=== PATIENT | female | born 1995 | race Caucasian/White ===

== ENCOUNTER 2017-08-24 13:19 | Emergency (ER) | payer SELFPAY ==
[~2017-08-24] VITALS: Ht 157.5 cm; Wt 49.6 kg
[~2017-08-24 13:19] MED LIST: ONDA4TAB10 SL; PRLSR20 PO; SUMA50TA15 PO
[2017-08-24 13:34] VITALS: TEMP 37.7; Ht 157.5 cm; Wt 49.6 kg
[2017-08-24] MEDS ORDERED: ONDANSETRON INJ 2 MG/ML 2 ML VIAL IV STA (14:37)
[2017-08-24] MEDS ORDERED: SODIUM CHLORIDE 0.9% 1000ML 1,000 ML IV STA (14:37)
[2017-08-24 15:21] VITALS: O2SAT 98
[2017-08-24 15:23] LABS: BASO % 0.2 %; BASO ABS # 0.02 K/uL (0-0.2); EOS % 3.2 %; EOS ABS # 0.27 K/uL (0-0.5); HEMOGLOBIN 13.4 g/dL (12.0-16.0); IG# 0.01 K/uL (0.00-0.02); LYMPH % 22.1 %; LYMPH ABS # 1.85 K/uL (1.2-3.4); MEAN CELL VOLUME 92.6 fL (80-100); MEAN CORPUSCULAR HEMOGLOBIN 31.8 pg (25-34); MEAN CORPUSCULAR HGB CONC 34.4 g/dl (32-36); MEAN PLATELET VOLUME 8.9 fL (7.4-10.4); MONO % 7.3 %; MONO ABS # 0.61 K/uL (0.11-0.59); NEUT % 67.1 %; PLATELET COUNT 321 K/uL (130-400); RED CELL DISTRIBUTION WIDTH CV 13.2 % (11.5-14.5); RED CELL DISTRIBUTION WIDTH SD 44.6 fL (36.4-46.3); WHITE BLOOD COUNT 8.36 K/uL (4.8-10.8)
--- NOTE | 2017-08-24 15:30 | EMERGENCY ROOM VISIT NOTE ---
History First contact with patient: 14:25 Chief Complaint: DIZZY Stated Complaint: DIZZY,SKIN TURNS BLUE Nursing Triage Summary: Pt states was checked for the flu last week, neg. Pt states, "This morning I went to work, got drenched in sweat. My fingers turn blue. My skin feels like it's on fire and I threw up one time. I have been nauseated since and feel dizzy. It feels like I'm short of breath, but I don't think I really am. My heart isn't beating fast or anything. I've had really sharp cramps for two weeks now." History of Present Illness The patient is a 21 year old female who presents to the Emergency Room with complaints of feeling lightheaded/dizzy like she might pass out that started today. Patient states her symptoms started while she was at work. She states she became very lightheaded, nauseated and vomited one time, and states she was drenched in sweat. She states her hands and feet started to become numb and tingling, then turned blue and her lips also turned blue. She states her symptoms lasted for several hours, but have mostly resolved at this time. She reports some tightness in her chest during the symptoms, but denies any chest pain or shortness of breath. She states the dizziness is worse when she is standing or walking around, and better if she is sitting or lying down. She states she had a similar episode 3 weeks ago. She was seen by her primary care provider last week to be tested for the flu due to fevers and her rash, she states this was negative. She denies any continued fevers, but states she has been having body aches and chills. She states she called her primary care provider today and was told to come to the ER for further evaluation. She also states that she has been having severe abdominal cramps for the past week that calming go, these are currently constant and she rates her pain as 6/10. She has not taken any medication for pain. She reports a history of ovarian cysts and irregular periods, she is unsure of her last menstrual period but thinks it was 2 or 3 months ago. She states she is sexually active and monogamous with her fianc, she states she did take a test at home yesterday and reports this was negative. She denies any dysuria, hematuria, or urinary frequency. Review of Systems A complete 10 point review of systems was reviewed with the patient with pertinent positives and negatives as per history of present illness. All else were negative. Past Medical/Surgical History Medical Problems: (1) Esophageal Reflux (2) Ovarian Cyst Nec/Nos (3) Personal History, Pneumonia (Recurrent) Surgical Problems: (1) No significant past surgical history Family History FH: migraines Social History Smoking Status: Current Every Day Smoker Alcohol Use: occasionally Drug Use: none Marital Status: in relationship Housing Status: lives with family Occupation Status: student Current/Historical Medications Scheduled Ondasetron Odt (Zofran Odt), 4 MG SL Q6H Allergies Reviewed in chart Physical Exam Vital Signs Date Time Temp Pulse Resp B/P (MAP) Pulse Ox O2 Delivery O2 Flow Rate FiO2 08/24/17 17:33 83 20 103/70 100 Room Air 08/24/17 16:33 73 20 105/64 79 96/79 79 114/74 08/24/17 16:18 72 08/24/17 15:21 98 Room Air 08/24/17 13:34 37.7 98 18 116/77 99 Room Air Physical Exam CONSTITUTIONAL: Pleasant and cooperative. No acute distress. Mildly dehydrated , but otherwise well appearing and well nourished. HEENT: Normocephalic, atraumatic. Pupils equal, round and reactive to light, EOMI. TMs normal. Pharynx normal. Tacky mucous membranes. NECK: Supple, full active range of motion without discomfort. RESPIRATORY: Clear to auscultation bilaterally with no wheezing, crackles, rhonchi or stridor. Equal expansion bilaterally. CARDIOVASCULAR: Regular rate and rhythm with no murmurs, rubs or gallops. Normal peripheral perfusion, extremities are pink and warm with intact pulses and brisk cap refill. No edema. GASTROINTESTINAL: Soft, diffuse mildly tender in the lower abdomen, most tender in the left lower quadrant, nondistended. No rebound tenderness or guarding. No CVA tenderness. No palpable masses or HSM. Bowel sounds present in all quadrants. PELVIC EXAM: VULVA: No ulcers, vesicles or atrophy. VAGINA: Clear-white discharge, no foul odor, no blood. CERVIX: Closed, pink, nontender, no cervical motion tenderness, no discharge. UTERUS: Normal size, nontender. ADNEXA: No masses or tenderness. A nurse was present as a raw hide trimmer during the examination. MUSCULOSKELETAL: Full range of motion of all joints without discomfort. INTEGUMENTARY: No rash or other significant dermatologic conditions noted. NEUROLOGIC: Alert and oriented X 4 with normal affect. Cranial nerves II-XII grossly intact. No focal neurologic deficits noted. Normal strength and sensation in all 4 extremities. Negative pronator drift. Negative Romberg. Normal speech. Normal gait observed. Medical Decision & Procedures ER Provider Diagnostic Interpretation: PELVIC COMPLETE NON OB HISTORY: 21 years-old Female lower abdominal pain, eval ovarian cyst, r/o torsion acute left lower quadrant abdominal pain COMPARISON: Pelvic ultrasound 01/16/2016 TECHNIQUE: Multiple real-time sonographic images of the deep pelvic structures were obtained transabdominally assessing grayscale appearance, color and spectral flow FINDINGS: Anteflexed uterus measures 8.5 x 3.7 x 5.0 cm. Endometrium measures 1.6 cm and is homogeneous. No myometrial mass lesions identified. The right ovary measures 3.6 x 1.9 x 2.6 cm and is unremarkable with arterial inflow documented. Left ovary is also within normal limits measuring 3.8 x 1.7 x 3.9 cm with arterial inflow documented. No adnexal mass lesions identified. Normal follicles are seen. Trace free pelvic fluid, likely physiologic. IMPRESSION: 1. Unremarkable sonographic appearance of the uterus and ovaries. No evidence of ovarian torsion or ovarian cyst. 2. Trace free pelvic fluid, likely physiologic. 3. Endometrium measures within the upper limits of normal at 1.6 cm, likely secondary to secretory phase of menstrual cycle. ----- CHEST 2 VIEWS ROUTINE HISTORY: 21 years-old Female EVALUATE ALTERED MENTAL STATUS/WEAKNESS acute dizziness with altered mental status COMPARISON: Chest radiograph 04/11/2016 TECHNIQUE: PA and lateral views of the chest FINDINGS: Cardiomediastinal and hilar silhouettes are within normal limits. No pneumothorax, pleural effusion, focal airspace consolidation or overt pulmonary edema. Bones of the chest appear grossly intact. IMPRESSION: No acute process. Laboratory Results 08/24/17 15:05 Red Blood Count 4.21, Mean Corpuscular Volume 92.6, Mean Corpuscular Hemoglobin 31.8, Mean Corpuscular Hemoglobin Concent 34.4, Mean Platelet Volume 8.9, Neutrophils (%) (Auto) 67.1, Lymphocytes (%) (Auto) 22.1, Monocytes (%) (Auto) 7.3, Eosinophils (%) (Auto) 3.2, Basophils (%) (Auto) 0.2, Neutrophils # (Auto) 5.60, Lymphocytes # (Auto) 1.85, Monocytes # (Auto) 0.61, Eosinophils # (Auto) 0.27, Basophils # (Auto) 0.02 08/24/17 15:05 Test 08/24/17 15:05 08/24/17 17:45 08/24/17 18:01 White Blood Count 8.36 K/uL (4.8-10.8) Red Blood Count 4.21 M/uL (4.2-5.4) Hemoglobin 13.4 g/dL (12.0-16.0) Hematocrit 39.0 % (37-47) Mean Corpuscular Volume 92.6 fL (80-100) Mean Corpuscular Hemoglobin 31.8 pg (25-34) Mean Corpuscular Hemoglobin Concent 34.4 g/dl (32-36) Platelet Count 321 K/uL (130-400) Mean Platelet Volume 8.9 fL (7.4-10.4) Neutrophils (%) (Auto) 67.1 % Lymphocytes (%) (Auto) 22.1 % Monocytes (%) (Auto) 7.3 % Eosinophils (%) (Auto) 3.2 % Basophils (%) (Auto) 0.2 % Neutrophils # (Auto) 5.60 K/uL (1.4-6.5) Lymphocytes # (Auto) 1.85 K/uL (1.2-3.4) Monocytes # (Auto) 0.61 K/uL (0.11-0.59) Eosinophils # (Auto) 0.27 K/uL (0-0.5) Basophils # (Auto) 0.02 K/uL (0-0.2) RDW Standard Deviation 44.6 fL (36.4-46.3) RDW Coefficient of Variation 13.2 % (11.5-14.5) Immature Granulocyte % (Auto) 0.1 % Immature Granulocyte # (Auto) 0.01 K/uL (0.00-0.02) Urine Color YELLOW Urine Appearance CLEAR (CLEAR) Urine pH 7.5 (4.5-7.5) Urine Specific [place] 1.010 (1.000-1.030) Urine Protein NEG (NEG) Urine Glucose (UA) NEG (NEG) Urine Ketones NEG (NEG) Urine Occult Blood NEG (NEG) Urine Nitrite NEG (NEG) Urine Bilirubin NEG (NEG) Urine Urobilinogen NEG (NEG) Urine Leukocyte Esterase NEG (NEG) Urine Test NEG (NEG) Anion Gap 6.0 mmol/L (3-11) Est Creatinine Clear Calc Drug Dose 95.5 ml/min Estimated GFR () 136.5 Estimated GFR (Non- 117.7 BUN/Creatinine Ratio 15.6 (10-20) Calcium Level 9.0 mg/dl (8.5-10.1) Total Bilirubin 0.6 mg/dl (0.2-1) Direct Bilirubin 0.1 mg/dl (0-0.2) Aspartate Amino Transf (AST/SGOT) 13 U/L (15-37) Alanine Aminotransferase (ALT/SGPT) 17 U/L (12-78) Alkaline Phosphatase 59 U/L (45-117) Total Protein 7.8 gm/dl (6.4-8.2) Albumin 4.2 gm/dl (3.4-5.0) Thyroid Stimulating Hormone (TSH) 0.888 uIu/ml (0.300-4.500) Monoscreen NEG (NEG) Influenza Type A Antigen Neg for Influ A (NEG) Influenza Type B Antigen Neg for Influ B (NEG) Medications Administered Medications (Trade) Dose Ordered Sig/Lorenza Route Start Time Stop Time Status Last Admin Dose Admin Sodium Chloride 1,000 ml @ 999 mls/hr Q1H1M STAT IV 08/24/17 14:37 08/24/17 15:37 DC 08/24/17 15:23 999 MLS/HR Ondansetron HCl (Zofran Inj) 4 mg NOW STAT IV 08/24/17 14:37 08/24/17 14:41 DC 08/24/17 15:23 4 MG Ketorolac Tromethamine (Toradol Inj) 15 mg NOW STAT IV 08/24/17 17:17 08/24/17 17:19 DC 08/24/17 17:41 15 MG ECG Indication: other (dizziness) Rate (beats per minute): 68 Rhythm: normal sinus Findings: no acute ischemic change, no ectopy Change: no significant change (when compared to EKG from 10/10/2010) Medical Decision CC: Patient presenting with complaint of lightheadedness, feeling like she will pass out Interpretation of Labs: No leukocytosis, no anemia, no significant electrolyte abnormalities, normal renal function, normal liver enzymes and lipase. TSH within normal limits. Monospot negative. Influenza negative. UA negative, urine negative. Differential Diagnosis: Includes, but not limited to dehydration, orthostasis, vasovagal, near syncope, cardiac arrhythmia, electrolyte abnormality, ovarian cyst, ectopic , ovarian torsion, influenza, mononucleosis, UTI, among others. Medication Reconciliation: I attest that I have personally reviewed the patient' s current medication list. Initial vital signs review: I reviewed the patient's vital signs and interpret them as follows: T: Afebrile; BP: Normotensive; HR: Within normal limits; RR : Within normal; Pulse Ox: Within normal limits on room air. Blood pressure screening: The patient was found to have normal blood pressure on screening and does not require follow-up for repeat blood pressure check. Negative orthostatic vital signs, although these appear to be done after patient received IV fluid bolus, and her heart rate is noted to be about 20-30 points lower than on arrival after IV fluids. Summary: Patient was evaluated at bedside, history and physical exam performed. Patient is alert and oriented, in no acute distress, resting calmly in the stretcher. Neurologic exam is normal with no focal deficits. The patient appears mildly dehydrated on exam. Orders were placed at bedside for labs, UA and urine , IV fluids for hydration, Zofran for nausea, chest x-ray, EKG, pelvic ultrasound to evaluate for ovarian pathology Patient discussed with Dr. Rubi, who agrees with my assessment and plan. Labs reviewed as above, unremarkable. EKG shows normal sinus rhythm with no acute ischemic changes and unchanged from previous EKG by my interpretation. Pelvic ultrasound is unremarkable, no ovarian cyst or torsion. Chest x-ray is unremarkable. Patient reassessed multiple times throughout ED stay, she is feeling much better after the Zofran and IV fluids. She is still complaining of some abdominal cramps, she was given IV Toradol for this. I discussed the option of a pelvic exam with the patient, she states she would like to do this and would like to be tested for STDs. Pelvic exam was unremarkable, no CMT, generalized tenderness, or abnormal discharge to concern for active STD or PID. Cultures for chlamydia, gonorrhea, trichomoniasis were sent to the lab. Patient was updated on all results and plan for discharge, and was encouraged to follow up closely with her PCP for continued evaluation and management of her symptoms. She was also given strict return precautions should her symptoms worsen, she verbalized understanding. The patient was discharged home in stable condition and ambulatory. Impression Primary Impression: Light headed Additional Impressions: Dehydration Pelvic pain Departure Information Dispostion Home / Self-Care Condition GOOD Prescriptions Ondasetron Odt (ZOFRAN ODT) 4 Mg Tab 4 MG SL Q6H for Nausea, #6 TAB Prov: Justyna Wright, NIELS 08/24/17 Referrals Michelle Reid D.O. (PCP) Patient Instructions ED Near Syncope [place], ED Pelvic [facility] Additional Instructions You have been treated in the Emergency Department for your pelvic pain and dizziness. Laboratory results and imaging studies have ruled out any emergent causes for your symptoms which would warrant admission or surgery. Your Influenza test today was NEGATIVE. Cultures were sent to the lab to test for chlamydia, gonorrhea, trichomoniasis. These tests generally take 2-3 days for results, you will be notified of any results that are abnormal. You have been prescribed Zofran to be used for any nausea or vomiting, one tablet every 6-8 hours as needed. Take as prescribed. For pain control, you can use the following [id number] medicines (if >12 yo): - Regular strength (325mg/tab) Tylenol (acetaminophen) 2 tabs every 4-6 hours as needed. Do not exceed 10 tablets in a 24 hour period. Avoid taking more than 3000 mg of Tylenol per day. This includes any other sources of acetaminophen you may take on a regular basis. - Regular strength (200 mg/tab) Advil (ibuprofen) 6 tabs every 6-8 hours as needed. Do not exceed a dose of 2400 mg per day. Drink plenty of fluids to stay well hydrated. As with any trip to the Emergency Department, you should follow-up with your Primary Care Provider in the next few days for continued management of your symptoms. Return to the emergency department if your symptoms worsen, including development of chest pain, shortness of breath, severe dizziness or passing out , persistent vomiting, vomiting or coughing up blood, blood in your stool or urine, fevers > 101.5, or any other concerns. Work Instructions Return To Work: 2 days Problem Qualifiers
[2017-08-24 15:41] LABS: ALBUMIN 4.2 gm/dl (3.4-5.0); CREATININE 0.73 mg/dl (0.60-1.20); POTASSIUM 3.8 mmol/L (3.5-5.1)
[2017-08-24 15:52] LABS: TOTAL PROTEIN 7.8 gm/dl (6.4-8.2)
--- NOTE | 2017-08-24 17:02 | DIAGNOSTIC IMAGING REPORT ---
PELVIC COMPLETE NON OB HISTORY: 21 years-old Female lower abdominal pain, eval ovarian cyst, r/o torsion acute left lower quadrant abdominal pain COMPARISON: Pelvic ultrasound 01/16/2016 TECHNIQUE: Multiple real-time sonographic images of the deep pelvic structures were obtained transabdominally assessing grayscale appearance, color and spectral flow FINDINGS: Anteflexed uterus measures 8.5 x 3.7 x 5.0 cm. Endometrium measures 1.6 cm and is homogeneous. No myometrial mass lesions identified. The right ovary measures 3.6 x 1.9 x 2.6 cm and is unremarkable with arterial inflow documented. Left ovary is also within normal limits measuring 3.8 x 1.7 x 3.9 cm with arterial inflow documented. No adnexal mass lesions identified. Normal follicles are seen. Trace free pelvic fluid, likely physiologic. IMPRESSION: 1. Unremarkable sonographic appearance of the uterus and ovaries. No evidence of ovarian torsion or ovarian cyst. 2. Trace free pelvic fluid, likely physiologic. 3. Endometrium measures within the upper limits of normal at 1.6 cm, likely secondary to secretory phase of menstrual cycle. The above report was generated using voice recognition software. It may contain grammatical, syntax or spelling errors. Electronically signed by: Koko Keating M.D. 08/24/2017 5:00 PM Dictated Date/Time: 08/24/2017 4:57 PM
--- NOTE | 2017-08-24 17:11 | DIAGNOSTIC IMAGING REPORT ---
CHEST 2 VIEWS ROUTINE HISTORY: 21 years-old Female EVALUATE ALTERED MENTAL STATUS/WEAKNESS acute dizziness with altered mental status COMPARISON: Chest radiograph 04/11/2016 TECHNIQUE: PA and lateral views of the chest FINDINGS: Cardiomediastinal and hilar silhouettes are within normal limits. No pneumothorax, pleural effusion, focal airspace consolidation or overt pulmonary edema. Bones of the chest appear grossly intact. IMPRESSION: No acute process. The above report was generated using voice recognition software. It may contain grammatical, syntax or spelling errors. Electronically signed by: Koko Keating M.D. 08/24/2017 5:09 PM Dictated Date/Time: 08/24/2017 5:08 PM
[2017-08-24] MEDS ORDERED: KETOROLAC TROMETHAMINE 30 MG/ML VIAL IV STA (17:17)
[2017-08-24] MEDS ORDERED: ONDA4TAB10 SL (17:33)
[2017-08-24 18:17] LABS: INFLUENZA B ANTIGEN Neg for Influ B (NEG)
[2017-08-24 18:39] VITALS: BP 104/70; PULSE 76; O2SAT 100
== END 2017-08-24 18:44 | disposition home or self-care (01) ==
LOC: C.EDB 13:20 → C.EDC 18:44
DX: R42 Dizziness and giddiness (principal); R10.2 Pelvic and perineal pain; E86.0 Dehydration; R11.2 Nausea with vomiting, unspecified; R61 Generalized hyperhidrosis; R20.0 Anesthesia of skin; R68.83 Chills (without fever); R10.32 Left lower quadrant pain; K21.9 Gastro-esophageal reflux disease without esophagitis; N92.6 Irregular menstruation, unspecified; F17.200 Nicotine dependence, unspecified, uncomplicated

== ENCOUNTER → 2017-09-30 | Outpatient (CLI) | payer OTHER ==
[~2017-09-30] MED LIST changes: -PRLSR20 PO; -SUMA50TA15 PO
[2017-09-30 17:49] LABS: ALBUMIN 4.2 gm/dl (3.4-5.0); ALT/SGPT 21 U/L (12-78); AST/SGOT 14 U/L (15-37); BLOOD UREA NITROGEN 11 mg/dl (7-18); CALCIUM 9.6 mg/dl (8.5-10.1); CARBON DIOXIDE 28 mmol/L (21-32); CREATININE 0.89 mg/dl (0.60-1.20); GLUCOSE 67 mg/dl (70-99); POTASSIUM 3.8 mmol/L (3.5-5.1); SODIUM 136 mmol/L (136-145)
[2017-09-30 17:50] LABS: ALKALINE PHOSPHATASE 61 U/L (45-117); TOTAL PROTEIN 8.1 gm/dl (6.4-8.2)
[2017-10-04 14:40] LABS: ANA SCREEN TC 249X NEGATIVE (NEGATIVE)
== END | disposition home or self-care (01) ==
LOC: C.LABBFT 12:11
PROVIDERS: ATTEND Physician Assistant Medical
DX: R42 Dizziness and giddiness (principal); R60.0 Localized edema

== ENCOUNTER → 2017-10-07 | Outpatient (CLI) | payer OTHER ==
--- NOTE | 2017-10-07 10:27 | DIAGNOSTIC IMAGING REPORT ---
ABDOMINAL ULTRASOUND COMPLETE HISTORY: R14.0 Abdominal [id number]. COMPARISON: Abdomen and pelvis CT 04/11/2016. Abdominal ultrasound 04/02/2016. FINDINGS: Pancreas: The pancreas demonstrates a normal echotexture. Liver: Unremarkable. Gallbladder: No gallbladder wall thickening. No gallstones. CBD: 4 mm. Kidneys: No hydronephrosis. 4 mm echogenic focus within the left kidney does not demonstrate shadowing and therefore is unlikely to represent a stone. Spleen: Normal in size measuring 8.7 cm. Aorta: Normal in caliber. IVC: Patent. IMPRESSION: No significant abnormality identified within the within the abdomen. Electronically signed by: Tong Denny M.D. 10/07/2017 10:25 AM Dictated Date/Time: 10/07/2017 10:23 AM
== END | disposition home or self-care (01) ==
LOC: C.ULTRBC 08:41
PROVIDERS: ATTEND Physician Assistant Medical
DX: R73.09 Other abnormal glucose (principal); R14.0 Abdominal distension (gaseous)

== ENCOUNTER → 2017-10-27 | Outpatient (CLI) | payer OTHER ==
[~2017-10-27] MED LIST changes: +GADAVIST IV PRN
--- NOTE | 2017-10-27 11:51 | DIAGNOSTIC IMAGING REPORT ---
MRI OF THE BRAIN COMBO CLINICAL HISTORY: Headaches. Visual problems. COMPARISON STUDY: CT of the brain dated 05/27/2015. TECHNIQUE: MRI of the brain was performed utilizing various T1 and T2-weighted sequences in the axial, sagittal, and coronal planes. Contrast-enhanced sequences were acquired following the administration of 4.5 cc of Gadavist. FINDINGS: Brain parenchyma: The brain parenchyma is normal in appearance. There is no hemorrhage or mass effect. There is no restricted diffusion to suggest acute ischemia. No enhancing mass lesion is identified on the postcontrast images. Shearer-white matter differentiation is preserved. No extra-axial fluid collection is seen. The cerebellar tonsils are normal in configuration. Ventricles, sulci, and cisterns: Normal in configuration. Pituitary and sella: Unremarkable. Intracranial vasculature: Normal flow voids are maintained at the skull base. Orbits: The bony orbits are grossly intact. Orbital contents are normal in appearance. Sinuses and mastoids: There is mucosal thickening within air-fluid level seen in the right maxillary antrum. The remaining paranasal sinuses and the mastoid air cells are clear. Calvarium: Unremarkable. Cervical cord: Partially visualized cervical spinal cord is normal in morphology and signal intensity. IMPRESSION: 1. No acute intracranial abnormality. 2. Right maxillary sinus disease as above. Electronically signed by: Logan Becker M.D. 10/27/2017 11:49 AM Dictated Date/Time: 10/27/2017 11:46 AM
== END | disposition home or self-care (01) ==
LOC: C.MRI 10:48
PROVIDERS: ATTEND Physician Assistant Medical
DX: J32.0 Chronic maxillary sinusitis (principal); R25.3 Fasciculation; R20.2 Paresthesia of skin; R51 Headache; H54.7 Unspecified visual loss

== ENCOUNTER → 2017-11-16 | Outpatient (CLI) | payer OTHER ==
[~2017-11-16] MED LIST changes: -GADAVIST IV PRN
[2017-11-16 15:45] LABS: BASO % 0.3 %; BASO ABS # 0.02 K/uL (0-0.2); EOS % 3.8 %; HEMATOCRIT 43.9 % (37-47); HEMOGLOBIN 15.5 g/dL (12.0-16.0); IG# 0.01 K/uL (0.00-0.02); LYMPH % 33.2 %; LYMPH ABS # 2.64 K/uL (1.2-3.4); MEAN CELL VOLUME 91.8 fL (80-100); MEAN CORPUSCULAR HEMOGLOBIN 32.4 pg (25-34); MEAN CORPUSCULAR HGB CONC 35.3 g/dl (32-36); MEAN PLATELET VOLUME 9.4 fL (7.4-10.4); MONO ABS # 0.48 K/uL (0.11-0.59); NEUT % 56.6 %; NEUT ABS # 4.51 K/uL (1.4-6.5); PLATELET COUNT 327 K/uL (130-400); RED CELL DISTRIBUTION WIDTH CV 12.3 % (11.5-14.5); RED CELL DISTRIBUTION WIDTH SD 41.7 fL (36.4-46.3); WHITE BLOOD COUNT 7.96 K/uL (4.8-10.8)
[2017-11-16 16:07] LABS: ALBUMIN 4.8 gm/dl (3.4-5.0); ALT/SGPT 16 U/L (12-78); AST/SGOT 13 U/L (15-37); BLOOD UREA NITROGEN 9 mg/dl (7-18); CALCIUM 9.1 mg/dl (8.5-10.1); CARBON DIOXIDE 28 mmol/L (21-32); GLUCOSE 76 mg/dl (70-99); POTASSIUM 3.7 mmol/L (3.5-5.1); SODIUM 136 mmol/L (136-145)
[2017-11-16 16:17] LABS: ALKALINE PHOSPHATASE 74 U/L (45-117); TOTAL PROTEIN 8.6 gm/dl (6.4-8.2)
== END | disposition home or self-care (01) ==
LOC: C.LAB1850 15:16
PROVIDERS: ATTEND Internal Medicine
DX: R14.0 Abdominal distension (gaseous) (principal); R60.0 Localized edema; R42 Dizziness and giddiness; R51 Headache; R20.2 Paresthesia of skin; R11.0 Nausea; R21 Rash and other nonspecific skin eruption

== ENCOUNTER → 2017-11-22 | Outpatient (CLI) | payer OTHER ==
[2017-11-22 11:32] LABS: HEP C IGG 13 YRS+OLDER_RFLX NEG (NEG)
== END | disposition home or self-care (01) ==
LOC: C.LAB1850 09:17
PROVIDERS: ATTEND Internal Medicine
DX: R20.2 Paresthesia of skin (principal); R11.0 Nausea; R25.3 Fasciculation; R21 Rash and other nonspecific skin eruption; R51 Headache; H54.7 Unspecified visual loss; R10.9 Unspecified abdominal pain; R60.0 Localized edema; R42 Dizziness and giddiness; R14.0 Abdominal distension (gaseous)

== ENCOUNTER → 2018-03-01 | Outpatient (CLI) | payer OTHER ==
[2018-03-01 10:06] LABS: BASO % 0.1 %; BASO ABS # 0.01 K/uL (0-0.2); EOS % 1.8 %; EOS ABS # 0.17 K/uL (0-0.5); HEMATOCRIT 34.4 % (37-47); HEMOGLOBIN 11.7 g/dL (12.0-16.0); IG# 0.02 K/uL (0.00-0.02); LYMPH % 14.8 %; LYMPH ABS # 1.38 K/uL (1.2-3.4); MEAN CELL VOLUME 91.5 fL (80-100); MEAN CORPUSCULAR HEMOGLOBIN 31.1 pg (25-34); MEAN PLATELET VOLUME 9.2 fL (7.4-10.4); MONO % 6.2 %; MONO ABS # 0.58 K/uL (0.11-0.59); NEUT % 76.9 %; NEUT ABS # 7.17 K/uL (1.4-6.5); PLATELET COUNT 269 K/uL (130-400); RED CELL DISTRIBUTION WIDTH CV 12.9 % (11.5-14.5); RED CELL DISTRIBUTION WIDTH SD 42.8 fL (36.4-46.3); WHITE BLOOD COUNT 9.33 K/uL (4.8-10.8)
== END | disposition home or self-care (01) ==
LOC: C.LAB1850 08:47
PROVIDERS: ATTEND Obstetrics & Gynecology
DX: Z34.01 Encounter for supervision of normal first pregnancy, first trimester (principal); Z34.02 Encounter for supervision of normal first pregnancy, second trimester

== ENCOUNTER 2023-02-23 07:17 | Inpatient (IN) ==
[2023-02-23] MEDS ORDERED: OXYTOCIN 30 UNITS/500 ML BAG IV PRN ×3 (07:58→17:23)
[2023-02-23] MEDS ORDERED: LIDOCAINE 1% LOCAL 20 ML VIAL INFIL PRN (07:58)
[2023-02-23] MEDS: LACTATED RINGER'S 1,000 ML IV PRN ×2 (08:03→11:13)
[2023-02-23 08:25] LABS: Hematocrit (blood only) 29.7 % (37.0-47.0); Hemoglobin 9.7 g/dl (12.0-16.0); Mean Corpuscular Hemoglobin 28.5 pg (25.0-34.0); Mean Corpuscular Hgb Conc 32.7 g/dL (32.0-36.0); Mean Corpuscular Volume 87.4 fL (80.0-100.0); Mean Platelet Volume 10.5 fL (9.4-12.4); Platelet Count 249 K/uL (130-400); RDW Coefficient of Variation 13.8 % (11.5-14.5); RDW Standard Deviation 43.6 fL (36.4-46.3)
[2023-02-23] MEDS ORDERED: BUPIVACAINE 0.25% PF 30 ML VIAL ONE (10:32)
[2023-02-23] MEDS ORDERED: fentaNYL 2MCG/ML ROPIVACAINE 1.25MG/ML 100 ML BAG EPI ONE (10:32)
[2023-02-23] MEDS ORDERED: fentaNYL citrate PF 100 MCG/2 ML VIAL ONE (10:32)
[2023-02-23] MEDS ORDERED: SODIUM CHLORIDE 0.9% PF INJ 10 ML VIAL ONE (10:32)
[2023-02-23] MEDS ORDERED: ePHEDrine sulfate 50 MG/ML AMP ONE (10:32)
[2023-02-23] MEDS ORDERED: LIDOCAINE 2%/EPINEPHRINE 1:200,000 20 ML PF ONE (10:32)
--- NOTE | 2023-02-23 10:44 | Anesthesiology Consultation ---
Date of Service February 23, 2023 Assessment & Plan (1) Encounter for pre-operative examination: Chart Review Chart Review: Acceptable Risk for Labor Epidural History Height/Weight Height: 5 ft 2 in Weight: 73.028 kg Allergies Allergy/AdvReac Type Severity Reaction Status Date / Time cefixime [From Suprax] Allergy Intermediate Rash Verified 02/22/23 11:10 Cephalosporins Allergy Intermediate rash Verified 02/22/23 11:10 latex Allergy Mild ITCHY Verified 02/22/23 11:10 Macrolide Antibiotics Allergy Unknown UNK Verified 02/22/23 11:10 Medications Home Medications Medication Instructions Recorded Confirmed Last Taken fluoxetine 20 mg capsule (Prozac) 20 mg PO HS 04/11/19 02/23/23 02/22/23 20:00 quetiapine 50 mg tablet 50 mg PO HS 12/27/20 02/23/23 02/22/23 20:00 prenat.vits,marcie,qhu-[id number]-ztxlt 1 tab PO HS 08/11/22 02/23/23 02/22/23 08:00 Active Medications Generic Name Dose Route Start Last Admin Trade Name Freq PRN Reason Stop Dose Admin Oxytocin 30 units in 500 mls @ 4 mls/hr 02/23/23 07:58 02/23/23 10:00 Pitocin IV 02/25/23 07:57 0.24 units/hr .Q24H PRN 4 mls/hr Labor Induction/Augmentation Titration Protocol 0.24 UNITS/HR Lactated Ringer's 1,000 mls @ 125 mls/hr 02/23/23 07:58 02/23/23 08:03 Lr IV 02/25/23 07:57 125 mls/hr .Q8H PRN Administration L&D Protocol Protocol Past Medical History Medical History Anxiety Bipolar 1 disorder Depression Gallstones GERD (gastroesophageal reflux disease) UNDER CONTROL Kidney stones PASSED ON OWN Migraine Oral contraceptive pill surveillance Panic disorder CLAUSTROPHOBIA Rectal bleeding Past Family History Family History Grandmother (Maternal) Breast cancer Grandfather (Paternal) Colorectal cancer Other Cancer Denies family history of Ovarian cancer Past Surgical History Surgical History History of breast biopsy LEFT History of colonoscopy History of cystoscopy History of endoscopy History of myringotomy Social History Smoking Status: Never smoker tobacco type: cigarettes Smoking cigarettes per day: 5 cigs per week Do You Dip or Chew Tobacco: No Hx Alcohol Use: No Hx Substance Use: No substance use type: does not use Physical Exam Vital Signs Last Vital Signs Temp 36.7 C 02/23/23 07:29 Pulse 75 02/23/23 10:32 Resp 20 02/23/23 07:29 BP 131/83 02/23/23 10:32 Testing Laboratory Results 02/23/23 08:09
--- NOTE | 2023-02-23 10:48 | History & Physical Report ---
Date of Service February 23, 2023 Assessment & Plan (1) Supervision of normal intrauterine in multigravida: Plan: IUP at 39+ weeks for IOL cervical balloon placed and pitocin induction begun epidural analgesia when requested anticipate vaginal Admission and Anticipated Discharge Date Admission Date: February 23, 2023 History of Present Illness Primary Care Provider: Moe Cheatham MD Patient is a 27 yo female EDC 03/01/23 who presents for elective induction of labor at 39 weeks. has been complicated by Bipolar disorder, GERD & history of kidney stones. GBS - negative Allergies Allergy/AdvReac Type Severity Reaction Status Date / Time cefixime [From Suprax] Allergy Intermediate Rash Verified 02/22/23 11:10 Cephalosporins Allergy Intermediate rash Verified 02/22/23 11:10 latex Allergy Mild ITCHY Verified 02/22/23 11:10 Macrolide Antibiotics Allergy Unknown UNK Verified 02/22/23 11:10 Home Medications Medication Instructions Recorded Confirmed Type fluoxetine 20 mg capsule (Prozac) 20 mg PO HS 04/11/19 02/23/23 History quetiapine 50 mg tablet 50 mg PO HS 12/27/20 02/23/23 History prenat.vits,marcie,csn-qhlj-drpdc 1 tab PO HS 08/11/22 02/23/23 History Patient History Medical History Anxiety Asthma NO INHALERS PAST 10 YRS Bipolar 1 disorder Depression Gallstones GERD (gastroesophageal reflux disease) UNDER CONTROL Kidney stones PASSED ON OWN Migraine Oral contraceptive pill surveillance Panic disorder CLAUSTROPHOBIA Rectal bleeding Surgical History History of breast biopsy LEFT History of colonoscopy History of cystoscopy History of endoscopy History of myringotomy Family History Grandmother (Maternal) Breast cancer Grandfather (Paternal) Colorectal cancer Other Cancer Denies family history of Ovarian cancer Social History (Updated 08/11/22 @ 14:32 by Francy Herrera) Smoking Status: Never smoker Tobacco Type: Cigarettes Cigarettes Per Day: 5 cigs per week; Second Hand Exposure: No; Do You Dip or Chew Tobacco: No; Hx Alcohol Use: No Hx Substance Use: No Preferred Language: Thai Communication Ability: Effective Visual Impairment: No Limitations Hearing Ability: Normal Teletype Clerk Required: No Beliefs That Will Affect Care: None marital status: marital status details: Hussain (28) [phone] Current Living Situation: Spouse Current Living Situation Comment: lives with spouse and son current occupational status: employed current occupation: own business, in home daycare Feels Safe at Home: Yes Assistive Devices: Contacts Review of Systems All systems reviewed & are unremarkable except as noted in HPI & below Physical Exam Constitutional: WD/WN, vitals as above Psychiatric: A+Ox3, euthymic affect Genitourinary: OB Exam Abdomen: + vertex, + estimated weight (6-7 pounds) and + irregular contractions Manual OB Exam: + cervical dilation fingertip, + cervical effacement 50% and + station -1 OB Exam Monitor Tracing: + external FHT monitor used, + external uterine monitor used, + category I and + normal FHT variability cervical balloon placed under direct visualization. catheter placed without difficulty through the internal os. 40cc sterile water placed into the balloon. the catheter was then secured to her right thigh under traction. she tolerated the procedure well. Results & Data Vital Signs (Past 12 Hours) Vital Signs Temp Pulse Resp BP 02/23/23 10:32 75 131/83 02/23/23 09:30 80 115/70 02/23/23 07:34 98 H 120/76 02/23/23 07:29 98.1 F 20 Coding Level of Care Code None Diagnoses Supervision of normal intrauterine in multigravida Z34.80 CPT Codes Misx Procedure Codes - 37928 Placement of cervical dilator: 35388 Placement of cervical dilator ([id number])
[2023-02-23] MEDS ORDERED: SODIUM CHLORIDE 0.9% PF INJ 10 ML VIAL EPI PRN (11:21)
[2023-02-23] MEDS ORDERED: fentaNYL citrate PF 100 MCG/2 ML VIAL EPI STA (11:21)
[2023-02-23] MEDS ORDERED: BUPIVACAINE 0.25% PF 30 ML VIAL EPI PRN (11:21)
[2023-02-23] MEDS ORDERED: LIDOCAINE 2% MPF LOCAL 5 ML VIAL EPI PRN (11:21)
[2023-02-23] MEDS ORDERED: fentaNYL citrate PF 100 MCG/2 ML VIAL EPI PRN (11:21)
[2023-02-23] MEDS ORDERED: ROPIVACAINE 0.5% PF 5 MG/ML 20 ML VIAL EPI PRN (11:21)
[2023-02-23] MEDS ORDERED: ePHEDrine sulfate 50 MG/ML AMP IV PRN (11:21)
[2023-02-23] MEDS ORDERED: SODIUM CHLORIDE 0.9% PF INJ 10 ML VIAL EPI STA (11:21)
[2023-02-23] MEDS ORDERED: fentaNYL 2MCG/ML ROPIVACAINE 1.25MG/ML 100 ML BAG EPI PRN (11:21)
[2023-02-23] MEDS ORDERED: LIDOCAINE 2%/EPINEPHRINE 1:200,000 20 ML PF EPI STA (11:21)
[2023-02-23] MEDS ORDERED: NALOXONE HCL 0.4 MG/1 ML VIAL/CARP IV PRN (11:21)
[2023-02-23] MEDS ORDERED: ONDANSETRON INJ 2 MG/ML 2 ML VIAL IV PRN (11:21)
[2023-02-23] MEDS ORDERED: BUPIVACAINE 0.25% PF 30 ML VIAL EPI STA (11:21)
[2023-02-23] MEDS ORDERED: NALOXONE HCL 1 MG in SODIUM CHLORIDE 0.9% 1000ML 1,000 ML IV PRN (11:21)
[2023-02-23] MEDS ORDERED: DIPHTHERIA/TETANUS/PERTUSSIS Vaccine (Tdap, Age 7+yrs) 0.5mL SYR/VL IM ONE (17:23)
[2023-02-23] MEDS ORDERED: HYDROCORTISONE ACETATE 25 MG SUPP PR PRN (17:23)
[2023-02-23] MEDS ORDERED: oxyCODONE/ACETAMINOPHEN 5mg/325mg TAB PO PRN (17:23)
[2023-02-23] MEDS ORDERED: BENZOCAINE 20% SPRY 85 APPLN/85 GM CAN EXT PRN (17:23)
[2023-02-23] MEDS ORDERED: ACETAMINOPHEN 325 MG TAB PO PRN (17:23)
[2023-02-23] MEDS ORDERED: bisacodyL 10 MG SUPP PR PRN (17:23)
--- NOTE | 2023-02-23 18:16 | Anesthesia Procedure Note ---
Date of Service February 23, 2023 Anesthesia Post Epidural Note Vital Signs Vital Signs: Temp Pulse Resp BP Pulse Ox 36.9 C 70 18 112/60 97 02/23/23 15:00 02/23/23 18:04 02/23/23 17:47 02/23/23 18:04 02/23/23 17:10 Notes Mental Status: alert / awake / arousable and participated in evaluation Nausea / Vomiting: adequately controlled Pain: adequately controlled Airway Patency, RR, SpO2: stable & adequate BP & HR: stable & adequate Hydration State: stable & adequate Neuraxial Anesthesia: was administered and sensory block is resolving Anesthetic Complications: no major complications apparent Epidural: Removed without complications and With tip intact
--- NOTE | 2023-02-23 19:06 | Delivery Summary ---
Vaginal Delivery Summary Date of Service February 23, 2023 Vaginal Delivery Summary and 1st Degree LAC Patient is a 27-year-old 2 para 1-0-0-1 female who presented for elective induction of labor at 39+ weeks. She received a cervical balloon because of unfavorable cervix along with Pitocin by induction protocol. The balloon fell out approximately 2 hours after was placed. Membranes were ruptured for clear fluid after she received epidural analgesia. She progressed to full dilation with the urge to push. She pushed effectively over intact perineum for delivery of a viable female infant. After the head was delivered, there was a mild shoulder dystocia which was resolved with flexion of the hips. This point the anterior shoulder delivered the rest the was delivered easily and placed on the mother's abdomen for further attention and drying. The cord was clamped and cut after 1 minute. The infant appeared to be less than vigorous, and was therefore reevaluated on the baby bed. She then became vigorous and was moving all 4 limbs. The placenta was then expressed intact with a three-vessel cord after obtaining cord blood. bleeding was controlled with dilute Pitocin and fundal massage. A first-degree perineal laceration was repaired with 3-0 chromic in usual fashion. Estimated blood loss was 100 cc. Mother and were doing well after delivery[place] [facility] [place] Delivery Type Details: and 1st Degree LAC
[2023-02-23] MEDS: DOCUSATE SODIUM 100 MG CAP PO SCH (20:32)
[2023-02-23] MEDS: IBUPROFEN 600 MG TAB PO PRN (20:33)
[2023-02-23] MEDS: QUEtiapine FUMARATE 25 MG TABLET PO SCH (21:59)
[2023-02-23] MEDS: FLUoxetine HCL 20 MG CAP PO SCH (21:59)
[2023-02-24] MEDS: IBUPROFEN 600 MG TAB PO PRN ×5 (03:09→23:19)
--- NOTE | 2023-02-24 06:27 | Obstetrical Progress Note ---
Date of Service <Moe Avilez MD - Last Filed: 02/24/23 07:34> February 24, 2023 Assessment & Plan <Moe Avilez MD - Last Filed: 02/24/23 07:34> (1) (spontaneous vaginal delivery): Vital Signs reviewed and WNL. (Tmax at 37.2) Hemoglobin Reviewed. 9.7 (02/23/23). Blood Type: O+, GBS-, Rubella Immune. Pt is doing well clinically. Encourage Ambulation, Monitor and Control pain with Motrin PRN, Resume regular diet, Monitor Lochia Encourage Breast feeding Pt counselled on discharge instructions. <Tarah Perez MD, FACOG - Last Filed: 02/24/23 08:36> (1) (spontaneous vaginal delivery): Subjective <Moe Avilez MD - Last Filed: 02/24/23 07:34> Ambulation: ambulating normally Voiding: voiding difficulty (a little burning, no increased frequency or urgency) Passing Gas:: Yes Diet Tolerance:: regular diet Lochia:: Moderate Feeding Type:: breast feeding Current Pain Level(1-10): 7 (when she is actively cramping) 27 yo F, s/p day 1 with moderate cramping pain of 7/10 occasionally and when ambulating. Constitutional: no fever, no chills or no fatigue Eyes: no diplopia Ear, Nose, Mouth, Throat: no ear pain or no sore throat Respiratory: no cough or no dyspnea Cardiovascular: no chest pain or no palpitations Breast: no breast pain Gastrointestinal: + nausea and + vomiting (when cramping, vomits a little); no abdominal pain or no diarrhea/loose stools Genitourinary (female): + dysuria; no urinary frequency or no urinary urgency Physical Exam <Moe Avilez MD - Last Filed: 02/24/23 07:34> Respiratory normal respiratory effort, lungs clear to auscultation Cardiovascular RRR, no murmur, no edema Gastrointestinal (Abdomen) Inspection/Auscultation: abdomen normal to inspection and normal bowel sounds uterine fundus ~ 2 cm below umbilicus Musculoskeletal Extremities: extremities normal to inspection (no calf pain or tenderness) Results & Data <Moe Avilez MD - Last Filed: 02/24/23 07:34> Vital Signs (Past 12 Hours) Vital Signs Temp Pulse Pulse Resp BP BP O2 Del Method 02/24/23 04:00 36.6 C 63 18 100/59 L Room Air 02/23/23 23:15 37.1 C 73 18 115/72 02/23/23 20:20 37.0 C 71 18 121/72 Room Air 02/23/23 18:47 85 18 107/60 02/23/23 19:21 37.2 C 73 18 129/57 L 02/23/23 18:47 85 107/60 02/23/23 18:32 76 115/65 02/23/23 18:21 81 108/55 L <Tarah Perez MD, FACOG - Last Filed: 02/24/23 08:36> Co-Signing Physician Notes Resident Physician Supervision Note: I interviewed and examined the patient. Discussed with Dr. Avilez and agree with findings and plan as documented in the note. Any exceptions or clarifications are listed here: [None] Documented By: Tarah Perez MD, FACOG
[2023-02-24 07:17] LABS: Hemoglobin 9.6 g/dl (12.0-16.0); Mean Corpuscular Hemoglobin 28.2 pg (25.0-34.0); Mean Platelet Volume 10.7 fL (9.4-12.4); Platelet Count 233 K/uL (130-400); RDW Coefficient of Variation 13.8 % (11.5-14.5); RDW Standard Deviation 44.1 fL (36.4-46.3); Red Blood Count 3.41 M/uL (4.20-5.40); White Blood Count 14.57 K/ul (4.8-10.8)
[2023-02-24] MEDS: PRENATAL VITAMIN 1 TAB PO SCH ×2 (07:39→07:48)
[2023-02-24] MEDS: DOCUSATE SODIUM 100 MG CAP PO SCH ×2 (07:39→20:59)
[2023-02-24] MEDS: QUEtiapine FUMARATE 25 MG TABLET PO SCH (19:37)
[2023-02-24] MEDS ORDERED: bisacodyL 5 MG TABEC PO SCH (20:00)
[2023-02-24] MEDS: FLUoxetine HCL 20 MG CAP PO SCH (20:59)
[2023-02-25] MEDS: IBUPROFEN 600 MG TAB PO PRN ×2 (04:16→08:09)
[2023-02-25 06:25] LABS: Hematocrit (blood only) 26.3 % (37.0-47.0); Hemoglobin 8.3 g/dl (12.0-16.0)
--- NOTE | 2023-02-25 06:33 | Obstetrical Progress Note ---
Date of Service <Moe Avilez MD - Last Filed: 02/25/23 07:14> February 25, 2023 Assessment & Plan <Moe Avilez MD - Last Filed: 02/25/23 07:14> (1) (spontaneous vaginal delivery): Vital Signs reviewed and WNL. (Tmax at 37.2) Hemoglobin Reviewed. 9.6 (02/23/23) and 8.3 (02/25/23). Blood Type: O+, GBS-, Rubella Immune. Pt is doing well clinically. Encourage Ambulation, Monitor and Control pain with Motrin PRN, Resume regular diet, Monitor Lochia Encourage Breast feeding Pt counselled on discharge instructions. <Mai Piedra MD, FACOG - Last Filed: 02/25/23 07:42> (1) (spontaneous vaginal delivery): Subjective <Moe Avilez MD - Last Filed: 02/25/23 07:14> Ambulation: ambulating normally Voiding: no voiding problems Passing Gas:: Yes Diet Tolerance:: regular diet Lochia:: Small Feeding Type:: breast feeding Current Pain Level(1-10): 2 27 yo F s/p day 2 Constitutional: no fever, no chills or no fatigue Eyes: no diplopia Ear, Nose, Mouth, Throat: no ear pain or no sore throat Respiratory: no cough or no dyspnea Cardiovascular: no chest pain or no palpitations Breast: no breast pain Gastrointestinal: no abdominal pain, no nausea, no vomiting or no diarrhea/loose stools Genitourinary (female): no dysuria, no urinary frequency or no urinary urgency Physical Exam <Moe Avilez MD - Last Filed: 02/25/23 07:14> Respiratory normal respiratory effort, lungs clear to auscultation Cardiovascular RRR, no murmur, no edema Gastrointestinal (Abdomen) Inspection/Auscultation: abdomen normal to inspection and normal bowel sounds Musculoskeletal Extremities: extremities normal to inspection (no calf pain or tenderness) Results & Data <Moe Avilez MD - Last Filed: 02/25/23 07:14> Vital Signs (Past 12 Hours) Vital Signs Temp Pulse Resp BP 02/24/23 23:15 36.5 C 76 18 100/62 02/24/23 19:20 36.8 C 80 18 113/74 <Mai Piedra MD, FACOG - Last Filed: 02/25/23 07:42> Co-Signing Physician Notes Resident Physician Supervision Note: I was present with Dr. Avilez during the history and exam. I discussed the case with the resident and agree with the findings and plan as documented in the note. Any exceptions or clarifications are listed here: stable ready for dc home, eating, voiding, ambulating, . abd soft ff 2 down nt, nt calves. ppd #2 s/p , dc home, instructions reviewed. f/u 6wk pp check. breast, rhpos, ri. Documented By: Mai Piedra MD, FACOG
[2023-02-25] MEDS: DOCUSATE SODIUM 100 MG CAP PO SCH (08:09)
[2023-02-25] MEDS: PRENATAL VITAMIN 1 TAB PO SCH (08:10)
== END 2023-02-25 11:15 | disposition home or self-care (01) | DRG 807 ==
LOC: 4S1 07:17 → 4E2 19:20

== ENCOUNTER 2023-08-02 09:23 | Inpatient (IN) ==
--- NOTE | 2023-08-02 10:37 | Emergency Department Note ---
Impression & Plan Suicidal ideation ED Provider Note NAME: MAYRA CALIXTO AGE: 27 SEX: F : 1995 ARRIVES VIA: Walk-In INFORMANT: [Patient] ED PROVIDER(S): [Logan Iqbal MD] CHIEF COMPLAINT: Mental health evaluation HISTORY OF PRESENT ILLNESS: The patient is a 27-year-old female presents to the ER with anxiety. She cannot sleep, she cannot function, she cannot take care of her children. She is 5 months . Patient had a similar presentation at 5 months after her previous but, was able to manage things as an outpatient. The patient does have outpatient psychiatric care. She sees [facility]. She is on medications. The patient was referred today by [facility]. The patient believes she is worse than she was the last time she was 5 months . She feels suicidal, she has thought about taking pills in overdose at the height of her anxiety. The patient is asking for inpatient psychiatric care. There is no cough or congestion. No urinary complaints. The patient's medical health has been at baseline. PMHx/PSHx/Social Hx: See Below PHYSICAL EXAM: GENERAL: Patient is in no acute distress. Tearful. HEENT: No acute trauma, normocephalic atraumatic, mucous membranes moist, no nasal congestion. NECK: No stridor, no adenopathy, no meningismus, trachea is midline. LUNGS: Clear to auscultation bilaterally, no wheeze, no rhonchi, breath sounds equal. HEART: Without murmurs gallops or rubs, regular rate and rhythm. ABDOMEN: Soft, nontender, no peritonitis. EXTREMITIES: No cyanosis, full range of motion of all the joints without pain or difficulty. NEUROLOGIC: Oriented x 3, no acute motor or sensory deficits, no focal weakness. SKIN: No jaundice, no diaphoresis. Psychiatric: Cooperative, voluntary, admits to suicidal ideation and thoughts of taking a pill overdose. DIFFERENTIAL DIAGNOSIS: Anxiety and depression, psychosis, , electrolyte imbalance, thyroid disorder, among others. EMERGENCY DEPARTMENT PROCEDURES: MEDICAL DECISION MAKING: There is no leukocytosis or concerning anemia. Platelet count slightly elevated. No renal failure or significant electrolyte abnormality. No concerning liver enzyme elevation. Patient appeared to be in a euthyroid state. testing returned negative. Urinalysis does not show infection. Urine tox was negative. Aspirin, Tylenol and alcohol levels were undetectable. COVID test was negative. On exam, the patient was resting comfortably. She was complaining of some suicidal ideation. The patient was felt medically clear. She was seen by psychiatry case management. The patient is being hospitalized at our facility on the psychiatric wing. She is being admitted voluntarily. The appropriate paperwork was completed and signed. Prior/Outside records/notes reviewed: [facility] [employer] note from 02/25/2023 discussing her hospitalization for a spontaneous vaginal delivery. Imaging/x-ray results per my interpretation: Chronic Medical/Social conditions affecting care: Care/Management discussed with: Psychiatry case management Level of care consideration(s): After review of the information above and other included data: --I believe the patient requires escalation of care to admission DISPOSITION: Voluntary psychiatric admission Past Med/Surg History Medical History (spontaneous vaginal delivery) Supervision of normal intrauterine in multigravida Oral contraceptive pill surveillance Rectal bleeding Gallstones Depression Panic disorder CLAUSTROPHOBIA Bipolar 1 disorder GERD (gastroesophageal reflux disease) UNDER CONTROL Anxiety Kidney stones PASSED ON OWN Migraine Surgical History History of breast biopsy LEFT History of colonoscopy History of cystoscopy History of endoscopy History of myringotomy Family History Grandmother (Maternal) Breast cancer Grandfather (Paternal) Colorectal cancer Other Cancer Denies family history of Ovarian cancer Social History Smoking Status: Never smoker Tobacco Type: Cigarettes Cigarettes Per Day: 5 cigs per week; Second Hand Exposure: No; Do You Dip or Chew Tobacco: No; Hx Alcohol Use: No Hx Substance Use: No Preferred Language: Bruneian Communication Ability: Effective Visual Impairment: No Limitations Hearing Ability: Normal Blind Escort Required: No Beliefs That Will Affect Care: None marital status: marital status details: Hussain (28) [phone] Current Living Situation: Spouse Current Living Situation Comment: lives with spouse and son current occupational status: employed current occupation: own business, in home daycare Feels Safe at Home: Yes Gender Identity: Female Assistive Devices: Contacts Allergies Allergies Allergy/AdvReac Type Severity Reaction Status Date / Time cefixime [From Suprax] Allergy Intermediate Rash Verified 02/22/23 11:10 Cephalosporins Allergy Intermediate rash Verified 02/22/23 11:10 latex Allergy Mild ITCHY Verified 02/22/23 11:10 Macrolide Antibiotics Allergy Unknown UNK Verified 02/22/23 11:10 Home Meds Home Medications Medication Instructions Recorded Confirmed fluoxetine 10 mg capsule See Rx Instructions .Route .COMPLEX 08/02/23 08/02/23 hydroxyzine HCl 25 mg tablet See Rx Instructions .Route .COMPLEX 08/02/23 08/02/23 lamotrigine 25 mg tablet See Rx Instructions .Route .COMPLEX 08/02/23 08/02/23 Results & Data (ED) Vital Signs Vital Signs - 24 hr 08/02/23 09:26 08/02/23 11:39 Temperature 36.8 C 37 C Temperature Source Temporal Artery Scan Oral Pulse Rate 98 H Pulse Rate [Left Finger] 93 H Respiratory Rate 20 24 Respiratory Effort / Characteristics Non-Labored Spontaneous Non-Labored Spontaneous Respiratory Depth Normal Normal Respiratory Pattern Regular Regular Blood Pressure 111/77 Blood Pressure [Left Arm] 109/71 Blood Pressure Mean 88 Blood Pressure Mean [Left Arm] 83 Blood Pressure Position Sitting Blood Pressure Position [Left Arm] Lying Pulse Oximetry 98 97 Oxygen Delivery Method Room Air Room Air Sepsis Recent Fever Within 48 Hours No Sepsis New/Unexplained Change in Mental Status No Sepsis Action Taken by Nursing No Action Required Home Medications Current Medication List: was personally reviewed by me Laboratory Data Attestation: I reviewed the patient's lab results. 08/02/23 10:24 08/02/23 10:24 Lab Results 08/02/23 08/02/23 08/02/23 Range/Units 09:55 10:24 10:27 WBC 10.49 (4.8-10.8) K/ul RBC 4.79 (4.20-5.40) M/uL Hgb 13.7 (12.0-16.0) g/dl Hct 41.6 (37.0-47.0) % MCV 86.8 (80.0-100.0) fL MCH 28.6 (25.0-34.0) pg MCHC 32.9 (32.0-36.0) g/dL RDW Std Deviation 42.6 (36.4-46.3) fL RDW Coeff of Dionte 13.5 (11.5-14.5) % Plt Count 412 H (130-400) K/uL MPV 9.0 L (9.4-12.4) fL Immature Gran % (Auto) 0.4 % Neut % (Auto) 85.1 % Lymph % (Auto) 10.4 % [place] % (Auto) 3.8 % Eos % (Auto) 0.1 % Baso % (Auto) 0.2 % Neut # (Auto) 8.93 H (1.40-6.50) K/uL Lymph # (Auto) 1.09 L (1.20-3.40) K/uL [place] # (Auto) 0.40 (0.11-0.59) K/uL Eos # (Auto) 0.01 (0.00-0.50) K/uL Baso # (Auto) 0.02 (0.00-0.20) K/uL Immature Gran # (Auto) 0.04 (0.01-0.20) K/uL Sodium 138 (136-145) mmol/L Potassium 3.8 (3.5-5.1) mmol/L Chloride 102 (98-107) mmol/L Carbon Dioxide 27 (21-32) mmol/L Anion Gap 9 (3-11) BUN 9 (6-23) mg/dl Creatinine 0.96 (0.6-1.2) mg/dl Est Cr Clr Drug Dosing 77.0 ml/min Est GFR ( Amer) 93.9 ml/min Est GFR (Non-Af Amer) 81.1 ml/min BUN/Creatinine Ratio 9.4 L (10-20) Glucose 99 (70-99(Fasting)) mg/dl Calcium 9.6 (8.6-10.3) mg/dl Total Bilirubin 0.9 (0.2-1.0) mg/dl AST 16 (13-39) U/L ALT 17 (7-52) U/L Alkaline Phosphatase 112 H (34-104) U/L Total Protein 8.4 H (6.0-8.3) gm/dl Albumin 4.7 (3.4-5.0) gm/dl Globulin 3.7 (2.5-4.0) gm/dl Albumin/Globulin Ratio 1.3 (0.9-2) TSH 1.328 (0.300-4.500) uIu/ml HCG, Qual Negative (Negative) Urine Color Yellow Urine Appearance Clear (Clear) Urine pH 7.0 (4.5-7.5) Ur Specific [place] 1.007 (1.000-1.030) Urine Protein Negative (Negative) Urine Glucose (UA) Negative (Negative) Urine Ketones Negative (Negative) Urine Blood Negative (Negative) Urine Nitrite Negative (Negative) Urine Bilirubin Negative (Negative) Urine Urobilinogen Negative (Negative) Ur Leukocyte Esterase 1+ H (Negative) Urine WBC (Auto) 1-5 (0-5) /hpf Urine RBC (Auto) 0-4 (0-4) /hpf U Hyaline Cast (Auto) 1-5 (0-5) /lpf U Epithel Cells (Auto) 20-30 H (0-5) /lpf Urine Bacteria (Auto) Negative (Negative) Salicylates < 3.0 L (3.0-30) mg/dl Urine Opiates Screen Neg (Neg) Ur Methadone, Qual Neg (Neg) Acetaminophen < 3 L (10-30) ug/ml Urine Barbiturates Neg (Neg) Ur Phencyclidine (PCP) Neg (Neg) U Amphetamin/Meth Scrn Neg (Neg) MDMA (Ecstasy) Screen Neg (Neg) U Benzodiazepines Scrn Neg (Neg) Ur Cocaine Metabolite Neg (Neg) U Marijuana (THC) Screen Neg (Neg) Ethyl Alcohol mg/dL < 10.0 (<10.0) mg/dl SARS-CoV-2, RNA, NAAT NEGATIVE (NEGATIVE) Administered Medications Discontinued Medications Hydroxyzine HCl (Hydroxyzine Hcl 25 Mg Tab) 25 mg PO NOW STA Stop: 08/02/23 11:41 Last Admin: 08/02/23 11:44 Dose: 25 mg Documented By: CPB Lorazepam (Lorazepam 1 Mg Tab) 1 mg SL NOW STA Stop: 08/02/23 11:41 Last Admin: 08/02/23 11:44 Dose: 1 mg Documented By: CPB Discharge Plan Visit Data Chief Complaint: Mental Health Evaluation Stated Complaint: MENTAL HEALTH ISSUES, REF BY DOC ED Provider: Logan Iqbal Discharge Problem: Suicidal ideation Patient Disposition: Admitted As Inpatient Condition: Good Discharge Instructions Interventions: ED Discharge Assessment Last Done: 08/02/23 12:57
[2023-08-02 10:41] LABS: Appearance Urine Clear (Clear); Bacteria Urine Automated Negative (Negative); Bilirubin Urine Negative (Negative); Blood Urine Negative (Negative); Color Urine Yellow; Epithelial Cell Urine Auto 20-30 /lpf (0-5); Glucose Urine UA Negative (Negative); Ketones Urine Negative (Negative); Leukocyte Esterase Urine 1+ (Negative); Nitrite Urine Negative (Negative); Protein Urine Negative (Negative); RBC Urine Automated 0-4 /hpf (0-4); Specific Gravity Urine 1.007 (1.000-1.030); Urobilinogen Urine Negative (Negative)
[2023-08-02 10:53] LABS: Basophils # (auto) 0.02 K/uL (0.00-0.20); Basophils % (auto) 0.2 %; Eosinophils # (auto) 0.01 K/uL (0.00-0.50); Eosinophils % (auto) 0.1 %; Hematocrit (blood only) 41.6 % (37.0-47.0); Hemoglobin 13.7 g/dl (12.0-16.0); Immature Granulocytes # (auto) 0.04 K/uL (0.01-0.20); Immature Granulocytes % (auto) 0.4 %; Lymphocytes # (auto) 1.09 K/uL (1.20-3.40); Lymphocytes % (auto) 10.4 %; Mean Corpuscular Hemoglobin 28.6 pg (25.0-34.0); Mean Corpuscular Hgb Conc 32.9 g/dL (32.0-36.0); Mean Corpuscular Volume 86.8 fL (80.0-100.0); Monocytes % (auto) 3.8 %; Neutrophils # (auto) 8.93 K/uL (1.40-6.50); Neutrophils % (auto) 85.1 %; Platelet Count 412 K/uL (130-400); RDW Coefficient of Variation 13.5 % (11.5-14.5); RDW Standard Deviation 42.6 fL (36.4-46.3); Red Blood Count 4.79 M/uL (4.20-5.40); White Blood Count 10.49 K/ul (4.8-10.8)
[2023-08-02 10:55] LABS: Acetaminophen < 3 ug/ml (10-30); Salicylate < 3.0 mg/dl (3.0-30)
[2023-08-02 10:57] LABS: Pregnancy Test, Serum Negative (Negative)
[2023-08-02 11:00] LABS: Albumin Globulin Ratio 1.3 (0.9-2); Albumin Level 4.7 gm/dl (3.4-5.0); BUN Creatinine Ratio 9.4 (10-20); Bilirubin,Total 0.9 mg/dl (0.2-1.0); Calcium 9.6 mg/dl (8.6-10.3); Est GFR (African American) 93.9 ml/min; Est GFR (Non-African American) 81.1 ml/min; Globulin 3.7 gm/dl (2.5-4.0); Potassium 3.8 mmol/L (3.5-5.1); Total Protein 8.4 gm/dl (6.0-8.3)
[2023-08-02 11:02] LABS: Amphetamines+Metham, Urine Neg (Neg); Barbiturates, Urine Neg (Neg); Benzodiazepine, Urine Neg (Neg); Cocaine, Urine Neg (Neg); MDMA (Ecstacy), Urine Neg (Neg); Marijuana, Urine Neg (Neg); Methadone, Urine Neg (Neg); Opiate, Urine Neg (Neg); Phencyclidine, Urine Neg (Neg)
[2023-08-02 11:14] LABS: Thyroid Stimulating Hormone 1.328 uIu/ml (0.300-4.500)
--- OUTSIDE RECORDS SUMMARY | 2023-08-02 11:31 | External Medical Summary | Summary of Care ---
Author Name Unknown Organization [facility] Address [address] [place] [address] Phone [phone] Care Team Providers Care Local Area Network Administrator Name Role Phone Moe Cheatham MD Primary Care Provi minerva Reason for Visit * Reason Onset Date Comments Advice 12/03/2022 Encounter Details Date Type Department Care Team Description 12/03/[address] [phone] Moe Cheatham MD [address] [place] [id number] Advice Allergies Active Allergy Reactions Severity Noted Date Comments Bactrim 08/29/2013 Throat irritation and infection? Cephalosporins 05/21/1999 Macrolides And Ketolides 11/26/2000 rash Other - Drugs 11/26/2000 Suprex documented as of this encounter (statuses as of 02/26/2023) Medications Medication Sig Dispensed Refills Start Date End Date Status QUEtiapine (SEROQUEL) 25 MG Tablet Take 25 mg by mouth at bedtime. 0 Active amphetamine salt combo (ADDERALL) 10 MG Tablet Take 10 mg by mouth daily. 0 Active Lisdexamfetamine Dimesylate (VYVANSE) 30 MG Capsule Take 30 mg by mouth daily. 0 Active documented as of this encounter (statuses as of 02/26/2023) Active Problems Problem Noted Date Constipation 12/09/2011 Overview: ICD-10 update of inactive term MOOD DISORDER 02/26/2011 Orthostatic hypotension 10/14/2010 Tobacco use disorder 10/14/2010 Asthma, mild persistent 09/18/2010 Myalgia and myositis 09/02/2010 Esophageal reflux 08/26/2007 Allergic rhinitis documented as of this encounter (statuses as of 02/26/2023) Resolved Problems Problem Noted Date Resolved Date Rectal bleeding 12/09/2011 08/03/2017 Loss of weight 12/09/2011 08/03/2017 Hypovolemia 10/14/2010 12/07/2011 Slow transit constipation 10/14/20102017 Acute URI 10/14/2010 12/07/2011 Intermittent asthma with reliever use up to twic e per week 09/02/2010 12/07/2011 Cough 09/02/2010 12/07/2011 Malaise and fatigue 09/02/2010 08/03/2017 Headache 09/02/2010 08/03/2017 Overview: ICD-10 update of inactive term Fever 09/02/2010 12/07/2011 Influenza with respiratory m anifestation other than pneumonia 09/02/2010 12/07/2011 Asthma with severity to be determined 01/13/2010 09/02/2010 Overview: Per Asthma Taxonomy ICD-10 update of inactive term OBSTIPATION 08/26/2007 12/07/2011 Abdominal pain, generalized 08/26/200711/2008 Overview: Resolved per Duplicate Protocol #2. Closed dislocation of other site of shoulder 12/07/2011 Strep sore throat 11/08/2006 12/07/2011 Acute pharyngitis 11/08/2006 2008 Overview: Resolved per Benign Acute Dxs Protocol #3 Asthma, allergic 11/08/2006 01/13/2010 ADVANCE DIRECTIVE INFORMATION 05/08/2005 Overview: Not applicable (under age of 18) Dermatitis 11/04/2004 12/07/2011 COSTOCHONDRITIS 06/30/2004 12/07/2011 ACUTE URI NOS 06/30/2004 09/06/2008 Overview: Resolved per Benign Acute Dxs Protocol #3 ENLARGEMENT LYMPH NODES 06/30/2004 12/07/19 12 Pediculus capitis 05/02/2004 12/07/2011 Abdominal pain, generalized 08/18/200111/17 Routine child health exam 08/18/20012017 Accidental poisoning by second-hand tobacco smok e 08/18/2001 12/07/2011 Overview: ICD-10 update of inactive term Other allergic rhinitis 11/02/2000 08/03/19 18 Overview: ICD-10 update of inactive term Pneumonia due to organism 2017 Overview: ICD-10 update of inactive term Dyspnea and respiratory abnormality 12/07/2011 Overview: ICD-10 update of inactive term documented as of this encounter (statuses as of 02/26/2023) Immunizations Name Administration Dates Next Due Hepatitis B, 0-19 yrs 09/06/1996,1995,08/20 Meningococcal Conjugate Vacc ine (Menactra/Menveo) 2009 PPD 04/22/2018,09/01/2017,08/15/2014 Seasonal Influenza, Quadriva lent, No Preserve, 6 Mons & Above, IM 09/01/2017 TDAP (age 10 and older)(Boostrix) 09/01/2017 TDAP (age 11 and older)(Adacel) 02/07/2007 Varicella Vaccine (Chicken Pox) 09/17/2008 documented as of this encounter Social History Tobacco Use Types Packs/Day Years Used Date Smoking Tobacco: Former Cigarettes 0.5 6 Smokeless Tobacco: Never Comments:father occ in the h ouse Alcohol Use Standard Drinks/Week Comments No 0 (1 standard drink = 0.6 oz pur e alcohol) Sex Assigned at Date Recorded Not on file documented as of this encounter Miscellaneous Notes * Telephone Encounter - Woodrow Zamora MD - 12/04/2022 3:32 PM EDT I have never seen the patient and is not a patient of [facility] Please inform them See details beloww * Telephone Encounter - Adair Lim LPN - 12/03/2022 12:46 PM EDT Visit date not found (in office), Visit date not found (telemedicine) Pt has not been seen since 2018. I see no documentation regarding any behavioral health information. * Telephone Encounter - WILIAM Gramajo - 12/03/2022 11:49 AM EDT Magdy from [facility] said she has to leave a message for dr Woodrow Zamora: Magdy said we had a meeting with behavioral health for the member and results can be found in Navinet. WILIAM Garmajo documented in this encounter Plan of Treatment Health Maintenance Due Date Last Done Comments COVID-19 Vaccine (#1) 03/13/1996 *SPIROMETRY ONCE FOR ASTHMA-ADULT 09/06/2016 Depression Screening, Annual for Pts 12 and Over 08/03/2018 08/03/2017 Pap Smear 11/12/2019 11/11/2016 Influenza Vaccine (FLU shot) (#1) 2023 09/01/2017 DTaP,Tdap,and Td Vaccines (7 - Td or Tdap) 09/01/2027 09/01/2017, 02/07/2007, 08/18/2001, Additional history exists Hepatitis B Completed 09/06/1996, 08/19, 1995, Additional history exists MENINGOCOCCAL (MENACTRA/MENVEO) Aged Out 2009 No longer eligible based on patient's age to complete this topic Hepatitis C Screening Completed 12/06/2015 Gonorrhea / Chlamydia Screen Discontinued 08/24/2017, 02/18/2015, 10/07/2010 GARDASIL-HPV IMMUNIZATION SERIES Aged Out No longer eligible based on patient's age to complete this topic Pneumococcal Vaccine: Pediatrics (0 to 5 Years) and At-Risk Patients (6 to 64 Years) Aged Out No longer eligible based on patient's age to complete this topic documented as of this encounter Medical Devices Not on filedocumented as of this encounter Care Teams Local Area Network Administrator Relationship Specialty Start Date End Date Moe Cheahtam MD [address] [place] [address] [place] BENITEZ [id number] PCP - General Internal Medicine 04/22/18 documented as of this encounter
[2023-08-02] MEDS ORDERED: hydrOXYzine HCl 25 MG TAB PO STA (11:40)
[2023-08-02] MEDS ORDERED: LORazepam 1 MG TAB SL STA (11:40)
[2023-08-02] MEDS ORDERED: hydrOXYzine HCl 25 MG TAB PO PRN ×3 (12:18→13:16)
[2023-08-02] MEDS ORDERED: SODIUM CHLORIDE 0.65% NA SOLN 45 ML (OCEAN) PRN ×2 (12:18→13:16)
[2023-08-02] MEDS ORDERED: MAGNESIUM HYDROXIDE SUSP 30 ML UDC PO PRN ×2 (12:18→13:16)
[2023-08-02] MEDS ORDERED: ACETAMINOPHEN 325 MG TAB PO PRN ×2 (12:18→13:16)
[2023-08-02] MEDS ORDERED: BISMUTH SUBSALICYLATE LIQD 236 ML PO PRN ×2 (12:18→13:16)
[2023-08-02] MEDS ORDERED: ALUMINUM/MAGNESIUM SUSP 30 ML UDC PO PRN ×2 (12:18→13:16)
[2023-08-02] MEDS ORDERED: FLUoxetine HCL 10 MG CAP PO SCH ×2 (12:30→22:00)
[2023-08-02] MEDS: hydrOXYzine HCl 25 MG TAB PO PRN (19:33)
[2023-08-03] MEDS: hydrOXYzine HCl 25 MG TAB PO PRN (07:37)
[2023-08-03] MEDS ORDERED: lamoTRIgine 25 MG TAB PO SCH ×3 (09:00→22:00)
[2023-08-03] MEDS ORDERED: QUEtiapine FUMARATE 25 MG TABLET PO PRN (09:21)
--- NOTE | 2023-08-03 11:00 | History & Physical ---
Date of Service August 03, 2023 Impression / Recommendations Impression 27 yo female with exacerbation of mood disorder and panic following several months of medication non compliance (took Prozac and Seroquel up to delivery. Overall, I spent a total of 58 minutes with this case, including review of chart, review of records, direct evaluation of the patient, counseling the patient, ordering medication, coordination with nursing, risk assessment, and documentation. (1) Bipolar 2 disorder: (2) Panic disorder: Plan The patient was admitted to the [facility] ([facility] mental health unit) on q15 min checks (behavioral with suicide precautions) for safety. The patient will participate in group, recreational, and milieu therapies and will be offered additional individual and family sessions as clinically appropriate. Risks/benefits/alternatives reviewed re: antidepressants for the treatment of depression and/or anxiety. The patient agreed to retitrate Prozac. Risks/benefits/alternatives were reviewed re: antipsychotics for mood. Discussion included but was not limited to metabolic side effects and need for longer term monitoring. There were no abnormal motor movements at baseline. Fasting glucose and lipid panel ordered for baseline monitoring. For acute symptomatic relief, discussed prn Ativan 0.5 mg for short term use. The patient agreed not to drive or combine with EToh and seems low risk for misuse and diversion. She was made aware that focus of treatment is stabilizing mood and anxiety, stimulant will not be restarted during hospital stay. Inventory Assets Strengths: help seeking, verbal Needs: improve coping, resume therapy Suicide Risk Level Suicide Risk Level: High-Moderate (q15 min suicide checks) Risk Factors Assessment : Yes Do You Have Access To A Gun?: Yes (reports has many guns, unsecured) Mental Health Diagnoses: Yes Substance Use Disorders: No Previous Attempt: No Family History of Suicide: No Previous Psychiatric Hospitalization: Yes (as a teen) Protective Factors Assessment : Yes Responsible for Young Children: Yes Employed: No Stable Relationships: Yes Supportive Family: Yes Psychiatric History Identifying Data MAYRA CALIXTO is a 27-year-old F who currently lives in [facility] of treatment for ADHD and anxiety as a teen under the direction of Dr. Brown at [facility], and was admitted on 08/02/23 12:19 on a 201 voluntary commitment for inability to function, hopeless SI. Chief Complaint "This happened a few months after my last ". History of Present Illness Patient is 5 months post . She has not been breast feeding. She confirmed her history as generally outlined in the ED CM note from yesterday: Pt is 5 months post . She reports that 5 days ago, , she was driving and started to experience a severe panic attack. She reports feeling SOB, nauseous, like she wanted to jump out of her skin, her thoughts were racing, she was shaking and she was unable to continue driving. She reports that she has been in that same state of severe panic since that time. She has not slept since , she is unable to care for her children, she is not eating and hasnt been drinking. She reports that she paces around the house. She cant make her mind slow down and she doesnt know what to do. She denies SI but states at the height of this panic there have been a couple of times that I have had thoughts of taking all of my medications just to make it stop and if it killed me at least the panic would be over. She reports that she does not feel safe because of these thoughts. She is afraid of what she might impulsively do when the panic is at its worst. She is afraid to be alone. She denies thoughts of hurting her children. Pts mother is with her in the ER (mom is a cook restaurant at [employer]) and she is concerned about patients safety. Pts mom and have been caring for the children but they both work aircraft time clerk and cannot be with patient and/or the children around the clock. Pt experienced similar post anxiety after the of her first child 5 years ago. At that time she started seeing Becki Gonsalez at [facility]. She is prescribed Lamictal, Prozac and Hydroxizine. She reports that Hydroxizine is her prn medication for panic attacks but it is not helping at all. She reports that she was taking Seroquel and Prozac but she stopped these medications when the baby was born 5 months ago because they made her sleep too soundly and she could not wake up with the baby. She saw Becki Gonsalez on Wednesday (3 days ago) and she started her Prozac again and added Lamictal (to replace Seroquel). She called Becki this morning and told her that she is no better and had a very bad weeken d. Becki told her to come to the ER. Pt has no hx of SA or inpatient psychiatric treatment. Pt and her mother both believe she needs inpatient treatment due to her safety, inability to care for her children, and her inability to sleep. Last pm she received 2 doses of Vistaril without benefit and desires to resume Seroquel. She was admittedly hesitant to restart medication, in part as she knows that Seroquel and Prozac are effective but "couldn't get up" at night with Seroquel to attend to baby. She admits she misrepresented her medication compliance to her outpatient provider at [facility] as she didn't want to be discharged from services. Although it was previously stated in ED that she had resumed Lamictal, she denied taking lamictal for some time. She did take Adderall 10 mg daily for about 1 month (last rx per pdmp 07/17) but was encouraged not to take stimulant without mood medication. She denies a history of manic episodes and stated that her bipolar dx is mainly based on mood dysregulation vs. episodic, though clearly worse post . Past Psychiatric History Current Psychiatric Diagnosis: depression/anxiety Outpatient Services: [facility], no therapy Previous Psych Admissions: [facility] "maybe age 14" Do You Have Access To A Gun?: Yes (reports has many guns, unsecured) History of Previous Suicide Attempt: No Past Medication Trials: Surescripts notes Prozac, Lamictal, Adderall, Vyvanse, Seroquel, propranolol, sertraline, lurasidone. Allergies Allergy/AdvReac Type Severity Reaction Status Date / Time cefixime [From Suprax] Allergy Intermediate Rash Verified 02/22/23 11:10 Cephalosporins Allergy Intermediate rash Verified 02/22/23 11:10 latex Allergy Mild ITCHY Verified 02/22/23 11:10 Macrolide Antibiotics Allergy Unknown UNK Verified 02/22/23 11:10 Home Medications Medication Instructions Recorded Confirmed Type fluoxetine 10 mg capsule See Rx Instructions .Route .COMPLEX 08/02/23 08/02/23 History hydroxyzine HCl 25 mg tablet See Rx Instructions .Route .COMPLEX 08/02/23 08/02/23 History lamotrigine 25 mg tablet See Rx Instructions .Route .COMPLEX 08/02/23 08/02/23 History Family History Family History of: Doesn't Know Family Mental Health History Comment: Reports dad is a "functioning alcoholic," paternal uncle from alcoholism/"depression" (was unsure if he completed suicide), mom with anxiety Alcohol History Hx of Alcohol Use Over the Past 12 Months: No Smoking Use Have You Smoked or Used Tobacco Products in the Last 30 Days: No tobacco type: cigarettes Smoking Status: Never smoker Substance History Hx of Prescription Med Misuse Over the Past 12 Months: No Hx of Over the Counter Med Misuse Over the Past 12 Months: No Hx of Inhalent Misuse Over the Past 12 Months: No Hx of Organic Substance Use Over the Past 12 Months: No Hx of Illegal Substances/Street Drug Use Over Past 12 Months: No Problems as a Result of Past Substance Use: None Identified Personal History Living Arrangements: Home Highest Grade Completed: Some College 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) Marital Status: Number Of Children: 2 Beliefs That Will Affect Care: None Hx Legal Problems: No Hx Traumatic Life Events: No Patient History Medical History (spontaneous vaginal delivery) Supervision of normal intrauterine in multigravida Oral contraceptive pill surveillance Rectal bleeding Gallstones Depression Panic disorder CLAUSTROPHOBIA Bipolar 1 disorder GERD (gastroesophageal reflux disease) UNDER CONTROL Anxiety Kidney stones PASSED ON OWN Migraine Surgical History History of breast biopsy LEFT History of myringotomy History of colonoscopy History of cystoscopy History of endoscopy Family History Grandmother (Maternal) Breast cancer Grandfather (Paternal) Colorectal cancer Other Cancer Denies family history of Ovarian cancer Social History Smoking Status: Never smoker Tobacco Type: Cigarettes Cigarettes Per Day: 5 cigs per week; Second Hand Exposure: No; Do You Dip or Chew Tobacco: No; Hx Alcohol Use: No Hx Substance Use: No Preferred Language: Tunisian Communication Ability: Effective Visual Impairment: No Limitations Hearing Ability: Normal Transit Specialist Required: No Beliefs That Will Affect Care: None marital status: marital status details: Hussain (28) [phone] Current Living Situation: Spouse Current Living Situation Comment: lives with spouse and son current occupational status: employed current occupation: own business, in home daycare Feels Safe at Home: Yes Gender Identity: Female Assistive Devices: Contacts Review of Systems Review of Systems: All systems reviewed & are unremarkable except as noted in HPI & below Physical Exam Psychiatric: Orientation: alert and oriented x 3 Apperance: appropriately dressed and appropriately groomed Eye Contact: good eye contact Motor Behavior: no abnormal motor movements Speech: normal rate/rhythm/volume of speech Affect: + depressed affect Mood: + depressed mood and + anxious mood Thought Process: goal directed thought process Thought Content: reality based without delusions Suicidal Thoughts: denies suicidal thoughts (but very overwhelmed, in context of panic feels dont want to live) Homicidal Thoughts: denies homicidal thoughts Hallucinations: no auditory halluci nations and no visual hallucinations Cognition: attention grossly intact and language grossly intact Estimated Intelligence: consistent with education level Insight: + limited insight Judgment: + limited judgement Vital Signs (Past 24 Hours): Last Vital Signs Temp 36.1 C L 08/03/23 06:00 Pulse 97 H 08/03/23 06:18 Resp 16 08/03/23 06:00 BP 107/72 08/03/23 06:18 Pulse Ox 98 08/02/23 14:19 O2 Del Method Room Air 08/02/23 14:19 Exam Statement: A physical exam was performed in the ED by Dr. Iqbal for the purposes of medical clearance. I accept that physical as correct and adequate for the purposes of the inpatient physical exam. Results & Data ([facility]) Laboratory Results Laboratory Results - last 24 hr 08/02/23 08/02/23 08/02/23 09:55 10:24 10:27 Sodium 138 Potassium 3.8 Chloride 102 Carbon Dioxide 27 Anion Gap 9 BUN 9 Creatinine 0.96 Est Cr Clr Drug Dosing 77.0 Est GFR ( Amer) 93.9 Est GFR (Non-Af Amer) 81.1 BUN/Creatinine Ratio 9.4 L Glucose 99 Calcium 9.6 Total Bilirubin 0.9 AST 16 ALT 17 Alkaline Phosphatase 112 H Total Protein 8.4 H Albumin 4.7 Globulin 3.7 Albumin/Globulin Ratio 1.3 TSH 1.328 HCG, Qual Negative Urine Opiates Screen Neg Ur Methadone, Qual Neg Urine Barbiturates Neg Ur Phencyclidine (PCP) Neg U Amphetamin/Meth Scrn Neg MDMA (Ecstasy) Screen Neg U Benzodiazepines Scrn Neg Ur Cocaine Metabolite Neg U Marijuana (THC) Screen Neg Ethyl Alcohol mg/dL < 10.0 SARS-CoV-2, RNA, NAAT NEGATIVE Current Inpatient Medications Current Inpatient Medications: Current Inpatient Medications Acetaminophen (Acetaminophen 325 Mg Tab) 650 mg PO Q4H PRN PRN Reason: Headache or Minor Fever Stop: 09/01/23 12:17 Last Admin: 08/03/23 00:49 Dose: 650 mg Al Hydrox/Mg Hydrox/Simethicone (Aluminum/Magnesium Susp 30 Ml Udc) 30 ml PO Q4H PRN PRN Reason: GI Upset Stop: 09/01/23 12:17 Bismuth Subsalicylate (Bismuth Subsalicylate Liqd 236 Ml) 15 ml PO PRN PRN PRN Reason: Loose Stool Stop: 09/01/23 12:17 Fluoxetine HCl (Fluoxetine Hcl 20 Mg Cap) 20 mg PO HS SEPIDEH Stop: 09/02/23 21:59 Lorazepam (Lorazepam 0.5 Mg Tab) 0.5 mg PO Q4 PRN PRN Reason: Anxiety Stop: 09/02/23 09:18 Magnesium Hydroxide (Magnesium Hydroxide Susp 30 Ml Udc) 30 ml PO DAILY PRN PRN Reason: Constipation Stop: 09/01/23 12:17 Quetiapine Fumarate (Quetiapine Fumarate 25 Mg Tablet) 25 mg PO HS SEPIDEH Stop: 09/02/23 21:59 Quetiapine Fumarate (Quetiapine Fumarate 25 Mg Tablet) 25 mg PO HS PRN PRN Reason: insomnia Stop: 09/02/23 09:20 Sodium Chloride (Sodium Chloride 0.65% Na Soln 45 Ml ([place])) 1 - 2 sprays NA PRN PRN PRN Reason: Nasal Dryness/Congestion Stop: 09/01/23 12:17
[2023-08-03] MEDS: LORazepam 0.5 MG TAB PO PRN (13:37)
[2023-08-03] MEDS: FLUoxetine HCL 20 MG CAP PO SCH (21:11)
[2023-08-03] MEDS ORDERED: QUEtiapine FUMARATE 25 MG TABLET PO SCH (22:00)
[2023-08-04 09:05] LABS: Chol HDL Ratio 5.3 (0-5)
[2023-08-04] MEDS: LORazepam 0.5 MG TAB PO PRN (10:00)
--- NOTE | 2023-08-04 10:14 | Psychiatric Progress Note ---
Date of Service August 04, 2023 Impression / Recommendations Impression 27 yo female with exacerbation of mood disorder and panic following several months of medication non compliance (took Prozac and Seroquel up to delivery). Overall, I spent a total of 37 minutes with this case, including review of chart, direct evaluation of the patient, counseling the patient, ordering medication, treatment team, coordination with nursing, and documentation. (1) Bipolar 2 disorder: (2) Panic disorder: Plan 08/04/23: Patient agreeing to standing Ativan 0.5 mg BID meals for short term use (?2 weeks), desires to titrate Seroquel to previously effective dose of 50 mg though hx of some am sedation. 08/03/23: The patient was admitted to the [facility] ([facility] mental health unit) on q15 min checks (behavioral with suicide precautions) for safety. The patient will participate in group, recreational, and milieu therapies and will be offered additional individual and family sessions as clinically appropriate. Risks/benefits/alternatives reviewed re: antidepressants for the treatment of depression and/or anxiety. The patient agreed to retitrate Prozac. Risks/benefits/alternatives were reviewed re: antipsychotics for mood. Dis cussion included but was not limited to metabolic side effects and need for longer term monitoring. There were no abnormal motor movements at baseline. Fasting glucose and lipid panel ordered for baseline monitoring. For acute symptomatic relief, discussed prn Ativan 0.5 mg for short term use. The patient agreed not to drive or combine with EToh and seems low risk for misuse and diversion. She was made aware that focus of treatment is stabilizing mood and anxiety, stimulant will not be restarted during hospital stay. Inventory Assets Strengths: help seeking, verbal Needs: improve coping, resume therapy Suicide Risk Level Suicide Risk Level: High-Moderate (q15 min suicide checks) Risk Factors Assessment : Yes Do You Have Access To A Gun?: Yes (reports has many guns, unsecured) Mental Health Diagnoses: Yes Substance Use Disorders: No Previous Attempt: No Family History of Suicide: No Previous Psychiatric Hospitalization: Yes (as a teen) Protective Factors Assessment : Yes Responsible for Young Children: Yes Employed: No Stable Relationships: Yes Supportive Family: Yes Interval History Identifying Information MAYRA CALIXTO is a 27-year-old F who currently lives in [facility] of treatment for ADHD and anxiety as a teen under the direction of Dr. Brown at [facility], and was admitted on 08/02/23 12:19 on a 201 voluntary commitment for inability to function, hopeless SI. Chief Complaint "I'm really anxious" Review of Systems Sleep Information Total Hours of Sleep: 8.75 Sleep Comments: Pt requested PRN Vistaril for sleep.Awake for PRN APAP for c/o HAYNES Meal Information Percent Meal Consumed - Breakfast: 20 Percent Meal Consumed - Lunch: 100 Percent Meal Consumed - Dinner: 100 Subjective Subjective Patient was seen & assessed and interval progress reviewed with treatment team. Patient dealing effectively with intrussive peer. Sleep improved. Tolerating Ativan prn with benefit. Patient unsure when to "allow" her self to take prn. Missing children but doesn't feel safe for discharge. Physical Exam Psychiatric Orientation: alert and oriented x 3 Apperance: appropriately dressed and appropriately groomed Eye Contact: good eye contact Motor Behavior: no abnormal motor movements Speech: normal rate/rhythm/volume of speech Affect: + depressed affect Mood: + depressed mood and + anxious mood Thought Process: goal directed thought process Thought Content: reality based without delusions Suicidal Thoughts: denies suicidal thoughts (but very overwhelmed, in context of panic feels dont want to live) Homicidal Thoughts: denies homicidal thoughts Hallucinations: no auditory hallucinations and no visual hallucinations Cognition: attention grossly intact and language grossly intact Estimated Intelligence: consistent with education level Insight: + limited insight Judgment: + limited judgement Vital Signs (Past 24 Hours) Last Vital Signs Temp 35.7 C L 08/04/23 06:00 Pulse 97 H 08/04/23 06:08 Resp 16 08/04/23 06:00 BP 96/77 L 08/04/23 06:08 Pulse Ox 98 08/02/23 14:19 O2 Del Method Room Air 08/02/23 14:19 Results & Data (RUST) Laboratory Results Laboratory Results - last 24 hr 08/04/23 08:18 Fasting Glucose 95 Triglycerides 229 H Cholesterol 170 LDL Cholesterol, Calc 92 VLDL Cholesterol, Calc 46 H HDL Cholesterol 32 Cholesterol/HDL Ratio 5.3 H Current Inpatient Medications Current Inpatient Medications: Current Inpatient Medications Acetaminophen (Acetaminophen 325 Mg Tab) 650 mg PO Q4H PRN PRN Reason: Headache or Minor Fever Stop: 09/01/23 12:17 Last Admin: 08/03/23 00:49 Dose: 650 mg Al Hydrox/Mg Hydrox/Simethicone (Aluminum/Magnesium Susp 30 Ml Udc) 30 ml PO Q4H PRN PRN Reason: GI Upset Stop: 09/01/23 12:17 Bismuth Subsalicylate (Bismuth Subsalicylate Liqd 236 Ml) 15 ml PO PRN PRN PRN Reason: Loose Stool Stop: 09/01/23 12:17 Fluoxetine HCl (Fluoxetine Hcl 20 Mg Cap) 20 mg PO HS SEPIDEH Stop: 09/02/23 21:59 Last Admin: 08/03/23 21:11 Dose: 20 mg Lorazepam (Lorazepam 0.5 Mg Tab) 0.5 mg PO Q4 PRN PRN Reason: Anxiety Stop: 09/02/23 09:18 Last Admin: 08/04/23 10:00 Dose: 0.5 mg Lorazepam (Lorazepam 0.5 Mg Tab) 0.5 mg PO BIDM SEPIDEH Stop: 09/03/23 17:44 Magnesium Hydroxide (Magnesium Hydroxide Susp 30 Ml Udc) 30 ml PO DAILY PRN PRN Reason: Constipation Stop: 09/01/23 12:17 Quetiapine Fumarate (Quetiapine Fumarate 25 Mg Tablet) 25 mg PO HS SEPIDEH Stop: 09/02/23 21:59 Last Admin: 08/03/23 21:11 Dose: 25 mg Quetiapine Fumarate (Quetiapine Fumarate 25 Mg Tablet) 25 mg PO HS PRN PRN Reason: insomnia Stop: 09/02/23 09:20 Sodium Chloride (Sodium Chloride 0.65% Na Soln 45 Ml ([place])) 1 - 2 sprays NA PRN PRN PRN Reason: Nasal Dryness/Congestion Stop: 09/01/23 12:17 Mental Health & Subst Abuse Tx Therapist Name of Therapist: None Rn Licensed Practical Name of Rn Licensed Practical: None Post Discharge Appointments Primary Care Physician Name Of Family Doctor/PCP: NARCISA Cherry
[2023-08-04] MEDS: LORazepam 0.5 MG TAB PO SCH (16:37)
[2023-08-04] MEDS: FLUoxetine HCL 20 MG CAP PO SCH (21:36)
[2023-08-04] MEDS ORDERED: QUEtiapine FUMARATE 25 MG TABLET PO SCH (22:00)
[2023-08-05] MEDS: LORazepam 0.5 MG TAB PO SCH (08:43)
[2023-08-05] MEDS ORDERED: DESTROY THIS MEDICATION ONE (12:15)
--- NOTE | 2023-08-05 18:21 | Discharge Summary ---
Date of Service August 05, 2023 History of Present Illness Patient is 5 months post . She has not been breast feeding. She confirmed her history as generally outlined in the ED CM note from yesterday: Pt is 5 months post . She reports that 5 days ago, , she was driving and started to experience a severe panic attack. She reports feeling SOB, nauseous, like she wanted to jump out of her skin, her thoughts were racing, she was shaking and she was unable to continue driving. She reports that she has been in that same state of severe panic since that time. She has not slept since , she is unable to care for her children, she is not eating and hasnt been drinking. She reports that she paces around the house. She cant make her mind slow down and she doesnt know what to do. She denies SI but states at the height of this panic there have been a couple of times that I have had thoughts of taking all of my medications just to make it stop and if it killed me at least the panic would be over. She reports that she does not feel safe because of these thoughts. She is afraid of what she might impulsively do when the panic is at its worst. She is afraid to be alone. She denies thoughts of hurting her children. Pts mother is with her in the ER (mom is a ph lebotomist at [employer]) and she is concerned about patients safety. Pts mom and have been caring for the children but they both work full time babysitter and cannot be with patient and/or the children around the clock. Pt experienced similar post anxiety after the of her first child 5 years ago. At that time she started seeing Becki Gonsalez at [facility]. She is prescribed Lamictal, Prozac and Hydroxizine. She reports that Hydroxizine is her prn medication for panic attacks but it is not helping at all. She reports that she was taking Seroquel and Prozac but she stopped these medications when the baby was born 5 months ago because they made her sleep too soundly and she could not wake up with the baby. She saw Becki Gonsalez on Wednesday (3 days ago) and she started her Prozac again and added Lamictal (to replace Seroquel). She called Becki this morning and told her that she is no better and had a very bad weekend. Becki told her to come to the ER. Pt has no hx of SA or inpatient psychiatric treatment. Pt and her mother both believe she needs inpatient treatment due to her safety, inability to care for her children, and her inability to sleep. Last pm she received 2 doses of Vistaril without benefit and desires to resume Seroquel. She was admittedly hesitant to restart medication, in part as she knows that Seroquel and Prozac are effective but "couldn't get up" at night with Seroquel to attend to baby. She admits she misrepresented her medication compliance to her outpatient provider at [place] as she didn't want to be discharged from services. Although it was previously stated in ED that she had resumed Lamictal, she denied taking lamictal for some time. She did take Adderall 10 mg daily for about 1 month (last rx per pdmp 07/17) but was encouraged not to take stimulant without mood medication. She denies a history of manic episodes and stated that her bipolar dx is mainly based on mood dysregulation vs. episodic, though clearly worse post . Physical Exam Psychiatric See admission H&P and DOD assessment. Vital Signs (Past 24 Hours) Last Vital Signs Temp 36.8 C 08/05/23 12:09 Pulse 93 H 08/05/23 12:09 Resp 16 08/05/23 12:09 BP 109/71 08/05/23 12:09 Pulse Ox 97 08/05/23 12:09 O2 Del Method Room Air 08/05/23 06:37 Principal Diagnosis bipolar II disorder Psychiatric Data See daily stay summary. In short, safety was maintained and the patient was cooperative with care. Medication changes included restarting Prozac and Seroquel and they tolerated this well. Risks/benefits/alternatives were reviewed re: these medications and she voiced good understanding of the rationale for metabolic labs and need for follow up for ongoing monitoring for this and other side effects. She did benefit from prn Ativan and contracted not to drive, operate machinery, or combine with alcohol or other sedating substances. Reviewed that standing dose would likely be tapered to prn use per outpatient provider as Prozac more effective. She plans to discuss resuming oral contraceptives with her nut former as otherwise has not resume cycles and does not desire to become . She added that she didn't want to "go through this again" and it was discussed that may have had a different course had not stopped meds abruptly at delivery. A family session was held and safety plan was completed prior to discharge. Day of Discharge Assessment Today the patient voices readiness for discharge. They note improvement in mood and deny thoughts to harm self or others. Thoughts remain organized and they are improved from admission. There is no evidence of psychosis. They agree to take mediations as prescribed and keep follow-up appointments. They are stable for discharge to outpatient level of care. Transition of Care Transition Of Care Record: was reviewed with the patient Advance Directives Advance Directives Information Provided: Yes Advance Directives: No Mental Health Advance Directive: No Advance Directives on File: No Living Will: No Power of Sofa Cover Inspector: No Advance Directives Reason:: Declines as Mental Health Visit. Suicide Risk Level Suicide Risk Level Comments: Suicide risk at discharge is deemed low as the patient is no longer requiring 24-hr monitoring, has a safety plan, and is free of suicidal ideation at discharge. Risk Factors Assessment : Yes Do You Have Access To A Gun?: No ( changed code to safe so patient unaware/secure) Mental Health Diagnoses: Yes Substance Use Disorders: No Previous Attempt: No Family History of Suicide: No Previous Psychiatric Hospitalization: Yes (as a teen) Protective Factors Assessment : Yes Responsible for Young Children: Yes Employed: No Stable Relationships: Yes Supportive Family: Yes Tobacco Cessation at Discharge Tobacco Cessation Medication Prescribed at Discharge: Not Applicable/Non-Smoker Total Time Total Time Spent: Greater Than 30 Minutes (35 min) Total Time Includes: Examination of the patient, Discharge Planning and Medication Reconciliation Discharge Data Lab Results 08/02/23 08/02/23 08/02/23 09:55 10:24 10:27 WBC 10.49 RBC 4.79 Hgb 13.7 Hct 41.6 MCV 86.8 MCH 28.6 MCHC 32.9 RDW Std Deviation 42.6 RDW Coeff of Dionte 13.5 Plt Count 412 H MPV 9.0 L Immature Gran % (Auto) 0.4 Neut % (Auto) 85.1 Lymph % (Auto) 10.4 [place] % (Auto) 3.8 Eos % (Auto) 0.1 Baso % (Auto) 0.2 Neut # (Auto) 8.93 H Lymph # (Auto) 1.09 L [place] # (Auto) 0.40 Eos # (Auto) 0.01 Baso # (Auto) 0.02 Immature Gran # (Auto) 0.04 Sodium 138 Potassium 3.8 Chloride 102 Carbon Dioxide 27 Anion Gap 9 BUN 9 Creatinine 0.96 Est Cr Clr Drug Dosing 77.0 Est GFR ( Amer) 93.9 Est GFR (Non-Af Amer) 81.1 BUN/Creatinine Ratio 9.4 L Glucose 99 Fasting Glucose Calcium 9.6 Total Bilirubin 0.9 AST 16 ALT 17 Alkaline Phosphatase 112 H Total Protein 8.4 H Albumin 4.7 Globulin 3.7 Albumin/Globulin Ratio 1.3 Triglycerides Cholesterol LDL Cholesterol, Calc VLDL Cholesterol, Calc HDL Cholesterol Cholesterol/HDL Ratio TSH 1.328 HCG, Qual Negative Urine Color Yellow Urine Appearance Clear Urine pH 7.0 Ur Specific God[place] 1.007 Urine Protein Negative Urine Glucose (UA) Negative Urine Ketones Negative Urine Blood Negative Urine Nitrite Negative Urine Bilirubin Negative Urine Urobilinogen Negative Ur Leukocyte Esterase 1+ H Urine WBC (Auto) 1-5 Urine RBC (Auto) 0-4 U Hyaline Cast (Auto) 1-5 U Epithel Cells (Auto) 20-30 H Urine Bacteria (Auto) Negative Salicylates < 3.0 L Urine Opiates Screen Neg Ur Methadone, Qual Neg Acetaminophen < 3 L Urine Barbiturates Neg Ur Phencyclidine (PCP) Neg U Amphetamin/Meth Scrn Neg MDMA (Ecstasy) Screen Neg U Benzodiazepines Scrn Neg Ur Cocaine Metabolite Neg U Marijuana (THC) Screen Neg Ethyl Alcohol mg/dL < 10.0 SARS-CoV-2, RNA, NAAT NEGATIVE 08/04/23 08:18 WBC RBC Hgb Hct MCV MCH MCHC RDW Std Deviation RDW Coeff of Dionte Plt Count MPV Immature Gran % (Auto) Neut % (Auto) Lymph % (Auto) [place] % (Auto) Eos % (Auto) Baso % (Auto) Neut # (Auto) Lymph # (Auto) [place] # (Auto) Eos # (Auto) Baso # (Auto) Immature Gran # (Auto) Sodium Potassium Chloride Carbon Dioxide Anion Gap BUN Creatinine Est Cr Clr Drug Dosing Est GFR ( Amer) Est GFR (Non-Af Amer) BUN/Creatinine Ratio Glucose Fasting Glucose 95 Calcium Total Bilirubin AST ALT Alkaline Phosphatase Total Protein Albumin Globulin Albumin/Globulin Ratio Triglycerides 229 H Cholesterol 170 LDL Cholesterol, Calc 92 VLDL Cholesterol, Calc 46 H HDL Cholesterol 32 Cholesterol/HDL Ratio 5.3 H TSH HCG, Qual Urine Color Urine Appearance Urine pH Ur Specific [place] Urine Protein Urine Glucose (UA) Urine Ketones Urine Blood Urine Nitrite Urine Bilirubin Urine Urobilinogen Ur Leukocyte Esterase Urine WBC (Auto) Urine RBC (Auto) U Hyaline Cast (Auto) U Epithel Cells (Auto) Urine Bacteria (Auto) Salicylates Urine Opiates Screen Ur Methadone, Qual Acetaminophen Urine Barbiturates Ur Phencyclidine (PCP) U Amphetamin/Meth Scrn MDMA (Ecstasy) Screen U Benzodiazepines Scrn Ur Cocaine Metabolite U Marijuana (THC) Screen Ethyl Alcohol mg/dL SARS-CoV-2, RNA, NAAT Hospital Course (1) Bipolar 2 disorder: (2) Panic disorder: Plan 08/04/23: Patient agreeing to standing Ativan 0.5 mg BID meals for short term use (?2 weeks), desires to titrate Seroquel to previously effective dose of 50 mg though hx of some am sedation. 08/03/23: The patient was admitted to the [facility] ([facility] mental health unit) on q15 min checks (behavioral with suicide precautions) for safety. The patient will participate in group, recreational, and milieu therapies and will be offered additional individual and family sessions as clinically appropriate. Risks/benefits/alternatives reviewed re: antidepressants for the treatment of depression and/or anxiety. The patient agreed to retitrate Prozac. Risks/benefits/alternatives were reviewed re: antipsychotics for mood. Discussion included but was not limited to metabolic side effects and need for longer term monitoring. There were no abnormal motor movements at baseline. Fasting glucose and lipid panel ordered for baseline monitoring. For acute symptomatic relief, discussed prn Ativan 0.5 mg for short term use. The patient agreed not to drive or combine with EToh and seems low risk for misuse and diversion. She was made aware that focus of treatment is stabilizing mood and anxiety, stimulant will not be restarted during hospital stay. Mental Health & Subst Abuse Tx Psychiatrist Name of Psychiatrist: Mookie Gonsalez Psychiatrist's Date Of Appointment With Psychiatric Provider: 08/16/2023 Time of Appointment with Psychiatrist: 11:20am Psychiatric Appointment Comment: [address] [place], [place] Psychiatrist Release of Information: Obtained, Reviewed and Signed Therapist Name of Therapist: Lydia López Therapist's Date of Therapist Appointment: 08/10/2023 Time of Therapist Appointment: 1230 Therapy Appointment Comment: Link will be sent to email for telehealth session Therapist Release of Information: Obtained, Reviewed and Signed Rail Operator Name of Rail Operator: . Post Discharge Appointments Primary Care Physician Name Of Family Doctor/PCP: NARCISA Primary Care Time of Appointment with PCP: please follow up as needed Provider Appointment Comment: [address] [facility] [place] Smoking Cessation Counseling Tobacco Cessation Medication Prescribed at Discharge: Not Applicable/Non-Smoker Contact Information Discharge Discharge Address: [facility] [address], [place] [address] Discharge Plan Discharge Items Patient Disposition: Home - Self-Care Reason For Visit: BIPOLAR DISORDER Discharge Diagnosis: bipolar II disorder Condition on Discharge: Good Activity: Resume your previous activity Non-emergency contact: Primary Care Provider, Psychiatrist and Therapist Call non-emergency contact if: you have any medication questions and your symptoms worsen Follow-up/Referrals: Moe Cheatham MD [Primary Care Provider] - Diet: Regular Addtl Attending Provider Instructions: SPECIAL CARE INSTRUCTIONS: 1. Follow through with your scheduled aftercare appointments. If unable to keep an appointment, please call to reschedule. 2. Take your medication only as prescribed. Medication should not be changed or stopped without the approval of your doctor. In the event of worsening symptoms or concerns about side effects, contact your doctor immediately. 3. Utilize new healthy coping skills, anger management skills, and stress management skills learned during your hospitalization. Journal feelings and process them with a support person. Identify stressors or situations that may result in relapse, deterioration or inappropriate behaviors and develop a plan to deal with those issues. 4. If your coping skills are ineffective and you are in crisis, contact your outpatient providers for direction. If unable to reach your providers, please call the [facility] CRISIS LINE AT , go to the [facility] walk-in center at [address], [address], [place], or go to the closest Emergency Room. 5. Avoid alcohol and un-prescribed drugs. 6. You have been provided with the Mental Health Advance Directives Pamphlet for your review. 7. Your condition is stable for discharge to outpatient level of care, but recovery is an ongoing process. Ifthoughts to harm yourself or others return, follow the safety plan developed during your stay. Planning for a safe return home includes securing weapons. Our treatment team recommends weaponsbe removed from the home until your outpatient provider reassesses your progress. In rare cases where the items themselvescannot be removed, guns and ammunitionshould be secured separatelyand keys stored by a reliable personoutside of the home. If you were admitted on an involuntary commitment, the police or other legal authorities may be involved in this process. AFTERCARE APPOINTMENTS: * Please call your insurance company prior to your scheduled appointment to confirm your aftercare providers are covered. Take your insurance information to your appointments. WHO TO CALL AND WHEN: Medical Emergencies: For questions or emergencies related to your hospital stay, please contact the Inpatient Behavioral Health Unit at [phone]. A home health clinician is on-call 08/02 for the Behavioral Health Unit for emergencies At any time you feel your situation is an emergency, you may also call 911 immediately. Pending Studies at Discharge: No Stand-Alone Forms: [facility], Smoking Cessation Medications and DC Order Prescriptions: New lorazepam 0.5 mg Tablet 0.5 mg PO BIDM Qty: 30 0RF Rx Instructions: may take 1 additional tab daily prn panic. fluoxetine 20 mg Capsule 20 mg PO HS Qty: 30 0RF quetiapine 25 mg Tablet 25 mg PO HS Qty: 30 0RF Rx Instructions: may take addition 1 tab po qhs prn insomnia Discontinued fluoxetine 10 mg capsule See Rx Instructions .ROUTE .COMPLEX Rx Instructions: Take one capsule by mouth every evening. lamotrigine 25 mg tablet See Rx Instructions .ROUTE .COMPLEX Rx Instructions: Take one tablet by mouth every morning for 2 weeks, then increase to 2 tablets by mouth every morning. hydroxyzine HCl 25 mg tablet See Rx Instructions .ROUTE .COMPLEX Rx Instructions: Take one tablet by mouth three times daily as needed. Discharge Orders: Discharge Order (Routine); Ordered 08/05/23 Ordered By: Babs Brown Admission Data Admit Date/Time: 08/02/23 12:19 Attending Provider: Babs Brown Admit Provider: Babs Brown Primary Care Provider: Moe Cheatham Other Interventions: Discharge Summary Assessment (RN) Last Done: 08/05/23 12:09 PSY Interdisciplinary Discharge Planning Last Done: 08/05/23 12:10 Coding Level of Care Code 09213 D/C day mgmt > 30 min Diagnoses Bipolar 2 disorder F31.81 Panic disorder F41.0
== END 2023-08-05 12:35 | disposition home or self-care (01) | DRG 885 ==
LOC: ED 09:23 → 3S 12:19 → ED 13:00 → 3S 13:21

== ENCOUNTER 2023-10-28 08:32 | Inpatient (IN) ==
[2023-10-28 09:14] LABS: Basophils # (auto) 0.02 K/uL (0.00-0.20); Basophils % (auto) 0.2 %; Eosinophils # (auto) 0.08 K/uL (0.00-0.50); Eosinophils % (auto) 0.7 %; Hemoglobin 12.7 g/dl (12.0-16.0); Immature Granulocytes # (auto) 0.03 K/uL (0.01-0.20); Immature Granulocytes % (auto) 0.3 %; Lymphocytes # (auto) 1.39 K/uL (1.20-3.40); Lymphocytes % (auto) 12.9 %; Mean Corpuscular Hgb Conc 32.6 g/dL (32.0-36.0); Mean Platelet Volume 8.9 fL (9.4-12.4); Monocytes # (auto) 0.53 K/uL (0.11-0.59); Monocytes % (auto) 4.9 %; Neutrophils # (auto) 8.76 K/uL (1.40-6.50); Platelet Count 411 K/uL (130-400); RDW Coefficient of Variation 13.4 % (11.5-14.5); RDW Standard Deviation 44.1 fL (36.4-46.3); Red Blood Count 4.38 M/uL (4.20-5.40); White Blood Count 10.81 K/ul (4.8-10.8)
--- NOTE | 2023-10-28 09:22 | Emergency Department Note ---
Impression & Plan Anxiety and depression ED Provider Note Provider: Augusto Bonilla MD DATE OF SERVICE: 10/28/2023 CHIEF COMPLAINT: Anxiety HISTORY OF PRESENT ILLNESS: Patient is a 28-year-old female history of bipolar and migraines presenting here with [id number] for evaluation of worsening anxiety issues. Patient states she had issues about 5 years ago after the of her first son and she is now approximately 8 months and experiencing recurrent issues with severe anxiety. States she has palpitations at times. States that she was here in admitted to the psychiatric unit in July as well as recently several weeks ago was briefly at the psychiatric unit at [facility] but did not like it there is a did have a window and was adding to her stress. Reports that she is feels constantly anxious has not been sleeping well. Has been using home medications including Seroquel which minimally helped. Feels that at times things have become so much that she thinks about suicide but does not have any specific plan at this point. Did reach out to her long-term psychiatrist office at [facility] and they recommended she come here. States it does not feel like she is getting better with things and just cannot function like this. Has had workup for some migraines and visual floaters including with ophthalmology and MRI and they believe these are related to migraine. She reports she does not feel like "she can take care of herself "at this time and does not know when she last had a shower PAST MEDICAL HISTORY: As noted above MEDICATIONS: Reviewed home medication list SOCIAL HISTORY: At home with children including 8 months PHYSICAL EXAM: GENERAL: alert and oriented in no acute distress on stretcher, [id number] at bedside Head: normocephalic and atraumatic EYES: No injection, discharge or icterus. EOMI. NECK: Trachea midline. ENT: Mucous membranes pink and moist. LUNGS: Airway patent. No retractions or tachypnea HEART: Regular rate and rhythm. SKIN: Acyanotic, warm, dry, without rashes EXTREMITIES: Without swelling, tenderness or deformity NEUROLOGICAL: No focal deficits moving all extremity. No aphasia. No facial droop or slurred speech. Ambulatory. Psych: Endorses anxiety with some suicidal thoughts without plan. Denies hallucinations or HI although a few visual floaters related to what is believed to be migraine reported. Patient's laboratory studies reviewed. Differential includes Mood disorder, infection, hypoglycemia, electrolyte abnormalities, cardiac sources, intracerebral event, toxicologic, trauma, neurologic, as well as other pathologies. IMPRESSION/MEDICAL DECISION MAKING: Reviewed prior medical record including MRI from several weeks ago that was reassuring. By her report has seen eye doctor recently with reassurance from a vision standpoint. Does not seem to have any focal neurological deficits. No trauma history and vitals are reassuring. significant anxiety and stress seem to be at play. Basic blood work obtained here. Had a poor experience of coming to the did improve after prior hospitalization several months ago here. Her and [id number] expressed frustration with lack of improvement. Seen with manager rn case here. Basic blood work obtained. No significant abnormalities on CBC or CMP here. Negative negative aspirin and Tylenol toxicology studies. Negative test at this time. No urinary symptoms reported currently. Case management assessed. Discussed inpatient referrals. Patient was evaluated by [facility] and excepted there for further inpatient treatment on a voluntary basis. 201 completed. DIAGNOSIS: Anxiety and depression DISPOSITION: Further care on [facility] by psychiatry Patient was agreeable with this plan. Past Med/Surg History Medical History Suicidal ideation (spontaneous vaginal delivery) Supervision of normal intrauterine in multigravida Oral contraceptive pill surveillance Rectal bleeding Gallstones Depression Panic disorder CLAUSTROPHOBIA Bipolar 1 disorder GERD (gastroesophageal reflux disease) UNDER CONTROL Anxiety Kidney stones PASSED ON OWN Migraine Surgical History History of breast biopsy LEFT History of myringotomy History of colonoscopy History of cystoscopy History of endoscopy Family History Grandmother (Maternal) Breast cancer Grandfather (Paternal) Colorectal cancer Other Cancer Denies family history of Ovarian cancer Social History Smoking Status: Never smoker Tobacco Type: Cigarettes Cigarettes Per Day: 5 cigs per week; Second Hand Exposure: No; Do You Dip or Chew Tobacco: No; Hx Alcohol Use: No Hx Substance Use: No Preferred Language: Stateless Communication Ability: Effective Visual Impairment: No Limitations Hearing Ability: Normal Screen Tender Required: No Beliefs That Will Affect Care: None marital status: marital status details: Hussain (28) [phone] Current Living Situation: Spouse Current Living Situation Comment: lives with spouse and son current occupational status: employed current occupation: own business, in home daycare Feels Safe at Home: Yes Diet: regular caffeine: Yes Physical Activity Frequency: Daily Seatbelt Use: always Sunscreen Use: Yes Gender Identity: Female Assistive Devices: Contacts Allergies Allergies Allergy/AdvReac Type Severity Reaction Status Date / Time cefixime [From Suprax] Allergy Intermediate Rash Verified 10/26/23 15:01 Cephalosporins Allergy Intermediate rash Verified 10/26/23 15:01 latex Allergy Mild ITCHY Verified 10/26/23 15:01 Macrolide Antibiotics Allergy Unknown UNK Verified 10/26/23 15:01 Home Meds Home Medications Medication Instructions Recorded Confirmed quetiapine 50 mg tablet (Seroquel) 50 mg PO DAILY 09/22/23 10/28/23 fluoxetine 20 mg capsule 40 mg PO HS 10/25/23 10/28/23 Previous Rx's Medication Instructions Recorded lorazepam 0.5 mg tablet 0.5 mg PO BIDM #30 tabs 08/05/23 norethindrone acetate 1.5 1 tab PO DAILY #21 tabs 08/25/23 mg-ethinyl estradiol 30 mcg tablet (Junel) Results & Data (ED) Vital Signs Vital Signs - 24 hr 10/28/23 08:37 10/28/23 11:43 Temperature 36.4 C L Temperature Source Temporal Artery Scan Pulse Rate 96 H Pulse Rate [Right Finger] 92 H Pulse Rhythm Regular Pulse Strength Normal Respiratory Rate 18 17 Respiratory Effort / Characteristics Non-Labored Spontaneous Non-Labored Respiratory Depth Normal Normal Respiratory Pattern Regular Blood Pressure 114/80 Blood Pressure [Right Arm] 104/72 Blood Pressure Mean 91 Blood Pressure Mean [Right Arm] 82 Blood Pressure Position Sitting Pulse Oximetry 97 98 Oxygen Delivery Method Room Air Room Air Sepsis Recent Fever Within 48 Hours No Sepsis New/Unexplained Change in Mental Status No Sepsis Action Taken by Nursing No Action Required Laboratory Data 10/28/23 08:57 10/28/23 08:57 Lab Results 10/28/23 Range/Units 08:57 WBC 10.81 H (4.8-10.8) K/ul RBC 4.38 (4.20-5.40) M/uL Hgb 12.7 (12.0-16.0) g/dl Hct 39.0 (37.0-47.0) % MCV 89.0 (80.0-100.0) fL MCH 29.0 (25.0-34.0) pg MCHC 32.6 (32.0-36.0) g/dL RDW Std Deviation 44.1 (36.4-46.3) fL RDW Coeff of Dionte 13.4 (11.5-14.5) % Plt Count 411 H (130-400) K/uL MPV 8.9 L (9.4-12.4) fL Immature Gran % (Auto) 0.3 % Neut % (Auto) 81.0 % Lymph % (Auto) 12.9 % [place] % (Auto) 4.9 % Eos % (Auto) 0.7 % Baso % (Auto) 0.2 % Neut # (Auto) 8.76 H (1.40-6.50) K/uL Lymph # (Auto) 1.39 (1.20-3.40) K/uL [place] # (Auto) 0.53 (0.11-0.59) K/uL Eos # (Auto) 0.08 (0.00-0.50) K/uL Baso # (Auto) 0.02 (0.00-0.20) K/uL Immature Gran # (Auto) 0.03 (0.01-0.20) K/uL Sodium 135 L (136-145) mmol/L Potassium 3.9 (3.5-5.1) mmol/L Chloride 105 (98-107) mmol/L Carbon Dioxide 23 (21-32) mmol/L Anion Gap 7 (3-11) BUN 9 (6-23) mg/dl Creatinine 0.89 (0.6-1.2) mg/dl Est Cr Clr Drug Dosing 82.4 ml/min Est GFR ( Amer) 102.2 ml/min Est GFR (Non-Af Amer) 88.2 ml/min BUN/Creatinine Ratio 10.1 (10-20) Glucose 99 (70-99(Fasting)) mg/dl Calcium 9.0 (8.6-10.3) mg/dl Total Bilirubin 0.9 (0.2-1.0) mg/dl AST 35 (13-39) U/L ALT 48 (7-52) U/L Alkaline Phosphatase 76 (34-104) U/L Total Protein 7.7 (6.0-8.3) gm/dl Albumin 4.3 (3.4-5.0) gm/dl Globulin 3.4 (2.5-4.0) gm/dl Albumin/Globulin Ratio 1.3 (0.9-2) TSH 1.523 (0.300-4.500) uIu/ml HCG, Qual Negative (Negative) Urine Color Yellow Urine Appearance Clear (Clear) Urine pH 7.0 (4.5-7.5) Ur Specific [place] 1.016 (1.000-1.030) Urine Protein Trace H (Negative) Urine Glucose (UA) Negative (Negative) Urine Ketones Trace H (Negative) Urine Blood 3+ H (Negative) Urine Nitrite Negative (Negative) Urine Bilirubin Negative (Negative) Urine Urobilinogen Negative (Negative) Ur Leukocyte Esterase 1+ H (Negative) Urine WBC (Auto) 11-20 H (0-5) /hpf Urine RBC (Auto) >20 H (0-2) /hpf U Hyaline Cast (Auto) 0-2 (0-2) /lpf U Epithel Cells (Auto) 3-5 H (0-2) /hpf Urine Bacteria (Auto) None Seen (None Seen) Salicylates < 3.0 L (3.0-30) mg/dl Urine Opiates Screen Neg (Neg) Ur Methadone, Qual Neg (Neg) Acetaminophen < 3 L (10-30) ug/ml Urine Barbiturates Neg (Neg) Ur Phencyclidine (PCP) Neg (Neg) U Amphetamin/Meth Scrn Neg (Neg) MDMA (Ecstasy) Screen Neg (Neg) U Benzodiazepines Scrn Neg (Neg) Ur Cocaine Metabolite Neg (Neg) U Marijuana (THC) Screen Neg (Neg) Ethyl Alcohol mg/dL < 10.0 (<10.0) mg/dl SARS-CoV-2, RNA, NAAT NEGATIVE (NEGATIVE) Administered Medications Discontinued Medications Lorazepam (Lorazepam 1 Mg Tab) 1 mg PO NOW STA Stop: 10/28/23 09:33 Last Admin: 10/28/23 09:36 Dose: 1 mg Documented By: MMN Discharge Plan Visit Data Chief Complaint: Mental Health Evaluation Stated Complaint: MENTAL HEALTH EVAL. ED Provider: Augusto Bonilla Discharge Problem: Anxiety and depression Patient Disposition: Admitted As Inpatient Forms Stand Alone Forms: My [facility], Suicide Prevention Resources Prescriptions Prescriptions: No Action norethindrone ac-eth estradiol [Junel ()] 1.5-30 mg-mcg tablet 1 tab PO DAILY Qty: 21 11RF Rx Instructions: Take one pill everyday at the same time quetiapine [Seroquel] 50 mg tablet 50 mg PO DAILY fluoxetine 20 mg capsule 40 mg PO HS lorazepam 0.5 mg Tablet 0.5 mg PO BIDM Qty: 30 0RF Rx Instructions: may take 1 additional tab daily prn panic. Referrals Referrals: Moe Cheatham MD [Primary Care Provider] -
[2023-10-28 09:31] LABS: Appearance Urine Clear (Clear); Bacteria Urine Automated None Seen (None Seen); Bilirubin Urine Negative (Negative); Blood Urine 3+ (Negative); Cast Urine Automated 0-2 /lpf (0-2); Color Urine Yellow; Glucose Urine UA Negative (Negative); Ketones Urine Trace (Negative); Leukocyte Esterase Urine 1+ (Negative); Nitrite Urine Negative (Negative); Protein Urine Trace (Negative); RBC Urine Automated >20 /hpf (0-2); Specific Gravity Urine 1.016 (1.000-1.030); Urobilinogen Urine Negative (Negative)
[2023-10-28 09:32] LABS: Pregnancy Test, Serum Negative (Negative)
[2023-10-28] MEDS: LORazepam 1 MG TAB PO STA (09:36)
[2023-10-28 09:37] LABS: Albumin Globulin Ratio 1.3 (0.9-2); Albumin Level 4.3 gm/dl (3.4-5.0); BUN Creatinine Ratio 10.1 (10-20); Bilirubin,Total 0.9 mg/dl (0.2-1.0); Creatinine Clr Calc Pharmacy 82.4 ml/min; Est GFR (African American) 102.2 ml/min; Est GFR (Non-African American) 88.2 ml/min; Globulin 3.4 gm/dl (2.5-4.0); Potassium 3.9 mmol/L (3.5-5.1); Total Protein 7.7 gm/dl (6.0-8.3)
[2023-10-28 09:39] LABS: Acetaminophen < 3 ug/ml (10-30); Salicylate < 3.0 mg/dl (3.0-30)
[2023-10-28 09:52] LABS: Thyroid Stimulating Hormone 1.523 uIu/ml (0.300-4.500)
[2023-10-28 10:03] LABS: Amphetamines+Metham, Urine Neg (Neg); Barbiturates, Urine Neg (Neg); Benzodiazepine, Urine Neg (Neg); Cocaine, Urine Neg (Neg); MDMA (Ecstacy), Urine Neg (Neg); Marijuana, Urine Neg (Neg); Methadone, Urine Neg (Neg); Opiate, Urine Neg (Neg); Phencyclidine, Urine Neg (Neg)
[2023-10-28] MEDS ORDERED: hydrOXYzine HCl 25 MG TAB PO PRN (12:28)
[2023-10-28] MEDS ORDERED: SODIUM CHLORIDE 0.65% NA SOLN 45 ML (OCEAN) PRN (12:28)
[2023-10-28] MEDS ORDERED: MAGNESIUM HYDROXIDE SUSP 30 ML UDC PO PRN (12:28)
[2023-10-28] MEDS ORDERED: BISMUTH SUBSALICYLATE LIQD 236 ML PO PRN (12:28)
[2023-10-28] MEDS ORDERED: ALUMINUM/MAGNESIUM SUSP 30 ML UDC PO PRN (12:28)
[2023-10-28] MEDS: ACETAMINOPHEN 325 MG TAB PO PRN (16:00)
[2023-10-28] MEDS ORDERED: LORazepam 0.5 MG TAB PO PRN (17:07)
[2023-10-28] MEDS: LORazepam 0.5 MG TAB PO SCH (18:06)
[2023-10-28] MEDS: FLUoxetine HCL 20 MG CAP PO SCH (20:46)
[2023-10-28] MEDS: QUEtiapine FUMARATE 25 MG TABLET PO SCH (20:47)
--- NOTE | 2023-10-29 08:14 | History & Physical ---
Date of Service October 29, 2023 Impression / Recommendations Impression Latricia is a 28 year old woman with a history of panic disorder, post- mood symptoms, bipolar affective disorder type II, ADHD and anxiety who was admitted for worsening mood symptoms causing inability to function and SI causing her to feel unable to remain safe. Diagnostically consistent with unspecified mood disorder-most likely a combination of BPAD type II depressive episode with anxious distress versus MDD with anxious distress (as she denies any history of hypomanic or manic episodes) versus post- depression and anxiety and panic disorder with agoraphobia and co-morbid ADHD. She is deemed in need of psychiatric hospitalization for diagnostic clarification, safety and stabilization, medication management and development of further coping skills. Discussed medication treatment options in detail. Discussed risks, benefits and alternatives. Patient would like to continue with fluoxetine for post- depression and anxiety and to start and consented to switch from ativan to Klonopin for panic disorder with agoraphobia while waiting for fluoxetine to take effect, mirtazapine for post- anxiety and depression and potential trial of gabapentin for migraine symptoms and off-label for anxiety. Also discussed option to consider trial of clonidine or guanfacine depending on mirtazapine response. Reviewed side effects including but not limited to: GI, HAYNES, sexual side effects, sedation, increased appetite, dependence/addiction and inability to drive or operate machinery with Klonopin, respiratory depression with klonopin and gabapentin which could be fatal especially if combined with alcohol. Overall I spent a total of 80 minutes for this admission including review of chart records, review of labwork, direct evaluation of the patient, counseling the patient, ordering medication, risk assessment, discussion with the psychiatric liason RN and documentation in the electronic health record. (1) Depression with suicidal ideation: (2) Bipolar 2 disorder: (3) Generalized anxiety disorder with panic attacks: (4) Panic disorder: (5) Migraine: Plan 10/29/2023: The patient was admitted to the [facility] ([facility]) on q15 min checks (behavioral with suicide precautions) for safety. The patient will participate in group, recreational, and milieu therapies and will be offered additional individual and family sessions as clinically appropriate. -Continue fluoxetine 40mg qd, consider titration to 60mg qd in coming days -Discontinue Seroquel -Start mirtazapine 7.5mg HS with additional 7.5mg HS prn for insomnia -Switch from lorazepam BID to Klonopin once daily -Consider use of gabapentin prn in coming days depending on response to Klonopin and mirtazapine additions -Mood Disorder Questionnaire given reported history of BPAD type II but her denial of any history of josefina or hypomania episodes Inventory Assets Strengths: supportive relationships, willing to get treatment Needs: safety and stabilization, medication adjustment, additional coping skills, incr eased outpatient services Suicide Risk Level Suicide Risk Level: High-Moderate (q15 min suicide checks) (anxiety and depression with SI prior to admission but feels safe in the hospital, able to safety contract and agrees to let nursing/staff know should they develop plan, intent or feel unable to remain safe.) Suicide Risk Level Comments: Risk Factors Assessment Male: No : Yes Do You Have Access To A Gun?: Yes ( has many guns- were secured after last admission) Health Problems: Yes (migraines) Mental Health Diagnoses: Yes Substance Use Disorders: No Previous Attempt: No Family History of Suicide: Yes Previous Psychiatric Hospitalization: Yes Protective Factors Assessment : Yes Responsible for Young Children: Yes Employed: Yes Stable Relationships: Yes Supportive Family: Yes Good Rapport with Provider: Yes Psychiatric History Identifying Data LATRICIA CALIXTO is a 28-year-old F who currently lives in [place] with her and children, has a history of ADHD, anxiety, panic disorder, post- depression, bipolar affective disorder type II, and was admitted on 10/28/23 12:29 on a 201 voluntary commitment for worsening anxiety, depression and SI. Chief Complaint "I have nightmares about having a panic attack". History of Present Illness Latricia presents for psychiatric admission for worsening depression, anxiety, insomnia and SI in the context of multiple psychosocial stressors including adjustments to her psychiatric medications following the of her now eight month old daughter with increased symptoms of severe anxiety in the post- period. She notes the SI came out of distress from her symptoms "I just don't want to feel panic 08/02, I just want it to end, I don't want to be so exhausted". She's been having "obsessive thoughts" like worrying about not being able to drive and feels like "I work myself into a panic". She denies any obsessive thoughts about harm occurring to her children or post- psychosis or HI thoughts. She feels that hormone changes are likely a significant contributing factor as she experienced very similar symptoms following the of her 5 yo and prior to had always dealt with non-regular menstrual cycles. She is currently prescribed psychiatric medications of fluoxetine 40mg HS (increased from 20mg last week), seroquel 50mg HS, and lorazepam 0.5mg BID (breakfast and late afternoon). Ativan makes her tired but doesn't fully improve the panic. Seroquel helps with sleep but causes shortness of breath after she takes it which contributes to severe panic before bed. Additional recent history per ED CM note from 10/28/2023: "She reports that she has been having severe anxiety and panic attacks over the past 3 months. She reports a history of similar symptoms 5 months after the of her first child 5 years ago. It took time and medications, but she returned to her [facility] after a year or so of treatment. She had her daughter 8 months ago, and same symptoms of anxiety, panic, and depression returned 5 months . Latricia reports that the symptoms have become so severe that she has started having suicidal thoughts of overdosing on her medications to end the constant anxiety. Latricia believes that she would not act on these thoughts, but is unsure. She is able to identify her children and family as protective factors. Latricia is diagnosed with anxiety, mood disorder, Bipolar, and ADHD. She has required 2 hospitalizations for mental health since July. Her most recent stay was last week at [facility]. She did not feel it was therapeutic facility, and if anything, it made her worse. She left after 72 hours. They did make medications changes; Prozac increased from 20mg to 40mg daily, and they added Propranolol. Latricia reports that she got severe diarrhea from the Propranolol, so she stopped taking it when she got home. She also takes Seroquel as prescribed. She reports that when these symptoms started in July Shweta Gonsalez at [place] took her off her ADHD medications out of concern that it could be contributing to her anxiety. Latricia reports that her anxiety is constant and is feeling like she is in fight or flight 08/02. This has resulted in her feeling depressed, symptoms including; hopelessness, helplessness, isolation, poor concentrations, difficulty doing ADLs, and having crying spells. She also reports decreased appetite and poor appetite. She reports that she is constantly waking due to nightmares of panic attacks. Latricia denies past history of suicide attempts or self-harm. She denies drug, alcohol, and tobacco use. She currently sees Saroj at [facility] every 2 weeks, and is also to be seeing a psychiatrist via telehealth out of [place] on November 10. She has been seeing Shweta Gonsalez with [facility] for the past 6 years, but is wanting to switch providers. She lives with her and 2 children. She feels that her and children. She expresses that her is getting frustrated with her current mental state, and she understands why. Naveen children are being cared for by her and mother. She denies thoughts of wanting to hurt them. She expresses concerns about them seeing her in hurt current state and wants to return to being able to care for them." Psychiatric ROS notable for no current nor history of symptoms of josefina, psychosis, PTSD, OCD nor eating disorder. Past Psychiatric History Current Psychiatric Diagnosis: MDD, hx post depression Outpatient Services: [facility] Previous Psych Admissions: [place] ~ age 14; July 2023: [facility]; early October 2023: [facility] Do You Have Access To A Gun?: Yes ( has many guns- were secured after last admission) History of Previous Suicide Attempt: No Past Medication Trials: Prozac, Lamictal, Adderall, Vyvanse, Seroquel, propranolol (diarrhea and "super depressed"), sertraline Past Head Trauma/Neuro History History of Concussion/Seizure: No Allergies Allergy/AdvReac Type Severity Reaction Status Date / Time cefixime [From Suprax] Allergy Intermediate Rash Verified 10/26/23 15:01 Cephalosporins Allergy Intermediate rash Verified 10/26/23 15:01 latex Allergy Mild ITCHY Verified 10/26/23 15:01 Macrolide Antibiotics Allergy Unknown UNK Verified 10/26/23 15:01 Home Medications Medication Instructions Recorded Confirmed Type lorazepam 0.5 mg tablet 0.5 mg PO BIDM #30 tabs 08/05/23 10/28/23 Rx norethindrone acetate 1.5 1 tab PO DAILY #21 tabs 02/07/24 04/11/24 Rx mg-ethinyl estradiol 30 mcg tablet (Junel) quetiapine 50 mg tablet (Seroquel) 50 mg PO HS 09/22/23 10/28/23 History fluoxetine 20 mg capsule 40 mg PO HS 10/25/23 10/28/23 History propranolol 10 mg tablet 10 mg PO BID PRN Anxiety 10/28/23 10/28/23 History Family History Family History of: Depression, Anxiety and Bipolar Family Mental Health History Comment: dad is 'functioning' alcoholic, paternal uncle from alcoholism/ depression--was unsure if he completed suicide, mom has anxiety Alcohol History Hx of Alcohol Use Over the Past 12 Months: No AUDIT Total Score: 0 Smoking Use Have You Smoked or Used Tobacco Products in the Last 30 Days: No tobacco type: cigarettes Smoking Status: Never smoker Substance History Hx of Prescription Med Misuse Over the Past 12 Months: No Hx of Over the Counter Med Misuse Over the Past 12 Months: No Hx of Inhalent Misuse Over the Past 12 Months: No Hx of Organic Substance Use Over the Past 12 Months: No Hx of Illegal Substances/Street Drug Use Over Past 12 Months: No Problems as a Result of Past Substance Use: None Identified Personal History Living Arrangements: Home Highest Grade Completed: High School Graduate 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) Marital Status: Number Of Children: 2-5 yo boy and 8 month old baby girl Beliefs That Will Affect Care: None Current Legal Problems: No Hx Legal Problems: No Hx Traumatic Life Events: No Patient History Medical History Suicidal ideation (spontaneous vaginal delivery) Supervision of normal intrauterine in multigravida Oral contraceptive pill surveillance Rectal bleeding Gallstones Depression Panic disorder CLAUSTROPHOBIA Bipolar 1 disorder GERD (gastroesophageal reflux disease) UNDER CONTROL Anxiety Kidney stones PASSED ON OWN Migraine Surgical History History of breast biopsy LEFT History of myringotomy History of colonoscopy History of cystoscopy History of endoscopy Family History Grandmother (Maternal) Breast cancer Grandfather (Paternal) Colorectal cancer Other Cancer Denies family history of Ovarian cancer Social History Smoking Status: Never smoker Tobacco Type: Cigarettes Cigarettes Per Day: 5 cigs per week; Second Hand Exposure: No; Do You Dip or Chew Tobacco: No; Hx Alcohol Use: No Hx Substance Use: No Preferred Language: Nigerian Communication Ability: Effective Visual Impairment: No Limitations Hearing Ability: Normal Barrel Bung Remover And Dumper Required: No Beliefs That Will Affect Care: None marital status: marital status details: Hussain (28) [phone] Current Living Situation: Spouse Current Living Situation Comment: lives with spouse and son current occupational status: employed current occupation: own business, in home daycare Feels Safe at Home: Yes Diet: regular caffeine: Yes Physical Activity Frequency: Daily Seatbelt Use: always Sunscreen Use: Yes Gender Identity: Female Assistive Devices: Contacts Review of Systems Review of Systems: All systems reviewed & are unremarkable except as noted in HPI & below (HAYNES, floaters ) Physical Exam Psychiatric: Orientation: alert and oriented x 3 Apperance: appropriately dressed and appropriately groomed Eye Contact: good eye contact Motor Behavior: no abnormal motor movements Speech: normal rate/rhythm/volume of speech Affect: + depressed affect, + anxious affect, + tearful affect and + constricted affect Mood: + depressed mood and + anxious mood Thought Process: goal directed thought process Thought Content: reality based without delusions Suicidal Thoughts: denies suicidal plan and denies suicidal intent; + reports suicidal thoughts (intermittent thoughts, feels safe in the hospital ) Homicidal Thoughts: denies homicidal thoughts Hallucinations: no auditory hallucinations and no visual hallucinations Cognition: recent memory grossly intact, remote memory grossly intact, attention grossly intact and language grossly intact Estimated Intelligence: consistent with education level Insight: + fair insight Judgment: + limited judgement Vital Signs (Past 24 Hours): Last Vital Signs Temp 36.6 C 10/29/23 06:32 Pulse 90 10/29/23 06:33 Resp 16 10/29/23 06:32 BP 117/82 10/29/23 06:33 Pulse Ox 98 10/28/23 11:43 O2 Del Method Room Air 10/28/23 12:27 Exam Statement: A physical exam was performed in the ED by Dr. Bonilla for the purposes of medical clearance. I accept that physical as correct and adequate for the purposes of the inpatient physical exam. Results & Data ([facility]) Laboratory Results Laboratory Results - last 24 hr 10/28/23 08:57 WBC 10.81 H RBC 4.38 Hgb 12.7 Hct 39.0 MCV 89.0 MCH 29.0 MCHC 32.6 RDW Std Deviation 44.1 RDW Coeff of Dionte 13.4 Plt Count 411 H MPV 8.9 L Immature Gran % (Auto) 0.3 Neut % (Auto) 81.0 Lymph % (Auto) 12.9 [place] % (Auto) 4.9 Eos % (Auto) 0.7 Baso % (Auto) 0.2 Neut # (Auto) 8.76 H Lymph # (Auto) 1.39 [place] # (Auto) 0.53 Eos # (Auto) 0.08 Baso # (Auto) 0.02 Immature Gran # (Auto) 0.03 Sodium 135 L Potassium 3.9 Chloride 105 Carbon Dioxide 23 Anion Gap 7 BUN 9 Creatinine 0.89 Est Cr Clr Drug Dosing 82.4 Est GFR ( Amer) 102.2 Est GFR (Non-Af Amer) 88.2 BUN/Creatinine Ratio 10.1 Glucose 99 Calcium 9.0 Total Bilirubin 0.9 AST 35 ALT 48 Alkaline Phosphatase 76 Total Protein 7.7 Albumin 4.3 Globulin 3.4 Albumin/Globulin Ratio 1.3 TSH 1.523 HCG, Qual Negative Urine Color Yellow Urine Appearance Clear Urine pH 7.0 Ur Specific [place] 1.016 Urine Protein Trace H Urine Glucose (UA) Negative Urine Ketones Trace H Urine Blood 3+ H Urine Nitrite Negative Urine Bilirubin Negative Urine Urobilinogen Negative Ur Leukocyte Esterase 1+ H Urine WBC (Auto) 11-20 H Urine RBC (Auto) >20 H U Hyaline Cast (Auto) 0-2 U Epithel Cells (Auto) 3-5 H Urine Bacteria (Auto) None Seen Salicylates < 3.0 L Urine Opiates Screen Neg Ur Methadone, Qual Neg Acetaminophen < 3 L Urine Barbiturates Neg Ur Phencyclidine (PCP) Neg U Amphetamin/Meth Scrn Neg MDMA (Ecstasy) Screen Neg U Benzodiazepines Scrn Neg Ur Cocaine Metabolite Neg U Marijuana (THC) Screen Neg Ethyl Alcohol mg/dL < 10.0 SARS-CoV-2, RNA, NAAT NEGATIVE Current Inpatient Medications Current Inpatient Medications: Current Inpatient Medications Acetaminophen (Acetaminophen 325 Mg Tab) 650 mg PO Q4H PRN PRN Reason: Headache or Minor Fever Stop: 11/27/23 12:27 Last Admin: 10/28/23 21:32 Dose: 650 mg Al Hydrox/Mg Hydrox/Simethicone (Aluminum/Magnesium Susp 30 Ml Udc) 30 ml PO Q4H PRN PRN Reason: GI Upset Stop: 11/27/23 12:27 Bismuth Subsalicylate (Bismuth Subsalicylate Liqd 236 Ml) 15 ml PO PRN PRN PRN Reason: Loose Stool Stop: 11/27/23 12:27 Fluoxetine HCl (Fluoxetine Hcl 20 Mg Cap) 40 mg PO HS SEPIDEH Stop: 11/27/23 21:59 Last Admin: 10/28/23 20:46 Dose: 40 mg Hydroxyzine HCl (Hydroxyzine Hcl 25 Mg Tab) 50 mg PO HSZ PRN PRN Reason: Insomnia Stop: 11/27/23 12:27 Hydroxyzine HCl (Hydroxyzine Hcl 25 Mg Tab) 25 mg PO Q4H PRN PRN Reason: Anxiety Stop: 11/27/23 12:27 Lorazepam (Lorazepam 0.5 Mg Tab) 0.5 mg PO BIDM SEPIDEH Stop: 11/27/23 17:44 Last Admin: 10/28/23 18:06 Dose: 0.5 mg Lorazepam (Lorazepam 0.5 Mg Tab) 0.5 mg PO DAILY PRN PRN Reason: PANIC Stop: 11/27/23 17:06 Magnesium Hydroxide (Magnesium Hydroxide Susp 30 Ml Udc) 30 ml PO DAILY PRN PRN Reason: Constipation Stop: 11/27/23 12:27 Quetiapine Fumarate (Quetiapine Fumarate 25 Mg Tablet) 50 mg PO HS [facility] Stop: 11/27/23 21:59 Last Admin: 10/28/23 20:47 Dose: 50 mg Sodium Chloride (Sodium Chloride 0.65% Na Soln 45 Ml ([place])) 1 - 2 sprays NA PRN PRN PRN Reason: Nasal Dryness/Congestion Stop: 11/27/23 12:27
[2023-10-29] MEDS ORDERED: MIRTAZAPINE TAB 15 MG TAB PO PRN (11:31)
[2023-10-29] MEDS: clonazePAM 0.5 MG TAB PO SCH (12:58)
[2023-10-29] MEDS: NORETHINDRONE ACETATE PO SCH (20:33)
[2023-10-29] MEDS: [UNRECOGNIZED DRUG - OTHER] PO SCH (20:33)
[2023-10-29] MEDS: ETHINYL ESTRADIOL PO SCH (20:33)
[2023-10-29] MEDS: MIRTAZAPINE TAB 15 MG TAB PO SCH (20:33)
[2023-10-30] MEDS: hydrOXYzine HCl 25 MG TAB PO PRN (03:12)
--- NOTE | 2023-10-30 10:03 | Psychiatric Progress Note ---
Date of Service October 30, 2023 Impression / Recommendations Impression Latricia is a 28 year old woman with a history of panic disorder, post- mood symptoms, bipolar affective disorder type II, ADHD and anxiety who was admitted for worsening mood symptoms causing inability to function and SI causing her to feel unable to remain safe. Diagnostically consistent with unspecified mood disorder-most likely a combination of BPAD type II depressive episode with anxious distress versus MDD with anxious distress (as she denies any history of hypomanic or manic episodes) versus post- depression and anxiety and panic disorder with agoraphobia and co-morbid ADHD. She is deemed in need of psychiatric hospitalization for diagnostic clarification, safety and stabilization, medication management and development of further coping skills. 10/30/2023: Some lessening of anxiety and mood improvement after switching to Klonopin. Still with sleep difficulty. She consents to increasing mirtazapine and reducing dose of Klonopin as it seemed to contribute to dizziness this morning though she also has a history of vertigo. Mood Disorder Questionnaire negative for BPAD and she reports no hx of hypomania so will not restart mood stabilizer at this time. Overall, I spent a total of 35 minutes on this case including meeting with the patient, reviewing the chart, nursing report, multidisciplinary team meeting, orders, and documentation. (1) Depression with suicidal ideation: (2) Generalized anxiety disorder with panic attacks: (3) Panic disorder: (4) Migraine: Plan 10/30/2023: Decrease Klonopin to 0.25mg qAM, increase mirtazapine for insomnia 10/29/2023: The patient was admitted to the [facility] ([facility]) on q15 min checks (behavioral with suicide precautions) for safety. The patient will participate in group, recreational, and milieu therapies and will be offered additional individual and family sessions as clinically appropriate. -Continue fluoxetine 40mg qd, consider titration to 60mg qd in coming days -Discontinue Seroquel -Start mirtazapine 7.5mg HS with additional 7.5mg HS prn for insomnia -Switch from lorazepam BID to Klonopin once daily -Consider use of gabapentin prn in coming days depending on response to Klonopin and mirtazapine additions -Mood Disorder Questionnaire given reported history of BPAD type II but her denial of any history of josefina or hypomania episodes Inventory Assets Strengths: supportive relationships, willing to get treatment Needs: safety and stabilization, medication adjustment, additional coping skills, increased outpatient services Suicide Risk Level Suicide Risk Level: High-Moderate (q15 min suicide checks) (anxiety and depression with SI prior to admission but feels safe in the hospital, able to safety contract and agrees to let nursing/staff know should they develop plan, intent or feel unable to remain safe.) Suicide Risk Level Comments: Risk Factors Assessment Male: No : Yes Do You Have Access To A Gun?: Yes ( has many guns- were secured after last admission) Health Problems: Yes (migraines) Mental Health Diagnoses: Yes Substance Use Disorders: No Previous Attempt: No Family History of Suicide: Yes Previous Psychiatric Hospitalization: Yes Protective Factors Assessment : Yes Responsible for Young Children: Yes Employed: Yes Stable Relationships: Yes Supportive Family: Yes Good Rapport with Provider: Yes Interval History Identifying Information LATRICIA CALIXTO is a 28-year-old F who currently lives in [place] with her and children, has a history of ADHD, anxiety, panic disorder, post- depression, bipolar affective disorder type II, and was admitted on 10/28/23 12:29 on a 201 voluntary commitment for worsening anxiety, depression and SI. Chief Complaint "Yeah I felt dizzy and tired". Review of Systems Sleep Information Total Hours of Sleep: 7.30 Sleep Comments: Pt requested PRN Vistaril at approx. 0300 for sleep. Meal Information Percent Meal Consumed - Breakfast: 100 Percent Meal Consumed - Lunch: 100 Percent Meal Consumed - Dinner: 75 Subjective Subjective Patient was seen & assessed and interval progress reviewed with treatment team nursing and social work. Had a good evening and felt that Klonopin was helpful yesterday afternoon for anxiety. Didn't sleep as well, woke up around 3am and chose to take prn Vistaril. Attending groups. Facetimed her kids. She reported experiencing dizziness after taking Klonopin this morning. She mentioned that the medication seemed to help with her panic symptoms. No SOB last night after stopping Seroquel. Reviewed her mood disorder questionnaire which was negative and she continues to deny any history of hypomania. Physical Exam Psychiatric Orientation: alert and oriented x 3 Apperance: appropriately dressed and appropriately groomed Eye Contact: good eye contact Motor Behavior: no abnormal motor movements Speech: normal rate/rhythm/volume of speech Affect: + depressed affect and + constricted affect Mood: + depressed mood and + anxious mood Thought Process: goal directed thought process Thought Content: reality based without delusions Suicidal Thoughts: denies suicidal plan and denies suicidal intent; + reports suicidal thoughts (intermittent thoughts, feels safe in the hospital ) Homicidal Thoughts: denies homicidal thoughts Hallucinations: no auditory hallucinations and no visual hallucinations Cognition: recent memory grossly intact, remote memory grossly intact, attention grossly intact and language grossly intact Estimated Intelligence: consistent with education level Insight: + fair insight Judgment: + fair judgement Vital Signs (Past 24 Hours) Last Vital Signs Temp 36.6 C 10/29/23 06:32 Pulse 90 10/29/23 06:33 Resp 16 10/29/23 06:32 BP 117/82 10/29/23 06:33 Pulse Ox 98 10/28/23 11:43 O2 Del Method Room Air 10/28/23 12:27 Results & Data ([facility]) Current Inpatient Medications Current Inpatient Medications: Current Inpatient Medications Acetaminophen (Acetaminophen 325 Mg Tab) 650 mg PO Q4H PRN PRN Reason: Headache or Minor Fever Stop: 11/27/23 12:27 Last Admin: 10/29/23 12:30 Dose: 650 mg Al Hydrox/Mg Hydrox/Simethicone (Aluminum/Magnesium Susp 30 Ml Udc) 30 ml PO Q4H PRN PRN Reason: GI Upset Stop: 11/27/23 12:27 Bismuth Subsalicylate (Bismuth Subsalicylate Liqd 236 Ml) 15 ml PO PRN PRN PRN Reason: Loose Stool Stop: 11/27/23 12:27 Clonazepam (Clonazepam 0.5 Mg Tab) 0.5 mg PO DAILY SEPIDEH Stop: 11/28/23 11:44 Last Admin: 10/30/23 08:56 Dose: 0.5 mg Fluoxetine HCl (Fluoxetine Hcl 20 Mg Cap) 40 mg PO HS SEPIDEH Stop: 11/27/23 21:59 Last Admin: 10/29/23 20:33 Dose: 40 mg Hydroxyzine HCl (Hydroxyzine Hcl 25 Mg Tab) 50 mg PO HSZ PRN PRN Reason: Insomnia Stop: 11/27/23 12:27 Last Admin: 10/30/23 03:12 Dose: 50 mg Hydroxyzine HCl (Hydroxyzine Hcl 25 Mg Tab) 25 mg PO Q4H PRN PRN Reason: Anxiety Stop: 11/27/23 12:27 Magnesium Hydroxide (Magnesium Hydroxide Susp 30 Ml Udc) 30 ml PO DAILY PRN PRN Reason: Constipation Stop: 11/27/23 12:27 Mirtazapine (Mirtazapine Tab 15 Mg Tab) 7.5 mg PO HS PRN PRN Reason: Insomnia Stop: 11/28/23 21:59 Mirtazapine (Mirtazapine Tab 15 Mg Tab) 7.5 mg PO HS SEPIDEH Stop: 11/28/23 21:59 Last Admin: 10/29/23 20:33 Dose: 7.5 mg Miscellaneous (Patient's Own Oral Contraceptive~June) 1 each PO HS SEPIDEH Stop: 11/28/23 21:59 Last Admin: 10/29/23 20:33 Dose: 1 each Sodium Chloride (Sodium Chloride 0.65% Na Soln 45 Ml (Macy)) 1 - 2 sprays NA PRN PRN PRN Reason: Nasal Dryness/Congestion Stop: 11/27/23 12:27 Mental Health & Subst Abuse Tx Psychiatrist Name of Psychiatrist: Mookie [facility] Psychiatrist's Therapist Name of Therapist: Willy Therapist's Date of Therapist Appointment: 11/11/23 Post Discharge Appointments Primary Care Physician Name Of Family Doctor/PCP: NARCISA Cherry-[facility] Contact Information Discharge Discharge Address: [address] [place] [address]
[2023-10-30] MEDS: MIRTAZAPINE TAB 15 MG TAB PO SCH (21:03)
[2023-10-31] MEDS: clonazePAM 0.5 MG TAB PO SCH (08:49)
--- NOTE | 2023-10-31 09:05 | Psychiatric Progress Note ---
Date of Service October 31, 2023 Impression / Recommendations Impression Latricia is a 28 year old woman with a history of panic disorder, post- mood symptoms, bipolar affective disorder type II, ADHD and anxiety who was admitted for worsening mood symptoms causing inability to function and SI causing her to feel unable to remain safe. Diagnostically consistent with unspecified mood disorder-most likely a combination of BPAD type II depressive episode with anxious distress versus MDD with anxious distress (as she denies any history of hypomanic or manic episodes) versus post- depression and anxiety and panic disorder with agoraphobia and co-morbid ADHD. She is deemed in need of psychiatric hospitalization for diagnostic clarification, safety and stabilization, medication management and development of further coping skills. 10/31/2023: Medication adjustments seem to be helping with improvement in depression and SI when morning anxiety lessened. No new medication side effects, still with some floaters vs spots in her vision but no worse than prior to admission. Ongoing difficulty with concentration. Overall, I spent a total of 30 minutes on this case including meeting with the patient, reviewing the chart, nursing report, multidisciplinary team meeting, or ders, and documentation. (1) Depression with suicidal ideation: (2) Generalized anxiety disorder with panic attacks: (3) Panic disorder: (4) Migraine: Plan 10/31/2023: Continue current medications and tx plan. 10/30/2023: Decrease Klonopin to 0.25mg qAM, increase mirtazapine for insomnia 10/29/2023: The patient was admitted to the [facility] ([facility] unit) on q15 min checks (behavioral with suicide precautions) for safety. The patient will participate in group, recreational, and milieu therapies and will be offered additional individual and family sessions as clinically appropriate. -Continue fluoxetine 40mg qd, consider titration to 60mg qd in coming days -Discontinue Seroquel -Start mirtazapine 7.5mg HS with additional 7.5mg HS prn for insomnia -Switch from lorazepam BID to Klonopin once daily -Consider use of gabapentin prn in coming days depending on response to Klonopin and mirtazapine additions -Mood Disorder Questionnaire given reported history of BPAD type II but her denial of any history of josefina or hypomania episodes Inventory Assets Strengths: supportive relationships, willing to get treatment Needs: safety and stabilization, medication adjustment, additional coping skills, increased outpatient services Suicide Risk Level Suicide Risk Level: Moderate (q15 min suicide checks) (anxiety and depression with SI prior to admission but mood improving, feels safe in the hospital, able to safety contract and agrees to let nursing/staff know should they develop plan, intent or feel unable to remain safe.) Suicide Risk Level Comments: Risk Factors Assessment Male: No : Yes Do You Have Access To A Gun?: Yes ( has many guns- were secured after last admission) Health Problems: Yes (migraines) Mental Health Diagnoses: Yes Substance Use Disorders: No Previous Attempt: No Family History of Suicide: Yes Previous Psychiatric Hospitalization: Yes Protective Factors Assessment : Yes Responsible for Young Children: Yes Employed: Yes Stable Relationships: Yes Supportive Family: Yes Good Rapport with Provider: Yes Interval History Identifying Information LATRICIA CALIXTO is a 28-year-old F who currently lives in [place] with her and children, has a history of ADHD, anxiety, panic disorder, post- depression, bipolar affective disorder type II, and was admitted on 10/28/23 12:29 on a 201 voluntary commitment for worsening anxiety, depression and SI. Chief Complaint "I woke up feeling depressed but I feel like I'm in a good mood now". Review of Systems Sleep Information Total Hours of Sleep: 7.5 Sleep Comments: Meal Information Percent Meal Consumed - Breakfast: 90 Percent Meal Consumed - Lunch: 100 Percent Meal Consumed - Dinner: 100 Subjective Subjective Patient was seen & assessed and interval progress reviewed with treatment team nursing and social work. [place] overly tired most of yesterday. Took mirtazapine l ast night and did not require any prns. Woke up feeling depressed with some SI but after taking Klonopin she feels much better as it helped significantly with her anxiety and that in tunr helped her mood and got rid of SI. She had a good call with her kids last night. Still having a hard time concentrating and still with floaters vs spots in her vision (they seem to worsen when looking at bright light) but these have not worsened with medication adjustments. Had some vivid dreams but not distressing and woke once but was able to fall back asleep. Physical Exam Psychiatric Orientation: alert and oriented x 3 Apperance: appropriately dressed and appropriately groomed Eye Contact: good eye contact Motor Behavior: no abnormal motor movements Speech: normal rate/rhythm/volume of speech Affect: + depressed affect Mood: + depressed mood and + anxious mood Thought Process: goal directed thought process Thought Content: reality based without delusions Suicidal Thoughts: denies suicidal plan and denies suicidal intent; + reports suicidal thoughts (intermittent thoughts, feels safe in the hospital ) Homicidal Thoughts: denies homicidal thoughts Hallucinations: no auditory hallucinations and no visual hallucinations Cognition: recent memory grossly intact, remote memory grossly intact, attention grossly intact and language grossly intact Estimated Intelligence: consistent with education level Insight: + fair insight Judgment: + fair judgement Vital Signs (Past 24 Hours) Last Vital Signs Temp 36.8 C 10/31/23 06:30 Pulse 76 10/31/23 06:30 Resp 16 10/31/23 06:30 BP 107/73 10/31/23 06:30 Pulse Ox 98 10/31/23 06:30 O2 Del Method Room Air 10/31/23 06:30 Results & Data ([facility]) Current Inpatient Medications Current Inpatient Medications: Current Inpatient Medications Acetaminophen (Acetaminophen 325 Mg Tab) 650 mg PO Q4H PRN PRN Reason: Headache or Minor Fever Stop: 11/27/23 12:27 Last Admin: 10/29/23 12:30 Dose: 650 mg Al Hydrox/Mg Hydrox/Simethicone (Aluminum/Magnesium Susp 30 Ml Udc) 30 ml PO Q4H PRN PRN Reason: GI Upset Stop: 11/27/23 12:27 Bismuth Subsalicylate (Bismuth Subsalicylate Liqd 236 Ml) 15 ml PO PRN PRN PRN Reason: Loose Stool Stop: 11/27/23 12:27 Clonazepam (Clonazepam 0.5 Mg Tab) 0.25 mg PO DAILY SEPIDEH Stop: 11/30/23 08:59 Last Admin: 10/31/23 08:49 Dose: 0.25 mg Fluoxetine HCl (Fluoxetine Hcl 20 Mg Cap) 40 mg PO HS SEPIDEH Stop: 11/27/23 21:59 Last Admin: 10/30/23 21:03 Dose: 40 mg Hydroxyzine HCl (Hydroxyzine Hcl 25 Mg Tab) 50 mg PO HSZ PRN PRN Reason: Insomnia Stop: 11/27/23 12:27 Last Admin: 10/30/23 03:12 Dose: 50 mg Hydroxyzine HCl (Hydroxyzine Hcl 25 Mg Tab) 25 mg PO Q4H PRN PRN Reason: Anxiety Stop: 11/27/23 12:27 Magnesium Hydroxide (Magnesium Hydroxide Susp 30 Ml Udc) 30 ml PO DAILY PRN PRN Reason: Constipation Stop: 11/27/23 12:27 Mirtazapine (Mirtazapine Tab 15 Mg Tab) 7.5 mg PO HS PRN PRN Reason: Insomnia Stop: 11/28/23 21:59 Mirtazapine (Mirtazapine Tab 15 Mg Tab) 15 mg PO HS SEPIDEH Stop: 11/29/23 21:59 Last Admin: 10/30/23 21:03 Dose: 15 mg Miscellaneous (Patient's Own Oral Contraceptive~Junel ) 1 each PO HS SEPIDEH Stop: 11/28/23 21:59 Last Admin: 10/30/23 21:03 Dose: 1 each Sodium Chloride (Sodium Chloride 0.65% Na Soln 45 Ml (Hart)) 1 - 2 sprays NA PRN PRN PRN Reason: Nasal Dryness/Congestion Stop: 11/27/23 12:27 Mental Health & Subst Abuse Tx Psychiatrist Name of Psychiatrist: Mookie [facility] Psychiatrist's Therapist Name of Therapist: Willy Therapist's Date of Therapist Appointment: 11/11/23 Post Discharge Appointments Primary Care Physician Name Of Family Doctor/PCP: NARCISA Cherry[facility] Contact Information Discharge Discharge Address: [address] [place] [address]
--- NOTE | 2023-11-01 08:50 | Psychiatric Progress Note ---
Date of Service November 01, 2023 Impression / Recommendations Impression Latricia is a 28 year old woman with a history of panic disorder, post- mood symptoms, bipolar affective disorder type II, ADHD and anxiety who was admitted for worsening mood symptoms causing inability to function and SI causing her to feel unable to remain safe. Diagnostically consistent with unspecified mood disorder-most likely a combination of BPAD type II depressive episode with anxious distress versus MDD with anxious distress (as she denies any history of hypomanic or manic episodes) versus post- depression and anxiety and panic disorder with agoraphobia and co-morbid ADHD. She is deemed in need of psychiatric hospitalization for diagnostic clarification, safety and stabilization, medication management and development of further coping skills. 11/01/2023: Anxiety has lessened but feels more depressed and hopeless today. Unclear if some of her symptoms are due to vertigo that started a few months ago and vision changes or more from symptoms of depression that become more apparent as her anxiety lessens. Trial dose of Wellbutrin given in case this would help with low energy and component of ADHD symptoms but this caused an increase in anxiety as anticipated as possible side effect so will not continue with this. Decreasing mirtazapine dose in case this is contributing to sedation. Decreasing Klonopin given vertigo but does seem to offer anxiety benefit when used. Overall, I spent a total of 36 minutes on this case including meeting with the patient, reviewing the chart, nursing report, multidisciplinary team meeting, orders, and documentation. (1) Generalized anxiety disorder with panic attacks: (2) Panic disorder: (3) Migraine: Plan 11/01/2023: Decrease mirtazapine to 7.5mg HS and decrease Klonopin to 0.125mg pr n. 10/31/2023: Continue current medications and tx plan. 10/30/2023: Decrease Klonopin to 0.25mg qAM, increase mirtazapine for insomnia 10/29/2023: The patient was admitted to the [facility] ([facility] mental health unit) on q15 min checks (behavioral with suicide precautions) for safety. The patient will participate in group, recreational, and milieu therapies and will be offered additional individual and family sessions as clinically appropriate. -Continue fluoxetine 40mg qd, consider titration to 60mg qd in coming days -Discontinue Seroquel -Start mirtazapine 7.5mg HS with additional 7.5mg HS prn for insomnia -Switch from lorazepam BID to Klonopin once daily -Consider use of gabapentin prn in coming days depending on response to Klonopin and mirtazapine additions -Mood Disorder Questionnaire given reported history of BPAD type II but her denial of any history of josefina or hypomania episodes Inventory Assets Strengths: supportive relationships, willing to get treatment Needs: safety and stabilization, medication adjustment, additional coping skills, increased outpatient services Suicide Risk Level Suicide Risk Level: Moderate (q15 min suicide checks) (anxiety and depression with SI prior to admission, anxiety lessening but still with depression but feels safe in the hospital, able to safety contract and agrees to let nursing/staff know should they develop plan, intent or feel unable to remain safe.) Suicide Risk Level Comments: Risk Factors Assessment Male: No : Yes Do You Have Access To A Gun?: Yes ( has many guns- were secured after last admission) Health Problems: Yes (migraines) Mental Health Diagnoses: Yes Substance Use Disorders: No Previous Attempt: No Family History of Suicide: Yes Previous Psychiatric Hospitalization: Yes Protective Factors Assessment : Yes Responsible for Young Children: Yes Employed: Yes Stable Relationships: Yes Supportive Family: Yes Good Rapport with Provider: Yes Interval History Identifying Information LATRICIA CALIXTO is a 28-year-old F who currently lives in [place] with her and children, has a history of ADHD, anxiety, panic disorder, post- depression, bipolar affective disorder type II, and was admitted on 10/28/23 12:29 on a 201 voluntary commitment for worsening anxiety, depression and SI. Chief Complaint "I'm starting to lose hope". Review of Systems Sleep Information Total Hours of Sleep: 8.25 Meal Information Percent Meal Consumed - Breakfast: 90 Percent Meal Consumed - Lunch: 100 Percent Meal Consumed - Dinner: 100 Subjective Subjective Patient was seen & assessed and interval progress reviewed with treatment team nursing and social work. Today describes persistent dizziness, fatigue, and feelings of hopelessness. She has been experiencing dizziness for the past three months and has previously been diagnosed with vertigo. Physical therapy did not improve her symptoms. She also is still seeing floaters, which may contribute to her dizziness. Maricel's anxiety has improved, but she continues to feel depressed, especially due to her upcoming discharge and concerns about her medication regimen. She worries about managing her symptoms and caring for her children after leaving as feels she has no energy and is always tired. Reviewed she has not taken Vyvanse and Adderall recently due to concerns about their impact on her panic symptoms. Physical Exam Psychiatric Orientation: alert and oriented x 3 Apperance: appropriately dressed and appropriately groomed Eye Contact: good eye contact Motor Behavior: no abnormal motor movements Speech: normal rate/rhythm/volume of speech Affect: + depressed affect Mood: + depressed mood Thought Process: goal directed thought process Thought Content: reality based without delusions and + hopelessness Suicidal Thoughts: denies suicidal plan and denies suicidal intent; + reports suicidal thoughts (intermittent thoughts, feels safe in the hospital ) Homicidal Thoughts: denies homicidal thoughts Hallucinations: no auditory hallucinations and no visual hallucinations Cognition: recent memory grossly intact, remote memory grossly intact, attention grossly intact and language grossly intact Estimated Intelligence: consistent with education level Insight: + limited insight Judgment: + fair judgement Vital Signs (Past 24 Hours) Last Vital Signs Temp 36.9 C 11/01/23 06:48 Pulse 90 11/01/23 06:49 Resp 16 11/01/23 06:48 BP 108/76 11/01/23 06:49 Pulse Ox 98 10/31/23 06:30 O2 Del Method Room Air 10/31/23 06:30 Results & Data ([facility]) Current Inpatient Medications Current Inpatient Medications: Current Inpatient Medications Acetaminophen (Acetaminophen 325 Mg Tab) 650 mg PO Q4H PRN PRN Reason: Headache or Minor Fever Stop: 11/27/23 12:27 Last Admin: 10/29/23 12:30 Dose: 650 mg Al Hydrox/Mg Hydrox/Simethicone (Aluminum/Magnesium Susp 30 Ml Udc) 30 ml PO Q4H PRN PRN Reason: GI Upset Stop: 11/27/23 12:27 Bismuth Subsalicylate (Bismuth Subsalicylate Liqd 236 Ml) 15 ml PO PRN PRN PRN Reason: Loose Stool Stop: 11/27/23 12:27 Clonazepam (Clonazepam 0.5 Mg Tab) 0.25 mg PO DAILY SEPIDEH Stop: 11/30/23 08:59 Last Admin: 10/31/23 08:49 Dose: 0.25 mg Fluoxetine HCl (Fluoxetine Hcl 20 Mg Cap) 40 mg PO HS SEPIDEH Stop: 11/27/23 21:59 Last Admin: 10/31/23 20:36 Dose: 40 mg Hydroxyzine HCl (Hydroxyzine Hcl 25 Mg Tab) 50 mg PO HSZ PRN PRN Reason: Insomnia Stop: 11/27/23 12:27 Last Admin: 10/30/23 03:12 Dose: 50 mg Hydroxyzine HCl (Hydroxyzine Hcl 25 Mg Tab) 25 mg PO Q4H PRN PRN Reason: Anxiety Stop: 11/27/23 12:27 Magnesium Hydroxide (Magnesium Hydroxide Susp 30 Ml Udc) 30 ml PO DAILY PRN PRN Reason: Constipation Stop: 11/27/23 12:27 Mirtazapine (Mirtazapine Tab 15 Mg Tab) 7.5 mg PO HS PRN PRN Reason: Insomnia Stop: 11/28/23 21:59 Mirtazapine (Mirtazapine Tab 15 Mg Tab) 15 mg PO HS SEPIDEH Stop: 11/29/23 21:59 Last Admin: 10/31/23 20:37 Dose: 15 mg Miscellaneous (Patient's Own Oral Contraceptive~Junel ) 1 each PO HS SEPIDEH Stop: 11/28/23 21:59 Last Admin: 10/31/23 20:38 Dose: 1 each Sodium Chloride (Sodium Chloride 0.65% Na Soln 45 Ml ([place])) 1 - 2 sprays NA PRN PRN PRN Reason: Nasal Dryness/Congestion Stop: 11/27/23 12:27 Mental Health & Subst Abuse Tx Psychiatrist Name of Psychiatrist: [facility] Psychiatrist's Therapist Name of Therapist: Willy Therapist's Date of Therapist Appointment: 11/11/23 Post Discharge Appointments Primary Care Physician Name Of Family Doctor/PCP: NARCISA Cherry-[facility] Contact Information Discharge Discharge Address: [address] [place] [address]
[2023-11-01] MEDS: buPROPion XL 150 MG TABCR PO SCH (10:45)
[2023-11-01] MEDS: MIRTAZAPINE TAB 15 MG TAB PO SCH (20:59)
--- NOTE | 2023-11-02 08:55 | Psychiatric Progress Note ---
Date of Service November 02, 2023 Impression / Recommendations Impression Latricia is a 28 year old woman with a history of panic disorder, post- mood symptoms, bipolar affective disorder type II, ADHD and anxiety who was admitted for worsening mood symptoms causing inability to function and SI causing her to feel unable to remain safe. Diagnostically consistent with post- depression and anxiety and panic disorder with agoraphobia and co-morbid ADHD. She is deemed in need of psychiatric hospitalization for diagnostic clarification, safety and stabilization, medication management and development of further coping skills. 11/02/2023: Mornings remain difficult with increased anxiety but mood slowly improving. Less tired today with reduced dose of mirtazapine and denies hopelessness today nor SI. Discussed post- depression and anxiety and expected improvement as fluoxetine continues to take effect with use of Klonopin prn for acute panic attacks. Unclear what is causing her tilting sensation as this seems to more related to vertigo as trials off Seroquel and benzodiazpines have not resulted in any relief and symptoms seem fairly consistent regardless of the level of her anxiety/mood symptoms. Overall, I spent a total of 35 minutes on this case including meeting with the patient, reviewing the chart, nursing report, multidisciplinary team meeting, orders, and documentation. (1) Post depression: (2) anxiety: (3) Generalized anxiety disorder with panic attacks: (4) Panic disorder: (5) Migraine: Plan 11/01/2023: Decrease mirtazapine to 7.5mg HS and decrease Klonopin to 0.125mg p rn. 10/31/2023: Continue current medications and tx plan. 10/30/2023: Decrease Klonopin to 0.25mg qAM, increase mirtazapine for insomnia 10/29/2023: The patient was admitted to the [facility] ([facility] mental health unit) on q15 min checks (behavioral with suicide precautions) for safety. The patient will participate in group, recreational, and milieu therapies and will be offered additional individual and family sessions as clinically appropriate. -Continue fluoxetine 40mg qd, consider titration to 60mg qd in coming days -Discontinue Seroquel -Start mirtazapine 7.5mg HS with additional 7.5mg HS prn for insomnia -Switch from lorazepam BID to Klonopin once daily -Consider use of gabapentin prn in coming days depending on response to Klonopin and mirtazapine additions -Mood Disorder Questionnaire given reported history of BPAD type II but her denial of any history of josefina or hypomania episodes Inventory Assets Strengths: supportive relationships, willing to get treatment Needs: safety and stabilization, medication adjustment, additional coping skills, increased outpatient services Suicide Risk Level Suicide Risk Level: Moderate (q15 min suicide checks) (anxiety and depression with SI prior to admission, anxiety lessening but still with depression but feels safe in the hospital, able to safety contract and agrees to let nursing/staff know should they develop plan, intent or feel unable to remain safe.) Suicide Risk Level Comments: Risk Factors Assessment Male: No : Yes Do You Have Access To A Gun?: Yes ( has many guns- were secured after last admission) Health Problems: Yes (migraines) Mental Health Diagnoses: Yes Substance Use Disorders: No Previous Attempt: No Family History of Suicide: Yes Previous Psychiatric Hospitalization: Yes Protective Factors Assessment : Yes Responsible for Young Children: Yes Employed: Yes Stable Relationships: Yes Supportive Family: Yes Good Rapport with Provider: Yes Interval History Identifying Information LATRICIA CALIXTO is a 28-year-old F who currently lives in [place] with her and children, has a history of ADHD, anxiety, panic disorder, post- depression, bipolar affective disorder type II, and was admitted on 10/28/23 12:29 on a 201 voluntary commitment for worsening anxiety, depression and SI. Chief Complaint "I'm doing better". Review of Systems Sleep Information Total Hours of Sleep: 6.30 Sleep Comments: Scheduled HS Remeron Meal Information Percent Meal Consumed - Breakfast: 100 Percent Meal Consumed - Lunch: 100 Percent Meal Consumed - Dinner: 100 Subjective Subjective Patient was seen & assessed and interval progress reviewed with treatment team nursing and social work. Last night reported feeling hopeful. Mornings seem to be much harder for her and this morning reports feeling overwhelmed by the idea of discharge. Mid-day she reports her mood as "doing better". Less fatigue this morning with lower dose of mirtazapine and was still able to fall back asleep. Had good anxiety relief with lower dose of prn Klonopin. Still with vertigo/dizziness/visual symptoms which do not seem to be impacted by her anxiety levels and remain bothersome. She describes this as feeling tilted and vision being off. She has a pending referral for neurology to determine if possible migraine symptoms versus vertigo versus alternative explanation. Discussed ways to practice exposure exercises to help lower anxiety and how challenge depression cognitive distortions related to guilt about her parenting. Physical Exam Psychiatric Orientation: alert and oriented x 3 Apperance: appropriately dressed and appropriately groomed Eye Contact: good eye contact Motor Behavior: no abnormal motor movements Speech: normal rate/rhythm/volume of speech Affect: + depressed affect Mood: + depressed mood Thought Process: goal directed thought process Thought Content: reality based without delusions Suicidal Thoughts: denies suicidal plan and denies suicidal intent; + reports suicidal thoughts (intermittent passive thoughts but lessening, none today) Homicidal Thoughts: denies homicidal thoughts Hallucinations: no auditory hallucinations and no visual hallucinations Cognition: recent memory grossly intact, remote memory grossly intact, attention grossly intact and language grossly intact Estimated Intelligence: consistent with education level Insight: + fair insight Judgment: + fair judgement Vital Signs (Past 24 Hours) Last Vital Signs Temp 36.7 C 11/02/23 06:39 Pulse 87 11/02/23 06:40 Resp 16 11/02/23 06:39 BP 117/80 11/02/23 06:40 Pulse Ox 98 10/31/23 06:30 O2 Del Method Room Air 10/31/23 06:30 Results & Data ([facility]) Current Inpatient Medications Current Inpatient Medications: Current Inpatient Medications Acetaminophen (Acetaminophen 325 Mg Tab) 650 mg PO Q4H PRN PRN Reason: Headache or Minor Fever Stop: 11/27/23 12:27 Last Admin: 10/29/23 12:30 Dose: 650 mg Al Hydrox/Mg Hydrox/Simethicone (Aluminum/Magnesium Susp 30 Ml Udc) 30 ml PO Q4H PRN PRN Reason: GI Upset Stop: 11/27/23 12:27 Bismuth Subsalicylate (Bismuth Subsalicylate Liqd 236 Ml) 15 ml PO PRN PRN PRN Reason: Loose Stool Stop: 11/27/23 12:27 Clonazepam (Clonazepam 0.5 Mg Tab) 0.125 mg PO DAILY PRN PRN Reason: Anxiety Stop: 12/01/23 12:07 Fluoxetine HCl (Fluoxetine Hcl 20 Mg Cap) 40 mg PO HS SEPIDEH Stop: 11/27/23 21:59 Last Admin: 11/01/23 21:00 Dose: 40 mg Hydroxyzine HCl (Hydroxyzine Hcl 25 Mg Tab) 50 mg PO HSZ PRN PRN Reason: Insomnia Stop: 11/27/23 12:27 Last Admin: 10/30/23 03:12 Dose: 50 mg Hydroxyzine HCl (Hydroxyzine Hcl 25 Mg Tab) 25 mg PO Q4H PRN PRN Reason: Anxiety Stop: 11/27/23 12:27 Magnesium Hydroxide (Magnesium Hydroxide Susp 30 Ml Udc) 30 ml PO DAILY PRN PRN Reason: Constipation Stop: 11/27/23 12:27 Mirtazapine (Mirtazapine Tab 15 Mg Tab) 7.5 mg PO HS SEPIDEH Stop: 12/01/23 21:59 Last Admin: 11/01/23 20:59 Dose: 7.5 mg Miscellaneous (Patient's Own Oral Contraceptive~Junel ) 1 each PO HS SEPIDEH Stop: 11/28/23 21:59 Last Admin: 11/01/23 20:59 Dose: 1 each Sodium Chloride (Sodium Chloride 0.65% Na Soln 45 Ml ([place])) 1 - 2 sprays NA PRN PRN PRN Reason: Nasal Dryness/Congestion Stop: 11/27/23 12:27 Mental Health & Subst Abuse Tx Psychiatrist Name of Psychiatrist: Mookie [facility] Psychiatrist's Therapist Name of Therapist: Willy Therapist's Date of Therapist Appointment: 11/11/23 Post Discharge Appointments Primary Care Physician Name Of Family Doctor/PCP: NARCISA Cherry-[facility] Contact Information Discharge Discharge Address: [address] [place] [address]
[2023-11-02] MEDS: clonazePAM 0.5 MG TAB PO PRN (08:57)
--- NOTE | 2023-11-03 09:03 | Psychiatric Progress Note ---
Date of Service November 03, 2023 Impression / Recommendations Impression Latricia is a 28 year old woman with a history of panic disorder, post- mood symptoms, bipolar affective disorder type II, ADHD and anxiety who was admitted for worsening mood symptoms causing inability to function and SI causing her to feel unable to remain safe. Diagnostically consistent with post- depression and anxiety and panic disorder with agoraphobia and co-morbid ADHD. She is deemed in need of psychiatric hospitalization for diagnostic clarification, safety and stabilization, medication management and development of further coping skills. 11/03/2023: Some increased anxiety today after onset of her period again which remains very irregular despite hormonal control. She also has some anticipatory anxiety about what the transition to home will be like but she's gained confidence in using more coping skills. Still dealing with some vertigo symptoms and vision changes which have remained unchanged. Tolerating her medications without any side effects. We reviewed CBT resources to continue to work on anxiety and exposure exercises. Overall, I spent a total of 30 minutes on this case including meeting with the patient, reviewing the chart, nursing report, multidisciplinary team meeting, orders, and documentation. (1) Post depression: (2) anxiety: (3) Generalized anxiety disorder with panic attacks: (4) Panic disorder: (5) Migraine: Plan 11/03/2023: Continue current medications and tx plan. Reviewed option for Buspar in the future or increase in fluoxetine if anxiety does not improve after 2 more weeks of fluoxetine use (will be ~4 weeks at higher dose at that point). 11/02/2023: Continue current medications and tx plan. 11/01/2023: Decrease mirtazapine to 7.5mg HS and decrease Klonopin to 0.125mg prn. 10/31/2023: Continue current medications and tx plan. 10/30/2023: Decrease Klonopin to 0.25mg qAM, increase mirtazapine for insomnia 10/29/2023: The patient was admitted to the [facility] ([facility]) on q15 min checks (behavioral with suicide precautions) for safety. The patient will participate in group, recreational, and milieu therapies and will be offered additional individual and family sessions as clinically appropriate. -Continue fluoxetine 40mg qd, consider titration to 60mg qd in coming days -Discontinue Seroquel -Start mirtazapine 7.5mg HS with additional 7.5mg HS prn for insomnia -Switch from lorazepam BID to Klonopin once daily -Consider use of gabapentin prn in coming days depending on response to Klonopin and mirtazapine additions -Mood Disorder Questionnaire given reported history of BPAD type II but her denial of any history of josefina or hypomania episodes Inventory Assets Strengths: supportive relationships, willing to get treatment Needs: safety and stabilization, medication adjustment, additional coping skills, increased outpatient services Suicide Risk Level Suicide Risk Level: Moderate (q15 min suicide checks) (mood improving, denies SI , able to safety contract and agrees to let nursing/staff know should they develop plan, intent or feel unable to remain safe.) Suicide Risk Level Comments: Risk Factors Assessment Male: No : Yes Do You Have Access To A Gun?: Yes ( has many guns- were secured after last admission) Health Problems: Yes (migraines) Mental Health Diagnoses: Yes Substance Use Disorders: No Previous Attempt: No Family History of Suicide: Yes Previous Psychiatric Hospitalization: Yes Protective Factors Assessment : Yes Responsible for Young Children: Yes Employed: Yes Stable Relationships: Yes Supportive Family: Yes Good Rapport with Provider: Yes Interval History Identifying Information LATRICIA CALIXTO is a 28-year-old F who currently lives in [place] with her and children, has a history of ADHD, anxiety, panic disorder, post- depression, bipolar affective disorder type II, and was admitted on 10/28/23 12:29 on a 201 voluntary commitment for worsening anxiety, depression and SI. Chief Complaint "I'm anxious, I think about discharging soon". Review of Systems Sleep Information Total Hours of Sleep: 6.5 Sleep Comments: Scheduled HS Remeron Meal Information Percent Meal Consumed - Breakfast: 100 Percent Meal Consumed - Lunch: 100 Percent Meal Consumed - Dinner: 100 Subjective Subjective Patient was seen & assessed and interval progress reviewed with treatment team nursing and social work. Attending groups, anxious last night. Family meeting working on process distress tolerance and coping with anxiety at home. Processed adding structure and a schedule. She reports increased anxiety today, which she attributes to the anticipation of going home and the onset of her period again after it stopped a few days ago. S he notices a peak in anxiety on days when she has her period. Her period has been irregular despite being on control for the past four months and she's planning to follow-up with her [employer] about this. Her anxiety was exacerbated after waking up from a nap, during which she coped by listening to a talk with headphones. She has been practicing coping skills during her stay and has not requested additional medication for anxiety. She's been doing well trying and working on coping skills. We reviewed options for CBT workbooks at home. She has not experienced any suicidal thoughts today. Physical Exam Psychiatric Orientation: alert and oriented x 3 Apperance: appropriately dressed and appropriately groomed Eye Contact: good eye contact Motor Behavior: no abnormal motor movements Speech: normal rate/rhythm/volume of speech Affect: + anxious affect Mood: + anxious mood Thought Process: goal directed thought process Thought Content: reality based without delusions Suicidal Thoughts: denies suicidal thoughts, denies suicidal plan and denies suicidal intent Homicidal Thoughts: denies homicidal thoughts Hallucinations: no auditory hallucinations and no visual hallucinations Cognition: recent memory grossly intact, remote memory grossly intact, attention grossly intact and language grossly intact Estimated Intelligence: consistent with education level Insight: + fair insight Judgment: + fair judgement Vital Signs (Past 24 Hours) Last Vital Signs Temp 36.5 C 11/03/23 06:27 Pulse 73 11/03/23 06:27 Resp 16 11/03/23 06:27 BP 110/76 11/03/23 06:27 Pulse Ox 98 10/31/23 06:30 O2 Del Method Room Air 10/31/23 06:30 Results & Data ([facility]) Current Inpatient Medications Current Inpatient Medications: Current Inpatient Medications Acetaminophen (Acetaminophen 325 Mg Tab) 650 mg PO Q4H PRN PRN Reason: Headache or Minor Fever Stop: 11/27/23 12:27 Last Admin: 10/29/23 12:30 Dose: 650 mg Al Hydrox/Mg Hydrox/Simethicone (Aluminum/Magnesium Susp 30 Ml Udc) 30 ml PO Q4H PRN PRN Reason: GI Upset Stop: 11/27/23 12:27 Bismuth Subsalicylate (Bismuth Subsalicylate Liqd 236 Ml) 15 ml PO PRN PRN PRN Reason: Loose Stool Stop: 11/27/23 12:27 Clonazepam (Clonazepam 0.5 Mg Tab) 0.125 mg PO DAILY PRN PRN Reason: Anxiety Stop: 12/01/23 12:07 Last Admin: 11/03/23 08:53 Dose: 0.125 mg Fluoxetine HCl (Fluoxetine Hcl 20 Mg Cap) 40 mg PO HS SEPIDEH Stop: 11/27/23 21:59 Last Admin: 11/02/23 20:56 Dose: 40 mg Hydroxyzine HCl (Hydroxyzine Hcl 25 Mg Tab) 50 mg PO HSZ PRN PRN Reason: Insomnia Stop: 11/27/23 12:27 Last Admin: 10/30/23 03:12 Dose: 50 mg Hydroxyzine HCl (Hydroxyzine Hcl 25 Mg Tab) 25 mg PO Q4H PRN PRN Reason: Anxiety Stop: 11/27/23 12:27 Magnesium Hydroxide (Magnesium Hydroxide Susp 30 Ml Udc) 30 ml PO DAILY PRN PRN Reason: Constipation Stop: 11/27/23 12:27 Mirtazapine (Mirtazapine Tab 15 Mg Tab) 7.5 mg PO HS SEPIDEH Stop: 12/01/23 21:59 Last Admin: 11/02/23 20:55 Dose: 7.5 mg Miscellaneous (Patient's Own Oral Contraceptive~Junel ) 1 each PO HS SEPIDEH Stop: 11/28/23 21:59 Last Admin: 11/02/23 20:58 Dose: 1 each Sodium Chloride (Sodium Chloride 0.65% Na Soln 45 Ml ([place])) 1 - 2 sprays NA PRN PRN PRN Reason: Nasal Dryness/Congestion Stop: 11/27/23 12:27 Mental Health & Subst Abuse Tx Psychiatrist Name of Psychiatrist: Mookie Gonsalez) Psychiatrist's Date Of Appointment With Psychiatric Provider: 11/10/23Wednesday Time of Appointment with Psychiatrist: 3:00 PM Psychiatric Appointment Comment: in-person Therapist Name of Therapist: Willy Therapist's Date of Therapist Appointment: 11/11/23 Time of Therapist Appointment: 11:00-12:00 Therapy Appointment Comment: intake for telehealth *THIS INITIAL VISIT IS IN PERSON/[facility] office Art Critic Name of Art Critic: [employer] Phone Number for Art Critic: [phone] Post Discharge Appointments Primary Care Physician Name Of Family Doctor/PCP: CAMILLE Hernandez) Primary Care Date of Future Appointment with PCP: 11/09/23 Time of Appointment with PCP: 2:30PM Provider Appointment Comment: *REQUEST NEUROLOGY REFERRAL Contact Information Discharge Discharge [address]: [address] [place] [id number]
--- NOTE | 2023-11-04 09:08 | Discharge Summary ---
Date of Service November 04, 2023 History of Present Illness Latricia presents for psychiatric admission for worsening depression, anxiety, insomnia and SI in the context of multiple psychosocial stressors including adjustments to her psychiatric medications following the of her now eight month old daughter with increased symptoms of severe anxiety in the post- period. She notes the SI came out of distress from her symptoms "I just don't want to feel panic /, I just want it to end, I don't want to be so exhausted". She's been having "obsessive thoughts" like worrying about not being able to drive and feels like "I work myself into a panic". She denies any obsessive thoughts about harm occurring to her children or post- psychosis or HI thoughts. She feels that hormone changes are likely a significant contributing factor as she experienced very similar symptoms following the of her 5 yo and prior to had always dealt with non-regular menstrual cycles. She is currently prescribed psychiatric medications of fluoxetine 40mg HS (increased from 20mg last week), seroquel 50mg HS, and lorazepam 0.5mg BID (breakfast and late afternoon). Ativan makes her tired but doesn't fully improve the panic. Seroquel helps with sleep but causes shortness of breath after she takes it which contributes to severe panic before bed. Additional recent history per ED CM note from 10/28/2023: "She reports that she has been having severe anxiety and panic attacks over the past 3 months. She reports a history of similar symptoms 5 months after the of her first child 5 years ago. It took time and medications, but she returned to her baseline after a year or so of treatment. She had her daughter 8 months ago, and same symptoms of anxiety, panic, and depression returned 5 months . Latricia reports that the symptoms have become so severe that she has started having suicidal thoughts of overdosing on her medications to end the constant anxiety. Latricia believes that she would not act on these thoughts, but is unsure. She is able to identify her children and family as protective factors. Latricia is diagnosed with anxiety, mood disorder, Bipolar, and ADHD. She has required 2 hospitalizations for mental health since July. Her most recent stay was last week at [facility]. She did not feel it was therapeutic facility, and if anything, it made her worse. She left after 72 hours. They did make medications changes; Prozac increased from 20mg to 40mg daily, and they added Propranolol. Latricia reports that she got severe diarrhea from the Propranolol, so she stopped taking it when she got home. She also takes Seroquel as prescribed. She reports that when these symptoms started in July Shweta Gonsalez at [facility] took her off her ADHD medications out of concern that it could be contributing to her anxiety. Latricia reports that her anxiety is constant and is feeling like she is in fight or flight 08/02. This has resulted in her feeling depressed, symptoms including; hopelessness, helplessness, isolation, poor concentrations, difficulty doing ADLs, and having crying spells. She also reports decreased appetite and poor appetite. She reports that she is constantly waking due to nightmares of panic attacks. Latricia denies past history of suicide attempts or self-harm. She denies drug, alcohol, and tobacco use. She currently sees Saroj at [place] every 2 weeks, and is also to be seeing a psychiatrist via telehealth out of [place] on November 10. She has been seeing Shweta Gonsalez with [facility] for the past 6 years, but is wanting to switch providers. She lives with her and 2 children. She feels that her and children. She expresses that her is getting frustrated with her current mental state, and she understands why. Naveen children are being cared for by her and mother. She denies thoughts of wanting to hurt them. She expresses concerns about them seeing her in hurt current state and wants to return to being able to care for them." Psychiatric ROS notable for no current nor history of symptoms of josefina, psychosis, PTSD, OCD nor eating disorder. Physical Exam Vital Signs (Past 24 Hours) Last Vital Signs Temp 36.9 C 11/04/23 06:00 Pulse 76 11/04/23 06:00 Resp 14 11/04/23 06:00 BP 115/72 11/04/23 06:00 Pulse Ox 99 11/04/23 06:00 O2 Del Method Room Air 11/04/23 06:00 See admission H&P and DOD summary. Principal Diagnosis Post Depression and Anxiety Psychiatric Data See daily stay summary. In short, patient was engaged with the social/therapeutic milieu of the unit, safety was maintained and the patient was cooperative with care. Medication changes included discontinuation of Seroquel due to side effects and no convincing evidence for prior hypomanic episodes, initiation of mirtazapine 7.5mg HS for depression and anxiety, and discontinuation of lorazepam in favor of Klonopin 0.125mg - 0.25mg daily prn for panic attacks (with plan to taper to 4-6 tabs per month in the next 2-3 months as fluoxetine takes effect and symptoms improve) and they tolerated this well. If symptoms persist in the future or worsen would consider use of Buspar and/or increase of fluoxetine to 60mg daily. A family session was held and safety plan was completed prior to discharge. She actively and insightfully participated in safety planning and in discussions about ways to seek support and recognizing warning signs and utilizing coping skills. Reviewed CBT resources including workbooks for anxiety and depression, and mobile apps that could be used for additional ways to have their safety plan and contacts easily available should thoughts of SI re-emerge in the future. Reviewed importance of seeking emergency care should SI intensify, worsen or should they feel unsafe in the future which they agree to do. On the day of discharge she stated her mood was "anxious but a good anxious, excited to go home" and remained future-oriented including seeing her kids, going to her son's t-ball game and engaging in aftercare appointments for psychiatry and therapy and with case management. Day of Discharge Assessment Today the patient voices readiness for discharge. They note improvement in mood and anxiety. They deny thoughts of harm to self or others. Thoughts are organized and they are clinically improved from admission. There is no evidence of psychosis. They improved in the hospital with support and medication adjustments. They agree to take medications as prescribed and keep follow-up appointments. At the time of the discharge they are deemed to be stable and appropriate for outpatient level of care. They are not deemed to be at imminent risk of harm to self or others. They are aware of emergency and crisis services. Knows to call 911 or go to nearest emergency care center if in a crisis which cannot be handled as an outpatient. Overall, I spent a total of 40 minutes on this case including meeting with the patient, reviewing the chart, nursing report, multidisciplinary team meeting, orders, and documentation. Transition of Care Transition Of Care Record: was reviewed with the patient Advance Directives Advance Directives Information Provided: No Mental Health Advance Directive: No Advance Directives on File: No Living Will: No Power of Flow Coordinator: No Advance Directives Reason:: Declines as Mental Health Visit. Suicide Risk Level Suicide Risk Level Comments: Acute risk is low given improvement in mood and denial of SI, lack of access to lethal means, improvement in sleep and hopefulness. Chronic risk is moderate given some non-modifiable risk factors: psychiatric co-morbid diagnoses, emotional reactivity, prior psychiatric hospitalizations, family history of by suicide but also with protective factors including: caring for young children, good social support, sense of responsibility to family and social supports, outpatient care in place, positive coping skills, positive problem solving, capacity to establish therapeutic alliance, willingness to engage with treatment and capacity for self-observation. Counseled on ways to reduce acute and chronic risk including engaging with outpatient providers, using safety plan if needed, utilizing supports, taking medication, and using coping skills. Modifiable risk factors of SI, anxiety and depression were addressed during hospitalization through development of new coping skills, family meeting, safety planning, and medication adjustments. Risk Factors Assessment Male: No : Yes Do You Have Access To A Gun?: No ( has guns but they are secured and she does not have access to them) Health Problems: Yes (migraines) Mental Health Diagnoses: Yes Substance Use Disorders: No Previous Attempt: No Family History of Suicide: Yes Previous Psychiatric Hospitalization: Yes Hopelessness: No Protective Factors Assessment : Yes Responsible for Young Children: Yes Employed: Yes Stable Relationships: Yes Supportive Family: Yes Good Rapport with Provider: Yes Discharge Data Lab Results 10/28/23 08:57 WBC 10.81 H RBC 4.38 Hgb 12.7 Hct 39.0 MCV 89.0 MCH 29.0 MCHC 32.6 RDW Std Deviation 44.1 RDW Coeff of Dionte 13.4 Plt Count 411 H MPV 8.9 L Immature Gran % (Auto) 0.3 Neut % (Auto) 81.0 Lymph % (Auto) 12.9 [place] % (Auto) 4.9 Eos % (Auto) 0.7 Baso % (Auto) 0.2 Neut # (Auto) 8.76 H Lymph # (Auto) 1.39 [place] # (Auto) 0.53 Eos # (Auto) 0.08 Baso # (Auto) 0.02 Immature Gran # (Auto) 0.03 Sodium 135 L Potassium 3.9 Chloride 105 Carbon Dioxide 23 Anion Gap 7 BUN 9 Creatinine 0.89 Est Cr Clr Drug Dosing 82.4 Est GFR ( Amer) 102.2 Est GFR (Non-Af Amer) 88.2 BUN/Creatinine Ratio 10.1 Glucose 99 Calcium 9.0 Total Bilirubin 0.9 AST 35 ALT 48 Alkaline Phosphatase 76 Total Protein 7.7 Albumin 4.3 Globulin 3.4 Albumin/Globulin Ratio 1.3 TSH 1.523 HCG, Qual Negative Urine Color Yellow Urine Appearance Clear Urine pH 7.0 Ur Specific [place] 1.016 Urine Protein Trace H Urine Glucose (UA) Negative Urine Ketones Trace H Urine Blood 3+ H Urine Nitrite Negative Urine Bilirubin Negative Urine Urobilinogen Negative Ur Leukocyte Esterase 1+ H Urine WBC (Auto) 11-20 H Urine RBC (Auto) >20 H U Hyaline Cast (Auto) 0-2 U Epithel Cells (Auto) 3-5 H Urine Bacteria (Auto) None Seen Salicylates < 3.0 L Urine Opiates Screen Neg Ur Methadone, Qual Neg Acetaminophen < 3 L Urine Barbiturates Neg Ur Phencyclidine (PCP) Neg U Amphetamin/Meth Scrn Neg MDMA (Ecstasy) Screen Neg U Benzodiazepines Scrn Neg Ur Cocaine Metabolite Neg U Marijuana (THC) Screen Neg Ethyl Alcohol mg/dL < 10.0 SARS-CoV-2, RNA, NAAT NEGATIVE Hospital Course (1) Post depression: (2) anxiety: (3) Generalized anxiety disorder with panic attacks: (4) Panic disorder: (5) Migraine: Plan 11/04/2023: She feels ready for discharge. 11/03/2023: Continue current medications and tx plan. Reviewed option for Buspar in the future or increase in fluoxetine if anxiety does not improve after 2 more weeks of fluoxetine use (will be ~4 weeks at higher dose at that point). 11/02/2023: Continue current medications and tx plan. 11/01/2023: Decrease mirtazapine to 7.5mg HS and decrease Klonopin to 0.125mg prn. 10/31/2023: Continue current medications and tx plan. 10/30/2023: Decrease Klonopin to 0.25mg qAM, increase mirtazapine for insomnia 10/29/2023: The patient was admitted to the [facility] (locked inpatient mental health unit) on q15 min checks (behavioral with suicide precautions) for safety. The patient will participate in group, recreational, and milieu therapies and will be offered additional individual and family sessions as clinically appropriate. -Continue fluoxetine 40mg qd, consider titration to 60mg qd in coming days -Discontinue Seroquel -Start mirtazapine 7.5mg HS with additional 7.5mg HS prn for insomnia -Switch from lorazepam BID to Klonopin once daily -Consider use of gabapentin prn in coming days depending on response to Klonopin and mirtazapine additions -Mood Disorder Questionnaire given reported history of BPAD type II but her denial of any history of josefina or hypomania episodes Mental Health & Subst Abuse Tx Psychiatrist Name of Psychiatrist: Mookie Gonsalez) Psychiatrist's Date Of Appointment With Psychiatric Provider: 11/10/23Wednesday Time of Appointment with Psychiatrist: 3:00 PM Psychiatric Appointment Comment: in-person Therapist Name of Therapist: [facility] Date of Therapist Appointment: 11/11/23 Time of Therapist Appointment: 11:00-12:00 Therapy Appointment Comment: intake for telehealth *THIS INITIAL VISIT IS IN PERSON/[place] office Aerial Erector Name of Aerial Erector: [facility] Phone Number for Aerial Erector: [phone] Date of Appointment with Aerial Erector: 11/05/23 Time of Appointment with Aerial Erector: 9:00 Case Management Appointment Comment: They will come to your house for your intake appointment. Post Discharge Appointments Primary Care Physician Name Of Family Doctor/PCP: NARCISA Cheatham ([facility] Mendoza) Primary Care Date of Future Appointment with PCP: 11/09/23 Time of Appointment with PCP: 2:30PM Provider Appointment Comment: *REQUEST NEUROLOGY REFERRAL Other #1: Name of Aftercare Appointment: [facility] Phone Number of Aftercare Appointment: [phone] ([phone]) Aftercare Appointment Comment: mchb.[email or web address] (support network for moms - you can call anytime) #2: Name of Aftercare Appointment: Therapist @ [facility] (Saroj) Contact Information Discharge Discharge Address: [address] [place] [id number] Discharge Plan Discharge Items Patient Disposition: Home - Self-Care Reason For Visit: MENTAL HEALTH EVAL. Discharge Diagnosis: Post Depression and Anxiety Activity: Resume your previous activity Non-emergency contact: Primary Care Provider, Psychiatrist, Therapist and Learning Disabilities Specialist Call non-emergency contact if: you have any medication questions and your symptoms worsen Follow-up/Referrals: Moe Cheatham MD [Primary Care Provider] - Diet: Regular Addtl Attending Provider Instructions: Optional mobile apps we discussed: -Suicide safety plan -Virtual Hope Box -Headspace -Youtube: consider looking up guided mindfulness meditations, restorative yoga SPECIAL CARE INSTRUCTIONS: 1. Follow through with your scheduled aftercare appointments. If unable to keep an appointment, please call to reschedule. 2. Take your medication only as prescribed. Medication should not be changed or stopped without the approval of your doctor. In the event of worsening symptoms or concerns about side effects, contact your doctor immediately. 3. Utilize new healthy coping skills, anger management skills, and stress management skills learned during your hospitalization. Journal feelings and process them with a support person. Identify stressors or situations that may result in relapse, deterioration or inappropriate behaviors and develop a plan to deal with those issues. 4. If your coping skills are ineffective and you are in crisis, contact your outpatient providers for direction. If unable to reach your providers, please call the [facility] CRISIS LINE AT , go to the [facility] walk-in center at [address], [address], [place], or go to the closest Emergency Room. 5. Avoid alcohol and un-prescribed drugs. 6. You have been provided with the Mental Health Advance Directives Pamphlet for your review. 7. Your condition is stable for discharge to outpatient level of care, but recovery is an ongoing process. Ifthoughts to harm yourself or others return, follow the safety plan developed during your stay. Planning for a safe return home includes securing weapons. Our treatment team recommends weaponsbe removed from the home until your outpatient provider reassesses your progress. In rare cases where the items themselvescannot be removed, guns and ammunitionshould be secured separatelyand keys stored by a reliable personoutside of the home. If you were admitted on an involuntary commitment, the police or other legal authorities may be involved in this process. AFTERCARE APPOINTMENTS: * Please call your insurance company prior to your scheduled appointment to co nfirm your aftercare providers are covered. Take your insurance information to your appointments. WHO TO CALL AND WHEN: Medical Emergencies: For questions or emergencies related to your hospital stay, please contact the Inpatient Behavioral Health Unit at [phone]. A marketing operations analyst is on-call 08/02 for the Behavioral Health Unit for emergencies At any time you feel your situation is an emergency, you may also call 911 immediately. National Crisis Line: 912 Pending Studies at Discharge: No Stand-Alone Forms: My [facility] Medications and DC Order Prescriptions: New fluoxetine 40 mg capsule 40 mg PO HS 30 Days Qty: 30 0RF clonazepam 0.5 mg tablet 0.125 mg PO DAILY PRN (Reason: panic attacks) 30 Days Qty: 15 0RF Rx Instructions: take 0.125mg - 0.25mg daily as needed for panic attacks mirtazapine 7.5 mg tablet 7.5 mg PO HS 30 Days Qty: 30 0RF Continued norethindrone ac-eth estradiol [Junel ()] 1.5-30 mg-mcg tablet 1 tab PO DAILY Qty: 21 11RF Rx Instructions: Take one pill everyday at the same time Discontinued quetiapine [Seroquel] 50 mg tablet 50 mg PO HS fluoxetine 20 mg capsule 40 mg PO HS lorazepam 0.5 mg Tablet 0.5 mg PO BIDM Qty: 30 0RF Rx Instructions: may take 1 additional tab daily prn panic. propranolol 10 mg tablet 10 mg PO BID PRN (Reason: Anxiety) Patient Comments: pt isn't taking Discharge Orders: Discharge Order (Routine); Ordered 11/04/23 Ordered By: Jayla Maldonado Admission Data Admit Date/Time: 10/28/23 12:29 Attending Provider: Jayla Maldonado Admit Provider: Jayla Maldonado Primary Care Provider: Moe Cheatham Other Interventions: Discharge Summary Assessment (RN) Last Done: 11/04/23 12:34 PSY Interdisciplinary Discharge Planning Last Done: 11/04/23 12:48 Coding Level of Care Code 87932 D/C day mgmt > 30 min Diagnoses Post depression F53.0 anxiety O99.345; F41.8 Generalized anxiety disorder with panic attacks F41.1; F41.0 Panic disorder F41.0 Migraine G43.909
[2023-11-04] MEDS ORDERED: DESTROY THIS MEDICATION ONE (12:17)
== END 2023-11-04 13:33 | disposition home or self-care (01) | DRG 881 ==
LOC: ED 08:32 → 3S 12:27